=== PATIENT | male | born 1970 | race Caucasian/White ===

== ENCOUNTER → 2017-03-03 | Outpatient (CLI) | payer OTHER ==
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
== END | disposition home or self-care (01) ==
LOC: C.CTS 13:52 → MERGE 13:52
PROVIDERS: ATTEND Family Medicine
DX: S92.344A Nondisplaced fracture of fourth metatarsal bone, right foot, initial encounter for closed fracture (principal); X58.XXXA Exposure to other specified factors, initial encounter

== ENCOUNTER 2020-09-16 13:09 | Inpatient (IN) ==
[2020-09-16 14:22] LABS: Basophils # (auto) 0.08 K/uL (0-0.2); Basophils % (auto) 0.6 %; Eosinophils % (auto) 1.5 %; Hematocrit (blood only) 42.7 % (42-52); Hemoglobin 14.7 g/dL (14.0-18.0); Immature Granulocytes # (auto) 0.02 K/uL (0.00-0.02); Immature Granulocytes % (auto) 0.2 %; Lymphocytes # (auto) 1.92 K/uL (1.2-3.4); Lymphocytes % (auto) 14.5 %; Mean Corpuscular Hemoglobin 27.4 pg (25-34); Mean Corpuscular Hgb Conc 34.4 g/dL (32-36); Mean Corpuscular Volume 79.7 fL (80-100); Mean Platelet Volume 11.8 fL (7.4-10.4); Monocytes # (auto) 0.99 K/uL (0.11-0.59); Monocytes % (auto) 7.5 %; Neutrophils % (auto) 75.7 %; Platelet Count 223 K/uL (130-400); RDW Standard Deviation 40.4 fL (36.4-46.3); Red Blood Count 5.36 M/uL (4.7-6.1); White Blood Count 13.21 K/uL (4.8-10.8)
[2020-09-16 14:25] LABS: Alanine Aminotransferase 65 U/L (12-78); Albumin Level 3.8 gm/dl (3.4-5.0); Aspartate Aminotransferase 336 U/L (15-37); BUN Creatinine Ratio 14.5 (10-20); Blood Urea Nitrogen 22 mg/dl (7-18); Calcium 9.1 mg/dl (8.5-10.1); Carbon Dioxide 22 mmol/L (21-32); Chloride 104 mmol/L (98-107); Est GFR (African American) 60.1 ml/min; Est GFR (Non-African American) 51.9 ml/min; Glucose 97 mg/dl (70-99); Potassium 4.1 mmol/L (3.5-5.1); Sodium 129 mmol/L (136-145)
[2020-09-16 14:28] LABS: Albumin Globulin Ratio 0.9 (0.9-2); Alkaline Phosphatase 60 U/L (45-117); Bilirubin,Total 0.6 mg/dl (0.2-1); Globulin 4.3 gm/dl (2.5-4.0); Total Protein 8.1 gm/dl (6.4-8.2)
[2020-09-16] MEDS ORDERED: ACETAMINOPHEN 1,000 MG/100 ML VIAL IV STA (15:02)
[2020-09-16] MEDS ORDERED: fentaNYL citrate 100 MCG/2 ML VIAL IV STA (15:02)
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
--- NOTE | 2020-09-16 15:42 | XRay Report ---
LEFT TIBIA AND FIBULA 2 VIEWS CLINICAL HISTORY: Left leg pain. Cramping. FINDINGS: AP and lateral views of the left tibia and fibula are obtained. No prior studies are availa ble for comparison at the time of dictation. The skeletal structures are osteopenic. No fracture is s een. The knee and ankle joints are maintained noting degenerative change. The overlying soft tissues are normal as visualized. IMPRESSION: No acute bony abnormality is identified. Electronically signed by: Samir Viera M.D. 09/16/2020 3:40 PM
[2020-09-16] MEDS ORDERED: MoRPHine SULFATE 4 MG/ML 1 ML CARP\\VIAL IV STA ×2 (15:48→17:31)
[2020-09-16] MEDS ORDERED: ETHYL CHLORIDE AER PER SPRAY 100 ML CAN EXT ONE (16:31)
[2020-09-16] MEDS ORDERED: MoRPHine SULFATE 4 MG/ML 1 ML CARP\\VIAL IV PRN (16:37)
--- NOTE | 2020-09-16 16:46 | Orthopedic Consultation ---
Date of Consultation September 16, 2020 Assessment & Plan (1) Compartment syndrome: Discussed case with Dr. Hussein. We will keep patient n.p.o. Dr. Hussein we will see the patient after his clinic is finished later this afternoon. Discussed findings with Dr. Verdugo as well. She will order Covid testing, CBC, basic metabolic panel and an EKG. History of Present Illness Reason for Consultation: Left lateral compartment syndrome Requesting Physician: Dr. Maykel Hussein Attending Physician: Dr. Verdugo History of Present Illness This 50-year-old male is seen today in the emergency department for severe left lower extremity pain that developed Wednesday and has become persistently worse over the past few days. Patient states that he woke this morning and was Unable to bear weight on his left lower extremity. He states that the pain is severe at rest. He states that his feet feel cold and are white in color. He states that initially he had tightness circumferentially around the lower leg but is localized to the lateral aspect over the past day or so. Patient denies any traumatic injury to the area. He states he has been applying some sort of emollient to help with the tension and noticed some redness after applying this. He states that he has not had anything to eat or drink since late last night. Patient states that he did have a partial amputation of his right foot performed in [place] by Dr. Bennett in June.Currently he denies chest pain, shortness of breath, fever, chills, sweats, lethargy but states that the toes in his left foot feel numb. Allergies Allergy/AdvReac Type Severity Reaction Status Date / Time No Known Allergies Allergy Verified 09/16/20 14:45 Home Medications Medication Instructions Recorded Confirmed Type atenolol 50 mg tablet 50 mg PO DAILY 05/18/19 09/16/20 History methimazole 5 mg tablet 10 mg PO DAILY #120 tab 12/18/19 09/16/20 Rx blood sugar diagnostic ([employer] #300 ea 06/05/20 06/10/20 Rx Ultra Blue Test Strip) fenofibrate 54 mg tablet 54 mg PO DAILY #90 tab 06/05/20 09/16/20 Rx gabapentin 600 mg tablet 600 mg PO TID 90 Days #270 tab 06/05/20 09/16/20 Rx lancets 30 gauge ([employer] #300 ea 06/05/20 06/10/20 Rx Lancets) lisinopril 40 mg tablet 40 mg PO DAILY #90 tab 06/05/20 09/16/20 Rx pen needle, diabetic 32 gauge x #400 ea 06/05/20 06/10/20 Rx 5/32" (BD Ultra-Fine Ebonie Pen Needle) rosuvastatin 40 mg tablet 40 mg PO DAILY #90 tab 06/05/20 09/16/20 Rx dulaglutide 1.5 mg/0.5 mL 1.5 mg SUBCUT TU 06/21/20 09/16/20 History subcutaneous pen injector (Trulicity) insulin aspart U-100 100 unit/mL 40 unit SQ DAILY 06/21/20 09/16/20 History (3 mL) subcutaneous pen (Novolog Flexpen U-100 Insulin aspart) insulin glargine 100 unit/mL (3 110 unit SQ HS 06/21/20 09/16/20 History mL) subcutaneous pen (Lantus Solostar U-100 Insulin) meloxicam 15 mg tablet 15 mg PO DAILY 06/21/20 09/16/20 History cholecalciferol (vitamin D3) 125 125 mcg PO DAILY 09/16/20 09/16/20 History mcg (5,000 unit) capsule ciprofloxacin HCl 500 mg tablet 500 mg PO Q12H 09/16/20 09/16/20 History sulfamethoxazole 800 1 tab PO Q12 09/16/20 09/16/20 History mg-trimethoprim 160 mg tablet Patient History Medical History Callus Diabetes type 2, uncontrolled Diabetic foot ulcer associated with type 2 diabetes mellitus Diabetic peripheral neuropathy associated with type 2 diabetes mellitus Dyslipidemia Foot deformity Graves disease Hypertension Hyperthyroidism Smoking Status post partial amputation of foot Surgical History H/O foot surgery Amputation- right toes Family History Mother Diabetes Social History Smoking Status: Current every day smoker Tobacco Type: Cigarettes Hx Alcohol Use: No Hx Substance Use: No Communication Ability: Effective Beliefs That Will Affect Care: None marital status: / Current Living Situation: Parent and Significant Other Current Living Situation Comment: LIVES WITH GIRLFRIEND AND PT'S MOTHER 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al status: unemployed 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 I was unable to palpate dorsalis pedis or posterior tibial pulses. Capillary refill was greater than 3 seconds. Foot was cold to touch and white in color. Lateral aspect of the lower leg was very tense with exquisite tenderness to palpation. Patient experienced excruciating pain with the leg elevated at rest. Using the X2TV compartment syndrome test meter the syringe was inserted into the lateral compartment and read 146 mm Hg. Results & Data ([facility]) Vital Signs (Past 12 Hours) Vital Signs Temp Pulse Pulse Resp BP BP Pulse Ox 09/16/20 15:34 92 H 18 140/87 97 09/16/20 15:28 88 20 139/84 98 09/16/20 13:31 36.7 C 99 H 20 143/91 H 96 Diagnostic Findings Laboratory Results WBC 13.21 K/uL (4.8-10.8) H 09/16/20 13:50 RBC 5.36 M/uL (4.7-6.1) 09/16/20 13:50 Hgb 14.7 g/dL (14.0-18.0) 09/16/20 13:50 Hct 42.7 % (42-52) 09/16/20 13:50 MCV 79.7 fL (80-100) L 09/16/20 13:50 MCH 27.4 pg (25-34) 09/16/20 13:50 MCHC 34.4 g/dL (32-36) 09/16/20 13:50 RDW Std Deviation 40.4 fL (36.4-46.3) 09/16/20 13:50 RDW Coeff of Alondra 14.0 % (11.5-14.5) 09/16/20 13:50 Plt Count 223 K/uL (130-400) 09/16/20 13:50 MPV 11.8 fL (7.4-10.4) H 09/16/20 13:50 Immature Gran % (Auto) 0.2 % 09/16/20 13:50 Neut % (Auto) 75.7 % 09/16/20 13:50 Lymph % (Auto) 14.5 % 09/16/20 13:50 Howell % (Auto) 7.5 % 09/16/20 13:50 Eos % (Auto) 1.5 % 09/16/20 13:50 Baso % (Auto) 0.6 % 09/16/20 13:50 Neut # (Auto) 10.00 K/uL (1.4-6.5) H 09/16/20 13:50 Lymph # (Auto) 1.92 K/uL (1.2-3.4) 09/16/20 13:50 Howell # (Auto) 0.99 K/uL (0.11-0.59) H 09/16/20 13:50 Eos # (Auto) 0.20 K/uL (0-0.5) 09/16/20 13:50 Baso # (Auto) 0.08 K/uL (0-0.2) 09/16/20 13:50 Immature Gran # (Auto) 0.02 K/uL (0.00-0.02) 09/16/20 13:50 ESR 38 mm/hr (0-20) H 09/16/20 13:50 Sodium 129 mmol/L (136-145) L 09/16/20 13:50 Potassium 4.1 mmol/L (3.5-5.1) 09/16/20 13:50 Chloride 104 mmol/L (98-107) 09/16/20 13:50 Carbon Dioxide 22 mmol/L (21-32) 09/16/20 13:50 Anion Gap 3.0 (3-11) 09/16/20 13:50 BUN 22 mg/dl (7-18) H 09/16/20 13:50 Creatinine 1.53 mg/dl (0.6-1.4) H 09/16/20 13:50 Est Cr Clr Drug Dosing Not Reportable 09/16/20 13:50 Est GFR ( Amer) 60.1 ml/min 09/16/20 13:50 Est GFR (Non-Af Amer) 51.9 ml/min 09/16/20 13:50 BUN/Creatinine Ratio 14.5 (10-20) 09/16/20 13:50 Glucose 97 mg/dl (70-99) 09/16/20 13:50 Lactate 1.7 mmol/L (0.4-2.0) 09/16/20 15:57 Calcium 9.1 mg/dl (8.5-10.1) 09/16/20 13:50 Total Bilirubin 0.6 mg/dl (0.2-1) 09/16/20 13:50 AST 336 U/L (15-37) H 09/16/20 13:50 ALT 65 U/L (12-78) 09/16/20 13:50 Alkaline Phosphatase 60 U/L (45-117) 09/16/20 13:50 C-Reactive Protein 3.27 mg/dl (0-0.29) H 09/16/20 13:50 Total Protein 8.1 gm/dl (6.4-8.2) 09/16/20 13:50 Albumin 3.8 gm/dl (3.4-5.0) 09/16/20 13:50 Globulin 4.3 gm/dl (2.5-4.0) H 09/16/20 13:50 Albumin/Globulin Ratio 0.9 (0.9-2) 09/16/20 13:50 Impressions Tibia/Fibula X-Ray 09/16/20 15:13 LEFT TIBIA AND FIBULA 2 VIEWS CLINICAL HISTORY: Left leg pain. Cramping. FINDINGS: AP and lateral views of the left tibia and fibula are obtained. No prior studies are available for comparison at the time of dictation. The skeletal structures are osteopenic. No fracture is seen. The knee and ankle joints are maintained noting degenerative change. The overlying soft tissues are normal as visualized. IMPRESSION: No acute bony abnormality is identified. Electronically signed by: Samir Viera M.D. 09/16/2020 3:40 PM (1) Compartment syndrome Compartment syndrome location: lower extremity Compartment syndrome type: non-traumatic Laterality: left Qualified Code(s): M79.A22 - Nontraumatic compartment syndrome of left lower extremity
[2020-09-16] MEDS ORDERED: PROPOFOL IV EMULSION 10 MG/ML 20 ML VIAL IV ONE (17:48)
[2020-09-16] MEDS ORDERED: ONDANSETRON INJ 2 MG/ML 2 ML VIAL ONE (17:48)
[2020-09-16] MEDS ORDERED: GLYCOPYRROLATE 0.2 MG/ML VIAL ONE (17:48)
[2020-09-16] MEDS ORDERED: ROCURONIUM BROMIDE 10 MG/ML 5 ML VIAL IV ONE (17:48)
[2020-09-16] MEDS ORDERED: ePHEDrine sulfate 50 MG/ML SYR ONE (17:48)
[2020-09-16] MEDS ORDERED: MIDAZOLAM HCL 1 MG/ML 2ML VIAL ONE (17:48)
[2020-09-16] MEDS ORDERED: LIDOCAINE 2% 2 ML VIAL/AMP(20MG/ML) INFIL ONE (17:48)
[2020-09-16] MEDS ORDERED: NEOSTIGMINE METHYLSULFATE 1 MG/ML 10ML VIAL ONE (17:48)
[2020-09-16] MEDS ORDERED: PHENYLEPHRINE 100MCG/ML 5ML SYR ONE (17:48)
[2020-09-16] MEDS ORDERED: fentaNYL citrate 100 MCG/2 ML VIAL ONE (17:49)
[2020-09-16] MEDS ORDERED: ATROPINE SULFATE 0.1 MG/ML 10ML SYR IV PRN (18:03)
[2020-09-16] MEDS ORDERED: fentaNYL citrate 100 MCG/2 ML VIAL IV PRN (18:03)
[2020-09-16] MEDS ORDERED: ceFAZolin 2000MG 2,000 MG/15 ML SYR IV ONE (18:03)
[2020-09-16] MEDS ORDERED: ePHEDrine sulfate 50 MG/ML AMP IV PRN (18:03)
[2020-09-16] MEDS ORDERED: ONDANSETRON INJ 2 MG/ML 2 ML VIAL IV PRN ×2 (18:03→20:41)
[2020-09-16] MEDS ORDERED: HYDROmorphone INJ 2 MG/ML SYR/VIAL IV PRN (18:03)
--- NOTE | 2020-09-16 18:03 | Anesthesiology Consultation ---
Date of Service September 16, 2020 Assessment & Plan ASA [id number] Proposed Anesthesia Anesthesia Type: General Risk / Benefits Reviewed With: PT / POA / Parent / Guardian, Accepts Plan and Informed Consent Obtained History Surgery Operation Date: 09/16/20 10:20 Proposed Procedures p Left Leg Anterior and Lateral Compartment Release/Fasciotomy - Maykel Hussein MD Height/Weight Height: 6 ft 3 in Allergies Allergy/AdvReac Type Severity Reaction Status Date / Time No Known Allergies Allergy Verified 09/16/20 14:45 Medications Home Medications Medication Instructions Recorded Confirmed Last Taken atenolol 50 mg tablet 50 mg PO DAILY 05/18/19 09/16/20 09/16/20 methimazole 5 mg tablet 10 mg PO DAILY #120 tab 12/18/19 09/16/20 09/16/20 blood sugar diagnostic ([employer] #300 ea 06/05/20 06/10/20 Unknown Ultra Blue Test Strip) fenofibrate 54 mg tablet 54 mg PO DAILY #90 tab 06/05/20 09/16/20 09/16/20 gabapentin 600 mg tablet 600 mg PO TID 90 Days #270 tab 06/05/20 09/16/20 09/16/20 lancets 30 gauge ([employer] #300 ea 06/05/20 06/10/20 Unknown Lancets) lisinopril 40 mg tablet 40 mg PO DAILY #90 tab 06/05/20 09/16/20 09/16/20 pen needle, diabetic 32 gauge x #400 ea 06/05/20 06/10/20 Unknown 532" (BD Ultra-Fine Ebonie Pen Needle) rosuvastatin 40 mg tablet 40 mg PO DAILY #90 tab 06/05/20 09/16/20 09/16/20 dulaglutide 1.5 mg/0.5 mL 1.5 mg SUBCUT TU 06/21/20 09/16/20 09/10/20 subcutaneous pen injector (Trulicity) insulin aspart U-100 100 unit/mL 40 unit SQ DAILY 06/21/20 09/16/20 09/16/20 (3 mL) subcutaneous pen (Novolog 40 units Flexpen U-100 Insulin aspart) insulin glargine 100 unit/mL (3 110 unit SQ HS 06/21/20 09/16/20 09/15/20 mL) subcutaneous pen (Lantus Solostar U-100 Insulin) meloxicam 15 mg tablet 15 mg PO DAILY 06/21/20 09/16/20 09/16/20 cholecalciferol (vitamin D3) 125 125 mcg PO DAILY 09/16/20 09/16/20 09/16/20 mcg (5,000 unit) capsule ciprofloxacin HCl 500 mg tablet 500 mg PO Q12H 09/16/20 09/16/20 09/16/20 sulfamethoxazole 800 1 tab PO Q12 09/16/20 09/16/20 09/16/20 mg-trimethoprim 160 mg tablet Active Medications Generic Name Dose Route Start Last Admin Trade Name Freq PRN Reason Stop Dose Admin Morphine Sulfate 4 mg 09/16/20 16:37 09/16/20 16:41 Morphine Sulfate 4 Mg/Ml 1 Ml Carp\\Vial IV 09/30/20 16:36 4 mg Q2H PRN Administration Pain NPO Date Last Intake of Fluids: 09/16/20 Time Last Intake of Fluids: 12:00 Date Last Intake of Solids: 09/16/20 Time Last Intake of Solids: 00:00 Past Medical History Medical History Callus Diabetes type 2, uncontrolled Diabetic foot ulcer associated with type 2 diabetes mellitus Diabetic peripheral neuropathy associated with type 2 diabetes mellitus Dyslipidemia Foot deformity Graves disease Hypertension Hyperthyroidism Smoking Status post partial amputation of foot Exercise / Class Metabolic Activity III < 4 Walking/Shop/Light housework Past Family History Family History Mother Diabetes Past Surgical History Surgical History H/O foot surgery Amputation- right toes Past Anesthesia History No Hx of Anesthesia Complications and No Family Hx of Anesthesia Complications History of PONV No Hx of PONV and No Hx of Motion Sickness Social History Smoking Status: Current every day smoker Hx Alcohol Use: No Hx Substance Use: No Review of Systems denies fever/cough/ colds/ chest pain/ SOB/ JOSE denies JOSE Physical Exam Vital Signs Last Vital Signs Temp 36.7 C 09/16/20 13:31 Pulse 86 09/16/20 17:42 Resp 20 09/16/20 17:42 BP 129/85 09/16/20 17:42 Pulse Ox 96 09/16/20 17:42 ENMT Mouth: + dentition abnormality and + poor dentition; no TMJ abnormality Thyromental Distance: > or= 3.5 Finger Breadths Mallampati Class: II Neck + facial hair; neck extension not limited Respiratory normal respiratory effort; no respiratory distress Auscultation: lungs clear to auscultation bilaterally Cardiovascular Rate/Rhythm: regular rate and regular rhythm Neurologic moves all extremities Psychiatric Orientation: alert and oriented x 3 Testing Laboratory Results 09/16/20 13:50 09/16/20 13:50
--- NOTE | 2020-09-16 19:37 | Operative Report ---
Post Operative Report Pre & Post Diagnosis Operation Date: 09/16/20 10:20 Pre-Op Diagnosis: Left leg compartment syndrome Post-Op Diagnosis: Left leg compartment syndrome I identified the patient and participated in the time-out.: Yes Procedure Operation Date: 09/16/20 10:20 Actual Procedures p Left Leg Anterior and Lateral Compartment Fasciotomy(Left) - Maykel Hussein MD Surgeon EDSON Hussein MD [employer] Tanmay Monaco PA-C Estimated Blood Loss 10 Findings Consistent with Post-Op Diagnosis Specimens none Drains none Complications none Disposition Accompanied Patient To Recovery: Yes Indications This 50-year-old male presented to the ED with complaints of intractable left leg pain. Symptoms began on Wednesday evening. Pain has persisted. He initially thought it was a cramp, but it would not resolve. Evaluation in the ED revealed was consistent with compartment syndrome. He was taken emergently to the OR. Description of Procedure Patient was taken to the operating room after being administered general anesthesia. He was prepped and draped in the usual sterile fashion. Please see Dr. Hussein's operative report for specifics of the procedure. I was present for the entire case from initial patient positioning through final wound closure. Assistance was provided in tissue retraction, hemostasis, and final dressing management. Patient was taken to the recovery room in satisfactory condition. I attest to the content of the Intraoperative Record and any orders documented therein. Any exceptions are noted below.
--- NOTE | 2020-09-16 19:40 | Operative Report ---
Post Operative Report Pre & Post Diagnosis Operation Date: 09/16/20 10:20 Pre-Op Diagnosis: Left leg compartment syndrome Post-Op Diagnosis: Left leg compartment syndrome I identified the patient and participated in the time-out.: Yes Procedure Operation Date: 09/16/20 10:20 Actual Procedures p Left Leg Anterior and Lateral Compartment Fasciotomy(Left) - Maykel Hussein MD Surgeon Maykel Hussein MD Child Care Coordinator Tristen Monaco no resident or fellow available Estimated Blood Loss 10 Findings Consistent with Post-Op Diagnosis Clinically normal-appearing pressures within the anterior and posterior compart ments. There was bleeding muscle in both the anterior and posterior compartments. The muscles did not bulge out of the fascial compartments. The muscles were contractile tile with Bovie electrocautery. The lateral compartment was very tense and bulged out of the compartment when opened. The muscle was darker in color almost bruised. It was not contractile to Bovie electrocautery but it was showing evidence of capillary bleeding. Specimens None Anesthesia Type General Complications None Disposition Accompanied Patient To Recovery: No Disposition: Recovery Room Indications Patient is 50. He has an approximately 48-hour history of the apparent spontaneous onset of left lateral leg pain which he describes as a cramp. He came to the emergency room today. I was notified about this at approximately 3:30 PM. ALLI Toussaint attended to the patient and measured the lateral compartment pressure at 143. I assessed the patient at approximately 5 PM and agreed with the diagnosis of anterior and or lateral compartment syndrome. He was then taken urgently to the operating room for fasciotomy. There is no history of injury. He has weakness of foot eversion and dorsiflexion as well as numbness on the top of the foot. Circulation is normal. Clinically there is enlargement and bulging of the anterior lateral compartment muscles. He is not on blood thinners. He has had a recent right foot operation for apparent infection. He is diabetic. I have recommended urgent decompression and he agreed to proceed. I discussed with him the possibility that there could already be permanent tissue damage given the timeframe from the onset of his symptoms until surgical management. We also discussed the possibility for other things including an a bscess. Description of Procedure Informed consent obtained. Patient identified. He identified the operative site as the left leg. I marked with my initials. A preoperative surgical timeout was performed. A preop dose of antibiotics was given. He was taken to the operating room and positioned supine on the operating room table. His Covid test came back negative. Initially we were following Covid precautions protocol but once the test came back this was not necessary. A bump was placed under the left hip. A tourniquet is applied to the left thigh but not inflated. The left leg was prepped and draped in the usual sterile fashion. DVT prophylaxis with an SCD on the contralateral limb. The examination showed capillary refill less than 2 seconds in the foot and toes with dorsalis pedis and posterior tib pulses 1-2+. There was bulging over the anterolateral aspect of the leg from several centimeters distal to the fibular head to about 18 to 20 cm distal. I marked out an incision just in front of the shaft of the fibula and made an incision over the proximal two thirds of the leg approximately 18 to 20 cm in length. I elevated the subcutaneous tissue preserving perforators were possible. I identified the anterior lateral compartments. The anterior compartment was incised. The muscle heartily bulged out of the compartment. I then performed dissection with the scissors proximally and distally supra and subfascially and then released the entire compartment from the tibial proximally distally within 10 cm of the tip of the lateral malleolus. The muscle was contractile and had capillary bleeding. I identified then the lateral compartment which was obviously bulging. This was incised in a likewise fashion and the muscle immediately bulged out substantially. I used a dissecting scissors to elevate the tissue above and below the fascia and then incised both proximally and distally. This was done under direct visualization with the scissors. I did not see or feel the superficial peroneal nerve distally. Proximally I released up to the fibular neck only the fascia and did not encounter the proximal perone al nerve at the fibular neck. The muscle in the lateral compartment was friable appeared bruised and was not contractile. It did have microcapillary bleeding present. I then felt the posterior compartment and that tissue felt normal. I elevated the fascia a little bit front and back on the lateral compartment. I incised the posterior compartment fascia through the lateral compartment and it did not bulge at all. It was soft. The muscle was pink and contractile. The muscle in the anterior compartment was also contractile with Bovie. The wounds were copiously irrigated with sterile saline I left the wounds open. They were covered with Xeroform 4 x 4's ABD and a noncircumferential nonpressure generating dressing consisting of Tegaderms. The patient was awake from anesthesia difficulty taken to recovery room in stable condition. There were no specimens or complications counts were correct blood loss is estimated to be 10 cc. Meticulous hemostasis was performed with electrocautery. At the conclusion of the operation spoke to patient's mother and informed her of my findings. I discussed with her the concerning findings for the lateral compartment musculature. This is potentially necrotic tissue. Further surgery is likely to be necessary. He will be admitted to PCU and will consult medicine. He will have hourly neurovascular checks. Consider returning to the OR and 48 to 72 hours to recheck muscle and potentially close wounds. The wound will not be iced and will be kept in neutral elevation. I attest to the content of the Intraoperative Record and any orders documented therein. Any exceptions are noted below.
[2020-09-16] MEDS ORDERED: PHARMACY GLYCEMIC MGMT CONSULT PRN (19:54)
--- NOTE | 2020-09-16 20:04 | Anesthesiology Progress Note ---
Date of Service September 16, 2020 Anesthesia Post Procedure Vital Signs Vital Signs: Temp Pulse Pulse Pulse Resp BP BP 09/16/20 20:00 75 16 136/72 09/16/20 19:50 79 20 119/71 09/16/20 19:40 83 14 119/57 L 09/16/20 19:32 36.4 C L 80 14 92/54 L 09/16/20 18:02 36.6 C 79 20 09/16/20 17:42 86 20 129/85 09/16/20 17:14 94 H 20 09/16/20 15:34 92 H 18 09/16/20 15:28 88 20 09/16/20 13:31 36.7 C 99 H 20 143/91 H BP Pulse Ox 09/16/20 20:00 98 09/16/20 19:50 99 09/16/20 19:40 95 09/16/20 19:32 95 09/16/20 18:02 150/81 H 94 09/16/20 17:42 96 09/16/20 17:14 121/80 96 09/16/20 15:34 140/87 97 09/16/20 15:28 139/84 98 09/16/20 13:31 96 Pain Intensity Left Calf: Pain Intensity: 8 Transfer of Care Handoff Completed per policy Notes Mental Status: alert / awake / arousable and participated in evaluation Patient Amnestic to Procedure: Yes Nausea / Vomiting: adequately controlled Pain: adequately controlled Airway Patency, RR, SpO2: stable & adequate BP & HR: stable & adequate Hydration State: stable & adequate Anesthetic Complications: no major complications apparent and Pt Satisfied with anesthetic care
[2020-09-16] MEDS ORDERED: TAMSULOSIN HCL 0.4 MG CAP PO PRN (20:41)
[2020-09-16] MEDS ORDERED: MAGNESIUM HYDROXIDE SUSP 30 ML UDC PO PRN (20:41)
[2020-09-16] MEDS ORDERED: diphenhydrAMINE 50 MG/ML VIAL IV PRN (20:41)
[2020-09-16] MEDS ORDERED: NALOXONE HCL 0.4 MG/1 ML VIAL/CARP IV PRN (20:41)
[2020-09-16] MEDS ORDERED: bisacodyL 10 MG SUPP PR PRN (20:41)
[2020-09-16] MEDS ORDERED: METOCLOPRAMIDE HCL INJ 5 MG/ML 2 ML VIAL IV PRN (20:41)
[2020-09-16] MEDS ORDERED: ALUMINUM/MAGNESIUM SUSP 30 ML UDC PO PRN (20:41)
[2020-09-16] MEDS ORDERED: SODIUM CHLORIDE 0.9% 1000ML 1,000 ML IV SCH (21:00)
[2020-09-16] MEDS ORDERED: GLUCOSE 10 TABS/TUBE PO PRN (21:15)
[2020-09-16] MEDS ORDERED: DEXTROSE 50% 50 ML SYRINGE IV PRN (21:15)
[2020-09-16] MEDS ORDERED: GLUCOSE 40% GEL 15 GM TUBE PO PRN (21:15)
[2020-09-16] MEDS ORDERED: INSULIN GLARGINE SOLOSTAR 100 UNITS/ML 3 ML PEN SC ONE (21:15)
[2020-09-16] MEDS ORDERED: CARBOHYDRATES FOR HYPOGLYCEMIA PO PRN (21:15)
[2020-09-16] MEDS ORDERED: GLUCAGON FOR INJ 1 MG VIAL IM PRN (21:15)
[2020-09-16] MEDS: DOCUSATE SODIUM 100 MG CAP PO SCH (21:50)
[2020-09-16] MEDS: SENNA 8.6 MG TAB PO SCH (21:53)
[2020-09-16] MEDS: SULFAMETHOXAZOLE/TRIMETHOPRIM DS 800/160MG TAB PO SCH (21:54)
[2020-09-16] MEDS: GABAPENTIN 600 MG TAB PO SCH (21:55)
[2020-09-16] MEDS: ACETAMINOPHEN 500 MG TAB PO SCH (21:55)
[2020-09-16] MEDS: INSULIN ASPART 100 UNITS/ML 3 ML PEN SC SCH (21:58)
[2020-09-16] MEDS: LACTATED RINGER'S 1,000 ML IV SCH (22:05)
--- NOTE | 2020-09-16 22:16 | Hospitalist Consultation ---
Date of Consultation September 16, 2020 Assessment & Plan (1) Compartment syndrome: Surgical Fasciotomy to left lower leg- anterior and lateral compartments released. - EBL 10 ml - surgical site care per primary team- drains, dressing - ABX per primary team - Follow NV/CV exams already ordered q1 hour - Follow muscle injury pattern- likely cause of his elevated AST of 336 (rhabdo/muscle injry) - LR at 125 per hour follow urine output to guide volume replacement - CMP to follow AST and renal function in the morning - CK in the morning- recommend repeat later in day to ensure downtrend Patient is on tiered pain medications with rescue narcan available VTE: SCD's- chemoprophylaxis per primary team (2) Diabetes type 2, uncontrolled: Pharmacy consult placed by home team for glycemic control - Basal bolus dosing entered by pharmacy- follow (3) Diabetic foot ulcer associated with type 2 diabetes mellitus: S/p amputation in June 2020 - He reports that he was placed on Cipro at his most recent visit for "an odor" - Recommend reviewing his [facility] records and culture data if available - Currently received ANCEF preop and postoperatively and his Bactrim DS was restarted. - Goal would be to continue coverage or equivalent (4) MARIA ANTONIA (acute kidney injury): Stage I mild- with baseline [employer] at 1.3-- currnt 1.53 - Follow in morning s/p fascitomiy - LR at 125ml/hr, adjust based on urine output - HCO3 22 - Goal Euvolemia to slight positive postoperative- LR at 125 ml per hour (5) Dyslipidemia: Continue Rosuvastatin 40 mg Daily and continue fenofibrate no acute need (6) Hypertension: Currently controlled goal would be <130 with DM, HTN, HLD - Recommend holding lisinopril for 24-48 hours ensure renal function stable - Consider adding PRN for SBP >160-180- follow (7) Obesity, morbid, BMI 40.0-49.9: Chronic- excessive calorie intake - weight loss would assist in decreasing overall CV mortality risk (8) Graves disease: Continue methimazole History of Present Illness Reason for Consultation: Medical management and following of kidney function following compartment syndrome Requesting Physician: Dr. Keenan MERCER Attending Physician: Maykel Hussein MD History of Present Illness 50 YOM with past medical history of: DM and diabetic ulcerations for which he follows with the wound clinic, HTN, HLD, Current smoker 1PPD, Graves disease on methimazole, neuropathy, and 3 toe amputation in June2020 of right foot. POD #0 from left anterior and lateral compartment fasciotomy secondary to spontaneous compartment syndrome. Patient reported to the EMD today with approximately 48 hours of left calf pain, that he described as a "bad cramp that would not go away". He denies any trauma or injury to the leg as well as no physical stress to his legs. He reports that he was wearing a walking boot to his right foot secondary to ulcerations. He had amputation performed in [facility] in June, and went back there this past week for it developing "an odor", where he reports they put him on Cipro and Bactrim orally. He was Urgently taken to the OR by Orthopaedics for fasciotomy as he elevated compartment pressure of 143, 10/10 pain, decrease pulse, and inability to flexion or extension of the left ankle. Patient was evaluated in the room post PACU. He was briskly awake, and had tolerated some ice water. He feels his pain is controlled and feels the leg is "better", he is able to flex and extend his left ankle and wiggle his toes, lower leg is warm and DP and PT are palpable with sensation circumferentially present around dressing and leg. He has yet to void post-operatively. Additions: - IVF changed to LR and rate increased to 125 ml/hour - CMP, CBC, CK added to morning labs - Bladder scan prn for decreased to no urine output (<120ml/4 hours) Held: - Lisinopril morning dose- follow renal function and volume status Discussed case with Dr. Gonzalez realreyna and for follow up throughout the night. Allergies Allergy/AdvReac Type Severity Reaction Status Date / Time No Known Allergies Allergy Verified 09/16/20 14:45 Home Medications Medication Instructions Recorded Confirmed Type atenolol 50 mg tablet 50 mg PO DAILY 05/18/19 09/16/20 History methimazole 5 mg tablet 10 mg PO DAILY #120 tab 12/18/19 09/16/20 Rx blood sugar diagnostic (OneTouch #300 ea 06/05/20 06/10/20 Rx Ultra Blue Test Strip) fenofibrate 54 mg tablet 54 mg PO DAILY #90 tab 04/28/21 08/09/21 Rx gabapentin 600 mg tablet 600 mg PO TID 90 Days #270 tab 06/05/20 09/16/20 Rx lancets 30 gauge (OneTouch Delica #300 ea 06/05/20 06/10/20 Rx Lancets) lisinopril 40 mg tablet 40 mg PO DAILY #90 tab 06/05/20 09/16/20 Rx pen needle, diabetic 32 gauge x #400 ea 06/05/20 06/10/20 Rx 5/32" (BD Ultra-Fine Ebonie Pen Needle) rosuvastatin 40 mg tablet 40 mg PO DAILY #90 tab 06/05/20 09/16/20 Rx dulaglutide 1.5 mg/0.5 mL 1.5 mg SUBCUT TU 06/21/20 09/16/20 History subcutaneous pen injector (Trulicity) insulin aspart U-100 100 unit/mL 40 unit SQ DAILY 06/21/20 09/16/20 History (3 mL) subcutaneous pen (Novolog Flexpen U-100 Insulin aspart) insulin glargine 100 unit/mL (3 110 unit SQ HS 06/21/20 09/16/20 History mL) subcutaneous pen (Lantus Solostar U-100 Insulin) meloxicam 15 mg tablet 15 mg PO DAILY 06/21/20 09/16/20 History cholecalciferol (vitamin D3) 125 125 mcg PO DAILY 09/16/20 09/16/20 History mcg (5,000 unit) capsule ciprofloxacin HCl 500 mg tablet 500 mg PO Q12H 09/16/20 09/16/20 History sulfamethoxazole 800 1 tab PO Q12 09/16/20 09/16/20 History mg-trimethoprim 160 mg tablet Patient History Medical History Callus Diabetes type 2, uncontrolled Diabetic foot ulcer associated with type 2 diabetes mellitus Diabetic peripheral neuropathy associated with type 2 diabetes mellitus Dyslipidemia Foot deformity Graves disease Hypertension Hyperthyroidism Smoking Status post partial amputation of foot Surgical History H/O foot surgery Amputation- right toes Family History Mother Diabetes Social History Smoking Status: Current every day smoker Tobacco Type: Cigarettes Cigarettes Per Day: 20; Hx Alcohol Use: No Hx Substance Use: No Preferred Language: Belarusian Communication Ability: Effective 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: No Beliefs That Will Affect Care: None marital status: / Current Living Situation: Family and Significant Other Current Living Situation Comment: LIVES WITH GIRLFRIEND AND PT'S MOTHER 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al status: unemployed 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: "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" Other Information That Helps Us Care for You: No Feels Safe at Home: Yes Safety Concerns: Feels Safe At This Time caffeine: Yes (Consumes on average 1 cup of regular coffee per day ) during the past year weight has: remained stable Physical Activity Frequency Comment: Rarely Assistive Devices: Walker Review of Systems Review of Systems: REVIEW OF SYSTEMS: Constitutional: No fever, sweats or chills Eyes: No diplopia, no worsening or blurred vision ENT: normal hearing, no trouble swallowing Respiratory: No cough, sputum, dyspnea at rest or on exertion Cardiovascular: No chest pain, tightness or palpitations Abdomen: No pain, nausea, vomiting, diarrhea or constipation Musculoskeletal: (+) knee pain, left lower leg pain, swelling Neurologic: No weakness, numbness/tingling, or balance problems Psychiatric: No anxiety or depression Skin: No rash or itch Physical Exam Physical Exam: PHYSICAL EXAM: General: awake, alert, no apparent distress Head: Normocephalic, atraumatic ENT: PERRL, EOMI, no pharyngeal exudate, mucous membranes moist Neuro: AAO x 3, speech clear and appropriate, strength intact bilaterally 5/5 upper, 5/5 right lower extremity, minimal flexion and extensor movement of left ankle, wiggles toes, sensation intact and pain controlled, compartment of LLE is soft Chest: equal rise and fall of the chest, no accessory muscle use, no heaves or thrills, scattered wheeze bilaterally, on 2LNC Cardiac: Regular rate and rhythm, telemetry reviewed- NSR no ectopy, skin warm dry, cap refill <3 seconds, peripheral pusles +2 no JVD, no murmur, no edema, left toes warm and pulses 2+ DP and PT GI: NABS x 4 quadrants, soft, nontender to palpation, no rebound, guarding or tenderness : Spontaneously voiding, no pain, no CVA tenderness, MSK: right foot wrapped in kerlex clean and dry, s/p 3 toe amputation(he has no remaining toes on the right foot). Psych: Normal mood and affect Skin: no rash or erythema Results & Data Results & Data ([facility]) Vital Signs (Past 12 Hours) Vital Signs Temp Pulse Pulse Pulse Resp BP BP 09/16/20 21:35 35.6 C L 77 12 128/69 09/16/20 21:05 36.6 C 72 13 111/67 09/16/20 20:25 37 C 88 16 135/79 09/16/20 20:10 36.2 C L 77 16 129/76 09/16/20 20:00 75 16 136/72 09/16/20 19:50 79 20 119/71 09/16/20 19:40 83 14 119/57 L 09/16/20 19:32 36.4 C L 80 14 92/54 L 09/16/20 18:02 36.6 C 79 20 09/16/20 17:42 86 20 129/85 09/16/20 17:14 94 H 20 09/16/20 15:34 92 H 18 09/16/20 15:28 88 20 09/16/20 13:31 36.7 C 99 H 20 143/91 H BP Pulse Ox 09/16/20 21:35 94 09/16/20 21:05 95 09/16/20 20:25 99 09/16/20 20:10 95 09/16/20 20:00 98 09/16/20 19:50 99 09/16/20 19:40 95 09/16/20 19:32 95 09/16/20 18:02 150/81 H 94 09/16/20 17:42 96 09/16/20 17:14 121/80 96 09/16/20 15:34 140/87 97 09/16/20 15:28 139/84 98 09/16/20 13:31 96 Laboratory Results Abnormal Labs 09/16/20 09/16/20 09/16/20 13:50 13:50 13:50 WBC 13.21 H MCV 79.7 L MPV 11.8 H Neut # (Auto) 10.00 H Lipscomb # (Auto) 0.99 H ESR 38 H Sodium 129 L BUN 22 H Creatinine 1.53 H POC Glucose AST 336 H C-Reactive Protein Globulin 4.3 H 09/16/20 09/16/20 09/16/20 13:50 19:34 21:32 WBC MCV MPV Neut # (Auto) Lipscomb # (Auto) ESR Sodium BUN Creatinine POC Glucose 139 H 150 H AST C-Reactive Protein 3.27 H Globulin Diagnostic Findings Tibia/Fibula X-Ray 09/16/20 15:13 LEFT TIBIA AND FIBULA 2 VIEWS CLINICAL HISTORY: Left leg pain. Cramping. FINDINGS: AP and lateral views of the left tibia and fibula are obtained. No prior studies are available for comparison at the time of dictation. The skeletal structures are osteopenic. No fracture is seen. The knee and ankle joints are maintained noting degenerative change. The overlying soft tissues are normal as visualized. IMPRESSION: No acute bony abnormality is identified. Electronically signed by: Samir Viera M.D. 09/16/2020 3:40 PM Medications Administered Home Medications atenolol 50 mg tablet 50 mg PO DAILY 05/18/19 [History Confirmed 09/16/20] methimazole 5 mg tablet 10 mg PO DAILY #120 tab 12/18/19 [Rx Confirmed 09/16/20] blood sugar diagnostic ([employer] Ultra Blue Test Strip) #300 ea 06/05/20 [Rx Confirmed 06/10/20] fenofibrate 54 mg tablet 54 mg PO DAILY #90 tab 06/05/20 [Rx Confirmed 09/16/20] gabapentin 600 mg tablet 600 mg PO TID 90 Days #270 tab 06/05/20 [Rx Confirmed 09/16/20] lancets 30 gauge (QustodianTouch Delica Lancets) #300 ea 06/05/20 [Rx Confirmed 06/10/20] lisinopril 40 mg tablet 40 mg PO DAILY #90 tab 06/05/20 [Rx Confirmed 09/16/20] pen needle, diabetic 32 gauge x 5/32" (BD Ultra-Fine Ebonie Pen Needle) #400 ea 06/05/20 [Rx Confirmed 06/10/20] rosuvastatin 40 mg tablet 40 mg PO DAILY #90 tab 06/05/20 [Rx Confirmed 09/16/20] dulaglutide 1.5 mg/0.5 mL subcutaneous pen injector (Trulicity) 1.5 mg SUBCUT TU 06/21/20 [History Confirmed 09/16/20] insulin aspart U-100 100 unit/mL (3 mL) subcutaneous pen (Novolog Flexpen U-100 Insulin aspart) 40 unit SQ DAILY 06/21/20 [History Confirmed 09/16/20] insulin glargine 100 unit/mL (3 mL) subcutaneous pen (Lantus Solostar U-100 Insulin) 110 unit SQ HS 06/21/20 [History Confirmed 09/16/20] meloxicam 15 mg tablet 15 mg PO DAILY 06/21/20 [History Confirmed 09/16/20] cholecalciferol (vitamin D3) 125 mcg (5,000 unit) capsule 125 mcg PO DAILY 09/16/20 [History Confirmed 09/16/20] ciprofloxacin HCl 500 mg tablet 500 mg PO Q12H 09/16/20 [History Confirmed 09/16/20] sulfamethoxazole 800 mg-trimethoprim 160 mg tablet 1 tab PO Q12 09/16/20 [History Confirmed 09/16/20] Active Medications Acetaminophen (Acetaminophen 500 Mg Tab) 1,000 mg PO Q8 THOMAS Stop: 10/16/20 21:59 Last Admin: 09/16/20 21:55 Dose: 1,000 mg Documented by: Al Hydrox/Mg Hydrox/Simethicone (Aluminum/Magnesium Susp 30 Ml Udc) 15 ml PO Q4H PRN PRN Reason: Heartburn Stop: 10/16/20 20:40 Ascorbic Acid (Ascorbic Acid 500 Mg Tab) 500 mg PO BIDM [facility] Stop: 10/17/20 07:59 Aspirin (Aspirin 325 Mg Ectab) 325 mg PO BID THOMAS Stop: 10/17/20 08:59 Atenolol (Atenolol 50 Mg Tablet) 50 mg PO DAILY [facility]OMAS Stop: 10/17/20 08:59 Bisacodyl (Bisacodyl 10 Mg Supp) 10 mg TX DAILY PRN PRN Reason: Constipation Stop: 10/16/20 20:40 Dextrose (Dextrose 50% 50 Ml Syringe) 25 - 50 ml IV UD PRN; Protocol PRN Reason: Hypoglycemia Protocol Stop: 10/16/20 21:14 Diphenhydramine HCl (Diphenhydramine 50 Mg/Ml Vial) 25 mg IV Q8H PRN PRN Reason: Itching Stop: 10/16/20 20:40 Docusate Sodium (Docusate Sodium 100 Mg Cap) 100 mg PO BID THOMAS Stop: 10/16/20 20:59 Last Admin: 09/16/20 21:50 Dose: Not Given Documented by: Fenofibrate (Fenofibrate Nanocrystallized 48 Mg Tablet) 48 mg PO DAILY [facility] Stop: 10/17/20 08:59 Ferrous Gluconate (Ferrous Gluconate 324 Mg Tab) 324 mg PO BIDM THOMAS Stop: 10/17/20 07:59 Gabapentin (Gabapentin 600 Mg Tab) 600 mg PO TID THOMAS Stop: 10/16/20 20:59 Last Admin: 09/16/20 21:55 Dose: 600 mg Documented by: Glucagon (Glucagon For Inj 1 Mg Vial) 1 mg IM UD PRN; Protocol PRN Reason: Hypoglycemia Protocol Stop: 10/16/20 21:14 Glucose (Glucose 40% Gel 15 Gm Tube) 15 - 30 gm PO UD PRN; Protocol PRN Reason: Hypoglycemia Protocol Stop: 10/16/20 21:14 Glucose (Glucose 10 Tabs/Tube) 4 - 8 tabs PO UD PRN; Protocol PRN Reason: Hypoglycemia Protocol Stop: 10/16/20 21:14 Hydromorphone HCl (Hydromorphone Inj 0.5 Mg/0.5 Ml Syr) 0.5 mg IV Q2H PRN PRN Reason: Pain or Pre PT Stop: 09/30/20 20:40 Cefazolin Sodium (Ancef 2000mg) 2,000 mg in 15 mls @ 3.75 mls/min IV Q8H [facility]; Protocol Stop: 09/17/20 10:03 Lactated Ringer's (Lr) 1,000 mls @ 125 mls/hr IV .Q8H [facility] Stop: 10/16/20 21:44 Last Admin: 09/16/20 22:05 Dose: 125 mls/hr Documented by: Insulin Aspart (Insulin Aspart 100 Units/Ml 3 Ml Pen) 0 units SC ACHS [facility] Stop: 10/16/20 20:59 Last Admin: 09/16/20 21:58 Dose: 1 units Documented by: Insulin Aspart (Insulin Aspart 100 Units/Ml 3 Ml Pen) 0 units SC 0200 [facility] Stop: 09/17/20 02:01 Lisinopril (Lisinopril 40 Mg Tab) 40 mg PO DAILY [facility] Stop: 10/17/20 08:59 Magnesium Hydroxide (Magnesium Hydroxide Susp 30 Ml Udc) 30 ml PO Q6H PRN PRN Reason: Constipation Stop: 10/16/20 20:40 Methimazole (Methimazole 5 Mg Tablet) 10 mg PO DAILY [facility] Stop: 10/17/20 08:59 Metoclopramide HCl (Metoclopramide Hcl Inj 5 Mg/Ml 2 Ml Vial) 10 mg IV Q6H PRN PRN Reason: Nausea And Vomiting Stop: 10/16/20 20:40 Miscellaneous (Carbohydrates For Hypoglycemia ) 15 - 30 gm PO UD PRN PRN Reason: Hypoglycemia Treatment Stop: 10/16/20 21:14 Miscellaneous Information (Pharmacy Glycemic Mgmt Consult) 1 ea N/A UD PRN PRN Reason: Consult Stop: 10/16/20 19:53 Multivitamins (Multivitamin Tab) 1 tab PO QAM [facility] Stop: 10/17/20 08:59 Naloxone HCl (Naloxone Hcl 0.4 Mg/1 Ml Vial/Carp) 0.1 mg IV Q5M PRN PRN Reason: Oversedation/Resp Depression Stop: 10/16/20 20:40 Ondansetron HCl (Ondansetron Inj 2 Mg/Ml 2 Ml Vial) 4 mg IV Q6H PRN PRN Reason: Nausea And Vomiting Stop: 10/16/20 20:40 Oxycodone HCl (Oxycodone Hcl Ir 5 Mg Tab (Immediate Release)) 5 - 10 mg PO Q4H PRN PRN Reason: Pain or Pre PT Stop: 09/30/20 20:40 Rosuvastatin Calcium (Rosuvastatin Calcium 20 Mg Tab) 40 mg PO DAILY [facility] Stop: 10/17/20 08:59 Sennosides (Senna 8.6 Mg Tab) 17.2 mg PO HS [facility] Stop: 10/16/20 20:59 Last Admin: 09/16/20 21:53 Dose: Not Given Documented by: Tamsulosin HCl (Tamsulosin Hcl 0.4 Mg Cap) 0.4 mg PO QAM PRN PRN Reason: UNABLE to void Stop: 10/16/20 20:40 Trimethoprim/Sulfamethoxazole (Sulfamethoxazole/Trimethoprim Ds 800/160mg Tab) 1 tab PO Q12 [facility] Stop: 09/23/20 20:59 Last Admin: 09/16/20 21:54 Dose: 1 tab Documented by: ECG Additional Comments: Normal sinus rhythm Left anterior fascicular block Left ventricular hypertrophy with QRS widening Abnormal ECG No previous ECGs available PG Care Time/CCT Total # of Minutes Spent Total Time Spent with Patient: Total time spent is greater than 50% in c oordination of care (as documented) at patient's floor/unit and/or counseling patient: Coding Level of Care Code 59212 Inpt Consult Level 4 Diagnoses Compartment syndrome M79.A22 Compartment syndrome location: lower extremity Compartment syndrome type: non-traumatic Laterality: left Diabetes type 2, uncontrolled E11.65 Dyslipidemia E78.5 Hypertension I10 Hypertension type: essential hypertension Obesity, morbid, BMI 40.0-49.9 E66.01 Graves disease E05.00 MARIA ANTONIA (acute kidney injury) N17.9 Diabetic foot ulcer associated with type 2 diabetes mellitus E11.621; L97.509 (1) Compartment syndrome Compartment syndrome location: lower extremity Compartment syndrome type: non-traumatic Laterality: left Qualified Code(s): M79.A22 - Nontraumatic compartment syndrome of left lower extremity (2) Hypertension Hypertension type: essential hypertension Qualified Code(s): I10 - Essential (primary) hypertension
[2020-09-16] MEDS: oxyCODONE HCL IR 5 MG TAB (IMMEDIATE RELEASE) PO PRN (23:40)
[2020-09-17] MEDS: ceFAZolin 2000MG 2,000 MG/15 ML SYR IV SCH ×2 (01:45→10:18)
[2020-09-17] MEDS ORDERED: INSULIN ASPART 100 UNITS/ML 3 ML PEN SC SCH (02:00)
[2020-09-17] MEDS: LACTATED RINGER'S 1,000 ML IV SCH ×3 (03:42→20:30)
[2020-09-17] MEDS: oxyCODONE HCL IR 5 MG TAB (IMMEDIATE RELEASE) PO PRN ×3 (05:40→20:29)
[2020-09-17] MEDS: ACETAMINOPHEN 500 MG TAB PO SCH ×3 (05:40→23:09)
[2020-09-17 06:03] LABS: Basophils # (auto) 0.04 K/uL (0-0.2); Basophils % (auto) 0.4 %; Eosinophils % (auto) 2.1 %; Hemoglobin 12.8 g/dL (14.0-18.0); Immature Granulocytes # (auto) 0.01 K/uL (0.00-0.02); Immature Granulocytes % (auto) 0.1 %; Lymphocytes # (auto) 1.74 K/uL (1.2-3.4); Lymphocytes % (auto) 18.4 %; Mean Corpuscular Hemoglobin 27.3 pg (25-34); Mean Corpuscular Hgb Conc 33.7 g/dL (32-36); Monocytes # (auto) 0.68 K/uL (0.11-0.59); Monocytes % (auto) 7.2 %; Neutrophils # (auto) 6.77 K/uL (1.4-6.5); Neutrophils % (auto) 71.8 %; Platelet Count 164 K/uL (130-400); RDW Coefficient of Variation 14.4 % (11.5-14.5); RDW Standard Deviation 42.7 fL (36.4-46.3); Red Blood Count 4.69 M/uL (4.7-6.1); White Blood Count 9.44 K/uL (4.8-10.8)
[2020-09-17 06:35] LABS: BUN Creatinine Ratio 15.3 (10-20); Calcium 8.2 mg/dl (8.5-10.1); Creatinine Clr Calc Pharmacy 95.4 ml/min; Est GFR (African American) 66.4 ml/min; Est GFR (Non-African American) 57.3 ml/min; Potassium 4.1 mmol/L (3.5-5.1)
[2020-09-17 07:10] LABS: Albumin Globulin Ratio 0.9 (0.9-2); Bilirubin,Total 0.5 mg/dl (0.2-1); Globulin 3.4 gm/dl (2.5-4.0); Total Protein 6.4 gm/dl (6.4-8.2)
[2020-09-17] MEDS: ATENOLOL 50 MG TABLET PO SCH (07:41)
[2020-09-17] MEDS: MULTIVITAMIN TAB PO SCH (07:41)
[2020-09-17] MEDS: ASPIRIN 325 MG ECTAB PO SCH ×2 (07:41→20:30)
[2020-09-17] MEDS: ROSUVASTATIN CALCIUM 20 MG TAB PO SCH (07:41)
[2020-09-17] MEDS: ASCORBIC ACID 500 MG TAB PO SCH ×2 (07:41→16:47)
[2020-09-17] MEDS: FERROUS GLUCONATE 324 MG TAB PO SCH ×2 (07:41→16:47)
[2020-09-17] MEDS: GABAPENTIN 600 MG TAB PO SCH ×3 (07:42→20:31)
[2020-09-17] MEDS: FENOFIBRATE NANOCRYSTALLIZED 48 MG TABLET PO SCH (07:42)
[2020-09-17] MEDS: DOCUSATE SODIUM 100 MG CAP PO SCH ×2 (07:42→20:30)
[2020-09-17] MEDS: SULFAMETHOXAZOLE/TRIMETHOPRIM DS 800/160MG TAB PO SCH ×2 (07:43→20:31)
[2020-09-17] MEDS: methIMAzole 5 MG TABLET PO SCH (07:43)
[2020-09-17] MEDS: INSULIN ASPART 100 UNITS/ML 3 ML PEN SC SCH ×4 (07:47→20:39)
[2020-09-17] MEDS: INSULIN GLARGINE SOLOSTAR 100 UNITS/ML 3 ML PEN SC SCH ×2 (07:51→20:37)
[2020-09-17 09:09] LABS: Estimated Average Glucose 189 mg/dl; Hemoglobin A1C 8.2 % (4.5-5.6)
[2020-09-17] MEDS: HYDROmorphone INJ 0.5 MG/0.5 ML SYR IV PRN ×4 (09:17→23:09)
--- NOTE | 2020-09-17 11:58 | Pharmacy Report ---
Pharmacy Glycemic Short Note 2 - Date of Service September 17, 2020 - Glycemic Short BSG Results (Last 24 hours): 09/16/20 09/16/20 09/16/20 13:50 19:34 21:32 Glucose 97 POC Glucose 139 H 150 H 09/17/20 09/17/20 09/17/20 01:34 05:37 07:15 Glucose 133 H POC Glucose 161 H 135 H 09/17/20 11:10 Glucose POC Glucose 184 H OUTPATIENT ANTIDIABETIC REGIMEN: * Lantus 110 units HS * Novolog 40 units plus sliding scale? * Trulicity 1.5 mg SQ weekly ASSESSMENT: * Patient admitted post fasciotomy to left lower leg * Home Lantus dose was confirmed by pharmacist with patient last evening. BSGs adequate this morning after a reduced dose of lantus. Will continue a reduced BID dosing regimen (~35% reduction of home dose) and moderate stress novolog scale. Patient is ordered and is tolerating a diet. PLAN FOR INPATIENT GLYCEMIC CONTROL: * Hold outpatient oral diabetes medications * Basal insulin * Lantus 40 units X 1 last evening * Lantus 35 units SQ BID * Bolus insulin * NovoLog per scale ACHS or Q6hrs while NPO * Goal Range: Low 110 mg/dL - High 140 mg/dL * Correction Factor: 15 mg/dL/unit * Nutritional / Prandial insulin per carb ratio of 1 unit per 5 grams CHO consumed PLAN FOR DISCHARGE: * TBD
--- NOTE | 2020-09-17 15:17 | Electrocardiogram Report ---
Test Reason : Blood Pressure : / mmHG Vent. Rate : 090 BPM Atrial Rate : 090 BPM P-R Int : 144 ms QRS Dur : 118 ms QT Int : 376 ms P-R-T Axes : 039 -63 046 degrees QTc Int : 459 ms Poor data quality, interpretation may be adversely affected Normal sinus rhythm Left anterior fascicular block Left ventricular hypertrophy with QRS widening Poor R wave progression, consider anterior NM vs. lead placement vs. LVH Abnormal ECG No previous ECGs available Confirmed by Cezar Neff ([id number]) on 09/17/2020 3:17:13 PM Referred By: REFERRED SELF Confirmed By:Fausto Neff
--- NOTE | 2020-09-17 20:03 | Progress Notes ---
DATE OF SERVICE: 09/17/2020 I evaluated Mr. Tidwell at approximately 7:00 a.m. this morning and then again today at 7:00 p.m. The examinations were identical. He had diminished sensation on the top of the foot as well as somewhat medial, but relatively normal sensation lateral and plantar. His dorsalis pedis and posterior tibial pulses are 1+. Capillary refill is less than 2 seconds throughout the foot. There is no pain with passive movement. His dressings are clean and slightly blood stained, but not dripping. He has 5/5 ankle plantar flexion and inversion. Eversion is 0. EHL is 0. He has at most 3/5 tibialis anterior . The foot is not swollen. Medicine consultation results are reviewed, noted and appreciated. He is today afebrile. His vital signs are stable. He is not on any blood thinners. White count 9, hemoglobin 13, hematocrit 38, platelets 164. His PRP is noted. Total CK is markedly elevated. I would like to return to the operating room tomorrow morning for repeat irrigation and debridement. I would evaluate the muscles at that point. I discussed with Mr. Tidwell that yesterday, I saw unheal thy tissue in the lateral compartment. This could be muscle. If it is , it likely will nee d to be debrided. My plan for tomorrow would be to reevaluate this. If there is a small amount of u nhealthy muscle, I would likely debride this. I would then apply a wound VAC for further management. If there is wholesale muscle necrosis of the compartment, I may do some debridement and apply the w ound VAC. I discussed with him that at that juncture, I may wish to consult with one of my colleague s at [place] and consider transfer of him there for further evaluation and treatment. I discussed wi th him that if the muscle was because of compartment syndrome that it will not return and that h e would have permanent loss of function from whatever muscle is and needs to be removed. At thi s point, it would at least be eversion of the foot due to the loss of the lateral compartment. An in formed consent was obtained after discussion of appropriate treatment options, risks, benefits. N.p. o. after midnight. Job ID: [id number]
[2020-09-17] MEDS: SENNA 8.6 MG TAB PO SCH (20:31)
--- NOTE | 2020-09-17 21:14 | Hospitalist Progress Note ---
Date of Service September 17, 2020 Assessment & Plan (1) Compartment syndrome: Plan: LLE compartment syndrome - etiology uncertain. s/p Surgical Fasciotomy of anterior and lateral compartments. with resulting rhabdomyolysis. cont IV abx, IV fluids, pain control. back to OR tomorrow for debridement of necrotic or devitalized muscle. CPK in am. (2) Rhabdomyolysis: Plan: 2nd to #1. cont copious hydration. repeat CPK am. (3) Diabetes type 2, uncontrolled: Plan: Pharmacy glycemic team managing. (4) Diabetic foot ulcer associated with type 2 diabetes mellitus: Plan: S/p TMA amputation of all toes right foot in June 2020 at [facility] [place] Remains on PO bactrim only. (5) MARIA ANTONIA (acute kidney injury): Plan: Peak Cr 1.5 1.4 today repeat BMP am cont IV fluids (6) Dyslipidemia: Plan: Continue Rosuvastatin 40 mg Daily and fenofibrate (7) Hypertension: Plan: BPs reasonably controlled w/o lisinopril Cont atenolol (8) Obesity, morbid, BMI 40.0-49.9: Plan: BMI 40 (9) Graves disease: Plan: Continue methimazole TSH 04/2020 was wnl Admission and Anticipated Discharge Date Admission Date: September 16, 2020 Subjective patient c/o left lower leg pain - but mildly improved from prior to the hospital stay. eating/drinking. tele overnight wnl. denies dyspnea or chest pain. Review of Systems Review of Systems: gen - denies fatigue CV - no chest pain; no orthopnea pulm - no cough, some wheezes GI - no vomiting Physical Exam Physical Exam: gen- morbidly obese, NAD mouth- MMM neck- no JVD heart- RRR, s1s2, no murmur lungs- wheezes b/l abd- soft NT ND BS+ ext- dressings intact LLE, no edema left foot vasc - DP and pos tib pulses 2+ b/l including left foot; cap refill left foot brisk skin - dressings intact right foot (recent TMA in June 2020 at [place]) Results & Data Results & Data ([facility]) Vital Signs (Past 12 Hours) Vital Signs Temp Pulse Pulse Resp BP Pulse Ox 09/17/20 19:46 36.8 C 83 21 158/71 H 97 09/17/20 15:31 75 09/17/20 15:20 36.6 C 78 15 125/69 97 09/17/20 14:40 82 09/17/20 11:27 82 09/17/20 11:11 36.6 C 76 23 128/70 93 Laboratory Results Laboratory Results - last 24 hr 09/16/20 09/17/20 09/17/20 21:32 01:34 05:37 WBC RBC Hgb Hct MCV MCH MCHC RDW Std Deviation RDW Coeff of Alondra Plt Count MPV Immature Gran % (Auto) Neut % (Auto) Lymph % (Auto) [place] % (Auto) Eos % (Auto) Baso % (Auto) Neut # (Auto) Lymph # (Auto) [place] # (Auto) Eos # (Auto) Baso # (Auto) Immature Gran # (Auto) Sodium Potassium Chloride Carbon Dioxide Anion Gap BUN Creatinine Est Cr Clr Drug Dosing Est GFR ( Amer) Est GFR (Non-Af Amer) BUN/Creatinine Ratio Glucose POC Glucose 150 H 161 H Estimat Average Glucose 189 Hemoglobin A1c 8.2 H Calcium Total Bilirubin AST ALT Alkaline Phosphatase Total Creatine Kinase Total Protein Albumin Globulin Albumin/Globulin Ratio 09/17/20 09/17/20 09/17/20 05:37 05:37 07:15 WBC 9.44 RBC 4.69 L Hgb 12.8 L Hct 38.0 L MCV 81.0 MCH 27.3 MCHC 33.7 RDW Std Deviation 42.7 RDW Coeff of Alondra 14.4 Plt Count 164 MPV 12.0 H Immature Gran % (Auto) 0.1 Neut % (Auto) 71.8 Lymph % (Auto) 18.4 [place] % (Auto) 7.2 Eos % (Auto) 2.1 Baso % (Auto) 0.4 Neut # (Auto) 6.77 H Lymph # (Auto) 1.74 [place] # (Auto) 0.68 H Eos # (Auto) 0.20 Baso # (Auto) 0.04 Immature Gran # (Auto) 0.01 Sodium 133 L Potassium 4.1 Chloride 104 Carbon Dioxide 24 Anion Gap 5.0 BUN 22 H Creatinine 1.41 H Est Cr Clr Drug Dosing 95.4 Est GFR ( Amer) 66.4 Est GFR (Non-Af Amer) 57.3 BUN/Creatinine Ratio 15.3 Glucose 133 H POC Glucose 135 H Estimat Average Glucose Hemoglobin A1c Calcium 8.2 L Total Bilirubin 0.5 AST 273 H ALT 52 Alkaline Phosphatase 48 Total Creatine Kinase 9604 H Total Protein 6.4 D Albumin 3.0 L Globulin 3.4 Albumin/Globulin Ratio 0.9 09/17/20 09/17/20 09/17/20 11:10 16:25 20:35 WBC RBC Hgb Hct MCV MCH MCHC RDW Std Deviation RDW Coeff of Alondra Plt Count MPV Immature Gran % (Auto) Neut % (Auto) Lymph % (Auto) [place] % (Auto) Eos % (Auto) Baso % (Auto) Neut # (Auto) Lymph # (Auto) [place] # (Auto) Eos # (Auto) Baso # (Auto) Immature Gran # (Auto) Sodium Potassium Chloride Carbon Dioxide Anion Gap BUN Creatinine Est Cr Clr Drug Dosing Est GFR ( Amer) Est GFR (Non-Af Amer) BUN/Creatinine Ratio Glucose POC Glucose 184 H 196 H 192 H Estimat Average Glucose Hemoglobin A1c Calcium Total Bilirubin AST ALT Alkaline Phosphatase Total Creatine Kinase Total Protein Albumin Globulin Albumin/Globulin Ratio PG Care Time/CCT Total # of Minutes Spent Total Time Spent with Patient: Total time spent is greater than 50% in coordination of care (as documented) at patient's floor/unit and/or counseling patient: Coding Level of Care Code 15670 Subseq Hosp Care Lvl 2 Diagnoses Compartment syndrome M79.A22 Compartment syndrome location: lower extremity Compartment syndrome type: non-traumatic Laterality: left Diabetes type 2, uncontrolled E11.65 Diabetic foot ulcer associated with type 2 diabetes mellitus E11.621; L97.509 MARIA ANTONIA (acute kidney injury) N17.9 Dyslipidemia E78.5 Hypertension I10 Hypertension type: essential hypertension Obesity, morbid, BMI 40.0-49.9 E66.01 Graves disease E05.00 Rhabdomyolysis M62.82 (1) Compartment syndrome Compartment syndrome location: lower extremity Compartment syndrome type: non-traumatic Laterality: left Qualified Code(s): M79.A22 - Nontraumatic compartment syndrome of left lower extremity (2) Hypertension Hypertension type: essential hypertension Qualified Code(s): I10 - Essential (primary) hypertension
[2020-09-18] MEDS: HYDROmorphone INJ 0.5 MG/0.5 ML SYR IV PRN ×4 (04:31→23:48)
[2020-09-18] MEDS: ACETAMINOPHEN 500 MG TAB PO SCH ×3 (05:35→21:32)
[2020-09-18] MEDS: oxyCODONE HCL IR 5 MG TAB (IMMEDIATE RELEASE) PO PRN ×4 (05:36→21:31)
[2020-09-18 06:45] LABS: Basophils # (auto) 0.03 K/uL (0-0.2); Basophils % (auto) 0.5 %; Eosinophils # (auto) 0.18 K/uL (0-0.5); Eosinophils % (auto) 2.9 %; Hematocrit (blood only) 37.1 % (42-52); Hemoglobin 12.2 g/dL (14.0-18.0); Immature Granulocytes # (auto) 0.01 K/uL (0.00-0.02); Immature Granulocytes % (auto) 0.2 %; Lymphocytes # (auto) 1.53 K/uL (1.2-3.4); Lymphocytes % (auto) 24.4 %; Mean Corpuscular Hemoglobin 26.8 pg (25-34); Mean Corpuscular Hgb Conc 32.9 g/dL (32-36); Mean Corpuscular Volume 81.5 fL (80-100); Mean Platelet Volume 11.9 fL (7.4-10.4); Monocytes # (auto) 0.56 K/uL (0.11-0.59); Monocytes % (auto) 8.9 %; Neutrophils # (auto) 3.96 K/uL (1.4-6.5); Neutrophils % (auto) 63.1 %; Platelet Count 153 K/uL (130-400); RDW Coefficient of Variation 14.2 % (11.5-14.5); RDW Standard Deviation 42.4 fL (36.4-46.3); Red Blood Count 4.55 M/uL (4.7-6.1); White Blood Count 6.27 K/uL (4.8-10.8)
--- NOTE | 2020-09-18 07:09 | Orthopedic Progress Note ---
Date of Service September 18, 2020 Assessment & Plan (1) Compartment syndrome: Plan: Plan is to go to the operating room today. Washout the wound. Evaluate muscle viability. Debride as necessary and apply wound VAC. If not already done will consult wound management for his right leg. Discussed with the patient that it is possible that he has nonviable muscle that needs to be removed and this can be a result in permanent loss of function due to that muscle. (2) Diabetic ulcer of right great toe: (3) Type 2 diabetes mellitus with complications: Admission and Anticipated Discharge Date Admission Date: September 16, 2020 Subjective Resting comfortably in bed. Sleeping. Does not appear to be in any pain. At rest there is 0 out of 10 pain in the left leg compared to 10 out of 10 pain previously. This was the same amount of pain that he was having yesterday. Physical Exam Physical Exam: Dorsalis pedis is 1+. There is diminished sensation on the top of the foot but otherwise normal sensation throughout the remainder of the foot. He has 5 out of 5 inversion and plantar flexion strength. There is a trace EHL function. He can activate it so perhaps 2 out of 5. There is 3 out of 5 but incomplete ankle dorsiflexion through tibialis anterior. There is no active ankle eversion. No pain with passive movement Results & Data ([facility]) Vital Signs (Past 12 Hours) Vital Signs Temp Pulse Pulse Resp BP Pulse Ox 09/18/20 03:16 37.0 C 86 14 147/75 H 97 09/18/20 00:00 78 09/17/20 23:06 36.7 C 77 13 157/78 H 98 09/17/20 19:46 36.8 C 83 21 158/71 H 97 Laboratory Results 09/18/20 09/18/20 09/17/20 Range/Units 06:08 06:08 20:35 WBC 6.27 (4.8-10.8) K/uL RBC 4.55 L (4.7-6.1) M/uL Hgb 12.2 L (14.0-18.0) g/dL Hct 37.1 L (42-52) % MCV 81.5 (80-100) fL MCH 26.8 (25-34) pg MCHC 32.9 (32-36) g/dL RDW Std Deviation 42.4 (36.4-46.3) fL RDW Coeff of Alondra 14.2 (11.5-14.5) % Plt Count 153 (130-400) K/uL MPV 11.9 H (7.4-10.4) fL Immature Gran % (Auto) 0.2 % Neut % (Auto) 63.1 % Lymph % (Auto) 24.4 % [place] % (Auto) 8.9 % Eos % (Auto) 2.9 % Baso % (Auto) 0.5 % Neut # (Auto) 3.96 (1.4-6.5) K/uL Lymph # (Auto) 1.53 (1.2-3.4) K/uL [place] # (Auto) 0.56 (0.11-0.59) K/uL Eos # (Auto) 0.18 (0-0.5) K/uL Baso # (Auto) 0.03 (0-0.2) K/uL Immature Gran # (Auto) 0.01 (0.00-0.02) K/uL Sodium Pending Potassium Pending Chloride Pending Carbon Dioxide Pending Anion Gap Pending BUN Pending Creatinine Pending Est Cr Clr Drug Dosing Pending Est GFR ( Amer) Pending Est GFR (Non-Af Amer) Pending BUN/Creatinine Ratio Pending Glucose Pending POC Glucose 192 H (70-99) mg/dl Estimat Average Glucose mg/dl Hemoglobin A1c (4.5-5.6) % Calcium Pending Magnesium Pending Total Bilirubin Pending (0.2-1) mg/dl AST Pending ALT Pending Alkaline Phosphatase Pending (45-117) U/L Total Creatine Kinase Pending (39-308) U/L Total Protein Pending (6.4-8.2) gm/dl Albumin Pending Globulin Pending (2.5-4.0) gm/dl Albumin/Globulin Ratio Pending (0.9-2) 09/17/20 09/17/20 09/17/20 Range/Units 16:25 11:10 07:15 WBC (4.8-10.8) K/uL RBC (4.7-6.1) M/uL Hgb (14.0-18.0) g/dL Hct (42-52) % MCV (80-100) fL MCH (25-34) pg MCHC (32-36) g/dL RDW Std Deviation (36.4-46.3) fL RDW Coeff of Alondra (11.5-14.5) % Plt Count (130-400) K/uL MPV (7.4-10.4) fL Immature Gran % (Auto) % Neut % (Auto) % Lymph % (Auto) % [place] % (Auto) % Eos % (Auto) % Baso % (Auto) % Neut # (Auto) (1.4-6.5) K/uL Lymph # (Auto) (1.2-3.4) K/uL [place] # (Auto) (0.11-0.59) K/uL Eos # (Auto) (0-0.5) K/uL Baso # (Auto) (0-0.2) K/uL Immature Gran # (Auto) (0.00-0.02) K/uL Sodium Potassium Chloride Carbon Dioxide Anion Gap BUN Creatinine Est Cr Clr Drug Dosing Est GFR ( Amer) Est GFR (Non-Af Amer) BUN/Creatinine Ratio Glucose POC Glucose 196 H 184 H 135 H (70-99) mg/dl Estimat Average Glucose mg/dl Hemoglobin A1c (4.5-5.6) % Calcium Magnesium Total Bilirubin (0.2-1) mg/dl AST ALT Alkaline Phosphatase (45-117) U/L Total Creatine Kinase (39-308) U/L Total Protein (6.4-8.2) gm/dl Albumin Globulin (2.5-4.0) gm/dl Albumin/Globulin Ratio (0.9-2) 09/17/20 09/17/20 Range/Units 05:37 05:37 WBC (4.8-10.8) K/uL RBC (4.7-6.1) M/uL Hgb (14.0-18.0) g/dL Hct (42-52) % MCV (80-100) fL MCH (25-34) pg MCHC (32-36) g/dL RDW Std Deviation (36.4-46.3) fL RDW Coeff of Alondra (11.5-14.5) % Plt Count (130-400) K/uL MPV (7.4-10.4) fL Immature Gran % (Auto) % Neut % (Auto) % Lymph % (Auto) % [place] % (Auto) % Eos % (Auto) % Baso % (Auto) % Neut # (Auto) (1.4-6.5) K/uL Lymph # (Auto) (1.2-3.4) K/uL [place] # (Auto) (0.11-0.59) K/uL Eos # (Auto) (0-0.5) K/uL Baso # (Auto) (0-0.2) K/uL Immature Gran # (Auto) (0.00-0.02) K/uL Sodium Potassium Chloride Carbon Dioxide Anion Gap BUN Creatinine Est Cr Clr Drug Dosing Est GFR ( Amer) Est GFR (Non-Af Amer) BUN/Creatinine Ratio Glucose POC Glucose (70-99) mg/dl Estimat Average Glucose 189 mg/dl Hemoglobin A1c 8.2 H (4.5-5.6) % Calcium Magnesium Total Bilirubin 0.5 (0.2-1) mg/dl AST ALT Alkaline Phosphatase 48 (45-117) U/L Total Creatine Kinase 9604 H (39-308) U/L Total Protein 6.4 D (6.4-8.2) gm/dl Albumin Globulin 3.4 (2.5-4.0) gm/dl Albumin/Globulin Ratio 0.9 (0.9-2) (1) Compartment syndrome Compartment syndrome location: lower extremity Compartment syndrome type: non-traumatic Laterality: left Qualified Code(s): M79.A22 - Nontraumatic compartment syndrome of left lower extremity
[2020-09-18 07:28] LABS: Albumin Level 2.8 gm/dl (3.4-5.0); BUN Creatinine Ratio 12.9 (10-20); Calcium 8.6 mg/dl (8.5-10.1); Creatinine Clr Calc Pharmacy 104.2 ml/min; Est GFR (African American) 73.9 ml/min; Est GFR (Non-African American) 63.8 ml/min; Magnesium 2.2 mg/dl (1.8-2.4); Potassium 4.6 mmol/L (3.5-5.1)
[2020-09-18 07:44] LABS: Albumin Globulin Ratio 0.8 (0.9-2); Bilirubin,Total 0.5 mg/dl (0.2-1); Globulin 3.7 gm/dl (2.5-4.0); Total Protein 6.5 gm/dl (6.4-8.2)
[2020-09-18] MEDS: INSULIN ASPART 100 UNITS/ML 3 ML PEN SC SCH ×4 (07:45→21:45)
[2020-09-18] MEDS ORDERED: MIDAZOLAM HCL 1 MG/ML 2ML VIAL ONE (07:46)
[2020-09-18] MEDS ORDERED: fentaNYL citrate 100 MCG/2 ML VIAL ONE ×2 (07:46→09:57)
[2020-09-18] MEDS ORDERED: LIDOCAINE 2% 2 ML VIAL/AMP(20MG/ML) INFIL ONE (07:46)
[2020-09-18] MEDS ORDERED: DEXAMETHASONE SOD INJ 4 MG/ML VIAL ONE (07:46)
[2020-09-18] MEDS ORDERED: PROPOFOL IV EMULSION 10 MG/ML 20 ML VIAL IV ONE (07:46)
[2020-09-18] MEDS ORDERED: ONDANSETRON INJ 2 MG/ML 2 ML VIAL ONE (07:46)
[2020-09-18] MEDS ORDERED: HYDROmorphone INJ 1 MG/ML SYRINGE IV PRN (08:17)
[2020-09-18] MEDS ORDERED: fentaNYL citrate 100 MCG/2 ML VIAL IV PRN (08:17)
[2020-09-18] MEDS ORDERED: ONDANSETRON INJ 2 MG/ML 2 ML VIAL IV PRN (08:17)
--- NOTE | 2020-09-18 08:22 | Anesthesiology Consultation ---
Date of Service September 18, 2020 Assessment & Plan (1) Encounter for pre-operative examination: Chart Review Chart Review: Acceptable Risk for Surgery and Patient NOT seen in Pre Admission Testing Consults Requested none History Surgery Operation Date: 09/16/20 10:20 Proposed Procedures p Left Leg Anterior and Lateral Compartment Release/Fasciotomy - Maykel Hussein MD Operation Date: 09/18/20 08:35 Proposed Procedures p Left Leg Incision and Drainage with Wound Vac Application - Maykel Hussein MD Height/Weight Height: 6 ft 3 in Weight: 145.2 kg Allergies Allergy/AdvReac Type Severity Reaction Status Date / Time No Known Allergies Allergy Verified 09/16/20 14:45 Medications Home Medications Medication Instructions Recorded Confirmed Last Taken atenolol 50 mg tablet 50 mg PO DAILY 05/18/19 09/16/20 09/16/20 methimazole 5 mg tablet 10 mg PO DAILY #120 tab 12/18/19 09/16/20 09/16/20 blood sugar diagnostic (OneTouch #300 ea 06/05/20 06/10/20 Unknown Ultra Blue Test Strip) fenofibrate 54 mg tablet 54 mg PO DAILY #90 tab 06/05/20 09/16/20 09/16/20 gabapentin 600 mg tablet 600 mg PO TID 90 Days #270 tab 06/05/20 09/16/20 09/16/20 lancets 30 gauge (OneTouch Delica #300 ea 06/05/20 06/10/20 Unknown Lancets) lisinopril 40 mg tablet 40 mg PO DAILY #90 tab 06/05/20 09/16/20 09/16/20 pen needle, diabetic 32 gauge x #400 ea 06/05/20 06/10/20 Unknown " (BD Ultra-Fine Ebonie Pen Needle) rosuvastatin 40 mg tablet 40 mg PO DAILY #90 tab 06/05/20 09/16/20 09/16/20 dulaglutide 1.5 mg/0.5 mL 1.5 mg SUBCUT TU 06/21/20 09/16/20 09/10/20 subcutaneous pen injector (Trulicity) insulin aspart U-100 100 unit/mL 40 unit SQ DAILY 06/21/20 09/16/20 09/16/20 (3 mL) subcutaneous pen (Novolog 40 units Flexpen U-100 Insulin aspart) insulin glargine 100 unit/mL (3 110 unit SQ HS 06/21/20 09/16/20 09/15/20 mL) subcutaneous pen (Lantus Solostar U-100 Insulin) meloxicam 15 mg tablet 15 mg PO DAILY 06/21/20 09/16/20 09/16/20 cholecalciferol (vitamin D3) 125 125 mcg PO DAILY 09/16/20 09/16/20 09/16/20 mcg (5,000 unit) capsule ciprofloxacin HCl 500 mg tablet 500 mg PO Q12H 09/16/20 09/16/20 09/16/20 sulfamethoxazole 800 1 tab PO Q12 09/16/20 09/16/20 09/16/20 mg-trimethoprim 160 mg tablet Active Medications Generic Name Dose Route Start Last Admin Trade Name Freq PRN Reason Stop Dose Admin Acetaminophen 1,000 mg 09/16/20 22:00 09/18/20 05:35 Acetaminophen 500 Mg Tab PO 10/16/20 21:59 1,000 mg Q8 THOMAS Administration Ascorbic Acid 500 mg 09/17/20 08:00 09/17/20 16:47 Ascorbic Acid 500 Mg Tab PO 10/17/20 07:59 500 mg BIDM THOMAS Administration Aspirin 325 mg 09/17/20 09:00 09/17/20 20:30 Aspirin 325 Mg Ectab PO 10/17/20 08:59 325 mg BID THOMAS Administration Atenolol 50 mg 09/17/20 09:00 09/17/20 07:41 Atenolol 50 Mg Tablet PO 10/17/20 08:59 50 mg DAILY THOMAS Administration Docusate Sodium 100 mg 09/16/20 21:00 09/17/20 20:30 Docusate Sodium 100 Mg Cap PO 10/16/20 20:59 Not Given BID THOMAS Fenofibrate 48 mg 09/17/20 09:00 09/17/20 07:42 Fenofibrate Nanocrystallized 48 Mg Tablet PO 10/17/20 08:59 48 mg DAILY THOMAS Administration Ferrous Gluconate 324 mg 09/17/20 08:00 09/17/20 16:47 Ferrous Gluconate 324 Mg Tab PO 10/17/20 07:59 324 mg BIDM THOMAS Administration Gabapentin 600 mg 09/16/20 21:00 09/17/20 20:31 Gabapentin 600 Mg Tab PO 10/16/20 20:59 600 mg TID THOMAS Administration Hydromorphone HCl 0.5 mg 09/16/20 20:41 09/18/20 04:31 Hydromorphone Inj 0.5 Mg/0.5 Ml Syr IV 09/30/20 20:40 0.5 mg Q2H PRN Administration Pain or Pre PT Lactated Ringer's 1,000 mls @ 75 mls/hr 09/16/20 21:45 09/17/20 20:31 Lr IV 10/16/20 21:44 75 mls/hr .[id number] THOMAS Infusion Insulin Aspart 0 units 09/16/20 21:00 09/18/20 07:45 Insulin Aspart 100 Units/Ml 3 Ml Pen SC 10/16/20 20:59 Not Given ACHS THOMAS Insulin Glargine 35 units 09/17/20 09:00 09/17/20 20:37 Insulin Glargine Solostar 100 Units/Ml 3 Ml Pen SC 10/17/20 08:59 35 units BID THOMAS Administration Methimazole 10 mg 09/17/20 09:00 09/17/20 07:43 Methimazole 5 Mg Tablet PO 10/17/20 08:59 10 mg DAILY THOMAS Administration Multivitamins 1 tab 09/17/20 09:00 09/17/20 07:41 Multivitamin Tab PO 10/17/20 08:59 1 tab QAM THOMAS Administration Oxycodone HCl 5 - 10 mg 09/16/20 20:41 09/18/20 05:36 Oxycodone Hcl Ir 5 Mg Tab (Immediate Release) PO 09/30/20 20:40 10 mg Q4H PRN Administration Pain or Pre PT Rosuvastatin Calcium 40 mg 09/17/20 09:00 09/17/20 07:41 Rosuvastatin Calcium 20 Mg Tab PO 10/17/20 08:59 40 mg DAILY THOMAS Administration Sennosides 17.2 mg 09/16/20 21:00 09/17/20 20:31 Senna 8.6 Mg Tab PO 10/16/20 20:59 Not Given HS THOMAS Trimethoprim/Sulfamethoxazole 1 tab 09/16/20 21:00 09/17/20 20:31 Sulfamethoxazole/Trimethoprim Ds 800/160mg Tab PO 09/23/20 20:59 1 tab Q12 THOMAS Administration NPO Date Last Intake of Fluids: 09/18/20 Time Last Intake of Fluids: 00:00 Last Intake of Fluids Comment: sips of water with pills Date Last Intake of Solids: 09/17/20 Time Last Intake of Solids: 22:00 Past Medical History Medical History Callus Diabetes type 2, uncontrolled Diabetic foot ulcer associated with type 2 diabetes mellitus Diabetic peripheral neuropathy associated with type 2 diabetes mellitus Dyslipidemia Foot deformity Graves disease Hypertension Hyperthyroidism Smoking Status post partial amputation of foot Exercise / Class Metabolic Activity III < 4 Walking/Shop/Light housework Past Family History Family History Mother Diabetes Past Surgical History Surgical History H/O foot surgery Amputation- right toes Past Anesthesia History No Hx of Anesthesia Complications and No Family Hx of Anesthesia Complications History of PONV No Hx of PONV and No Hx of Motion Sickness Social History Smoking Status: Current every day smoker tobacco type: cigarettes Smoking cigarettes per day: 20 Hx Alcohol Use: No Hx Substance Use: No Physical Exam Vital Signs Last Vital Signs Temp 36.6 C 09/18/20 07:51 Pulse 83 09/18/20 07:51 Resp 18 09/18/20 07:51 BP 154/80 H 09/18/20 07:51 Pulse Ox 96 09/18/20 07:51 Testing Laboratory Results 09/18/20 06:08 09/18/20 06:08 Hemoglobin A1c 8.2 % (4.5-5.6) H 09/17/20 05:37 09/18/20 09/18/20 09/17/20 07:17 07:15 20:35 POC Glucose 154 H 145 H 192 H
[2020-09-18] MEDS ORDERED: INSULIN GLARGINE SOLOSTAR 100 UNITS/ML 3 ML PEN SQ ONE (09:00)
[2020-09-18] MEDS ORDERED: LIDOCAINE 1% LOCAL 20 ML VIAL ONE (09:06)
[2020-09-18] MEDS ORDERED: BUPIVACAINE 0.5 % 5 MG/1 ML MPF 30ML VIAL ONE (09:06)
--- NOTE | 2020-09-18 10:17 | Operative Report ---
Post Operative Report Pre & Post Diagnosis Operation Date: 09/16/20 10:20 Pre-Op Diagnosis: Left leg compartment syndrome Post-Op Diagnosis: Left leg compartment syndrome Operation Date: 09/18/20 08:35 Pre-Op Diagnosis: Compartment syndrome, left lower extremity Post-Op Diagnosis: Compartment syndrome, left lower extremity I identified the patient and participated in the time-out.: Yes Procedure Operation Date: 09/16/20 10:20 Actual Procedures p Left Leg Anterior and Lateral Compartment Fasciotomy(Left) - Maykel Hussein MD Operation Date: 09/18/20 08:35 Actual Procedures p Left Leg Incision and Drainage, Irrigation, with Wound Vac Application(Left) - Maykel Hussein MD Surgeon Maykel Hussein MD Bias Binding Cutter Skip barraza, fellow Estimated Blood Loss 5 Findings Consistent with Post-Op Diagnosis Normal-appearing contractile and pressurized muscle in the anterior and posterior compartment. The lateral compartment musculature was enlarged firm. It appeared more healthy than it did previously. There were some areas of normal-appearing muscle intermixed with darker areas where there it was ecchymosis within the muscle and darker colored muscle. The lateral compartment muscle was noncontractile but the anterior and compartment muscle and the soleus were contractile. Specimens Resected small portions of necrotic appearing lateral compartment muscle both proximal and distal. Total volume of about 3 cc. Drains Wound VAC Anesthesia Type General Complications none Disposition Accompanied Patient To Recovery: No Disposition: Recovery Room Indications Patient is to 2 days status post anterior and lateral compartment fasciotomies for apparent idiopathic acute compartment syndrome of what is believed to be only involving the lateral compartment. There was questionable muscle viability of the lateral compartment previously. He is taken back to the OR at this time for irrigation debridement of any unhealthy muscle and application of wound VAC. Description of Procedure Informed consent obtained. Patient identified. He identified the operative site as the left leg. I marked with my initials. A preoperative surgical timeout was performed. A preop dose of IV antibiotics was given. He was taken to the operating room and positioned supine on the operating room table. The anesthetic was administered. The dressing on the left leg was removed. The left leg was prescrubbed with Betadine and then prepped with Betadine paint. There was a lateral wound about 10 cm wide and 20 cm long. Minimal bloody drainage. No purulence. DVT prophylaxis with early patient mobility. We will start some Lovenox postoperatively. Bump under the left hip. No tourniquet. Finger dissection was utilized to open the fascial planes again. The anterior compartment was evaluated. The muscle was not bulging out of the fascia. The muscle was pink healthy and normal in appearance, salmon-colored. It was contractile throughout. The posterior compartment was evaluated again. This was done through the lateral compartment. The fascia was opened for the soleus along the length of the surgical incision and this muscle was pink healthy, salmon covered and contractile throughout. The lateral compartment muscle was enlarged it had a more normal appearance and the vast majority of its area. There were areas scattered throughout especially proximally where there appeared to be some bruising consistent with old hemorrhage within the muscle. These areas were debrided along the superficial lateral and distal portion of the muscle. A total volume of about 3 to 5 cc was debrided. Care was taken to protect and preserve any nerves which were not encountered. I did make a slit in the fascia anteriorly to further release any tightness of the lateral compartment fascia. The lateral compartment muscle was not contractile with Bovie electrocautery. We did observe spontaneous microcapillary bleeding. Also after the debridement of the dark-colored muscle areas underneath this showed bright red capillary bleeding and in fact distally required some electrocautery. Irrigation with 3 L of pulse lavage was performed. Meticulous hemostasis. I then applied a wound VAC followed by a posterior splint with the ankle in neutral position. The wrap was applied loosely. Patient awake from anesthesia without difficulty taken to recovery in stable condition. There were no complications. Counts were correct and blood loss was estimated to be 5 cc. The specimen was sent for pathology to determine viability. I will contact the family. Plan at this point is to do DVT prophylaxis. Continue wound VAC and have the nurse change this on the floor on Wednesday. I attest to the content of the Intraoperative Record and any orders documented therein. Any exceptions are noted below.
--- NOTE | 2020-09-18 10:29 | Operative Report ---
Post Operative Report Pre & Post Diagnosis Operation Date: 09/16/20 10:20 Pre-Op Diagnosis: Left leg compartment syndrome Post-Op Diagnosis: Left leg compartment syndrome Operation Date: 09/18/20 08:35 Pre-Op Diagnosis: Compartment syndrome, left lower extremity Post-Op Diagnosis: Compartment syndrome, left lower extremity I identified the patient and participated in the time-out.: Yes Procedure Operation Date: 09/16/20 10:20 Actual Procedures p Left Leg Anterior and Lateral Compartment Fasciotomy(Left) - Maykel Hussein MD Operation Date: 09/18/20 08:35 Actual Procedures p Left Leg Incision and Drainage, Irrigation, with Wound Vac Application(Left) - Maykel Hussein MD Surgeon Maykel Hussein MD Antique Dealer Holly Goldberg, fellow Estimated Blood Loss 5 Findings Consistent with Post-Op Diagnosis see Dr. Hussein note Specimens see Dr. Hussein note Description of Procedure see Dr. Hussein note I attest to the content of the Intraoperative Record and any orders documented therein. Any exceptions are noted below. Supervising Physician Co-Signing Physician Notes Dr. Hussein
--- NOTE | 2020-09-18 13:05 | Anesthesiology Progress Note ---
Date of Service September 18, 2020 Anesthesia Post Procedure Vital Signs Vital Signs: Temp Pulse Pulse Pulse Resp BP BP 09/18/20 11:45 76 20 130/75 09/18/20 11:15 36.5 C 87 20 137/78 09/18/20 11:00 36.4 C L 72 19 124/65 09/18/20 10:50 77 10 L 133/79 09/18/20 10:40 72 13 115/68 09/18/20 10:30 80 16 145/76 H 09/18/20 10:23 36.4 C L 77 17 146/70 H 09/18/20 07:51 36.6 C 83 18 154/80 H 09/18/20 07:26 36.6 C 76 13 136/75 09/18/20 07:15 73 09/18/20 03:16 37.0 C 86 14 147/75 H 09/18/20 00:00 78 09/17/20 23:06 36.7 C 77 13 157/78 H 09/17/20 19:46 36.8 C 83 21 158/71 H 09/17/20 15:31 75 09/17/20 15:20 36.6 C 78 15 125/69 09/17/20 14:40 82 Pulse Ox 09/18/20 11:45 94 09/18/20 11:15 94 09/18/20 11:00 95 09/18/20 10:50 96 09/18/20 10:40 100 09/18/20 10:30 100 09/18/20 10:23 99 09/18/20 07:51 96 09/18/20 07:26 95 09/18/20 07:15 09/18/20 03:16 97 09/18/20 00:00 09/17/20 23:06 98 09/17/20 19:46 97 09/17/20 15:31 09/17/20 15:20 97 09/17/20 14:40 Pain Intensity Left Calf: Pain Intensity: 10 Transfer of Care Handoff Completed per policy Notes Mental Status: alert / awake / arousable and participated in evaluation Patient Amnestic to Procedure: Yes Nausea / Vomiting: adequately controlled Pain: adequately controlled Airway Patency, RR, SpO2: stable & adequate BP & HR: stable & adequate Hydration State: stable & adequate Anesthetic Complications: no major complications apparent and Pt Satisfied with anesthetic care
[2020-09-18] MEDS: GABAPENTIN 600 MG TAB PO SCH ×3 (13:12→20:12)
[2020-09-18] MEDS: MULTIVITAMIN TAB PO SCH (13:17)
[2020-09-18] MEDS: ATENOLOL 50 MG TABLET PO SCH (13:17)
[2020-09-18] MEDS: ROSUVASTATIN CALCIUM 20 MG TAB PO SCH (13:17)
[2020-09-18] MEDS: ASPIRIN 325 MG ECTAB PO SCH ×2 (13:17→21:32)
[2020-09-18] MEDS: ASCORBIC ACID 500 MG TAB PO SCH ×2 (13:17→20:11)
[2020-09-18] MEDS: FERROUS GLUCONATE 324 MG TAB PO SCH ×2 (13:17→20:10)
[2020-09-18] MEDS: methIMAzole 5 MG TABLET PO SCH (13:18)
[2020-09-18] MEDS: DOCUSATE SODIUM 100 MG CAP PO SCH ×2 (13:18→20:09)
[2020-09-18] MEDS: SULFAMETHOXAZOLE/TRIMETHOPRIM DS 800/160MG TAB PO SCH ×2 (13:18→21:32)
[2020-09-18] MEDS: FENOFIBRATE NANOCRYSTALLIZED 48 MG TABLET PO SCH (13:19)
[2020-09-18] MEDS: LACTATED RINGER'S 1,000 ML IV SCH (13:22)
[2020-09-18] MEDS: CIPROFLOXACIN 500 MG TAB PO SCH ×2 (14:17→20:12)
--- NOTE | 2020-09-18 14:28 | Pharmacy Report ---
Pharmacy Glycemic Short Note 2 - Date of Service September 18, 2020 - Glycemic Short BSG Results (Last 24 hours): 09/17/20 09/17/20 09/18/20 16:25 20:35 06:08 Glucose 152 H POC Glucose 196 H 192 H 09/18/20 09/18/20 09/18/20 07:15 07:17 10:25 Glucose POC Glucose 145 H 154 H 173 H OUTPATIENT ANTIDIABETIC REGIMEN: * Lantus 110 units HS * Novolog 40 units plus sliding scale? * Trulicity 1.5 mg SQ weekly ASSESSMENT: 09/18: * Palomo received 114 units of SQ insulin yesterday * 70 units of basal * 44 units of bolus * BSGs ranged from 133 - 196 mg/dL * He went to the OR today for L leg I&D with wound vac placement * Fasting BSG of 145 mg/dL this morning which is slightly elevated. Morning Lantus dose was decreased for NPO status, however dose was not administered until after procedure (~1400) * Post prandial BSGs were elevated yesterday, therefore novolog parameters were tightened 09/17: * Patient admitted post fasciotomy to left lower leg * Home Lantus dose was confirmed by pharmacist with patient last evening. BSGs adequate this morning after a reduced dose of lantus. Will continue a reduced BID dosing regimen (~35% reduction of home dose) and moderate stress novolog scale. Patient is ordered and is tolerating a diet. PLAN FOR INPATIENT GLYCEMIC CONTROL: * Hold outpatient oral diabetes medications * Basal insulin * Lantus 25 units SQ this morning, then resume 35 units SQ BID * Bolus insulin * NovoLog per scale ACHS or Q6hrs while NPO * Goal Range: Low 110 mg/dL - High 140 mg/dL * Correction Factor: 12 mg/dL/unit * Nutritional / Prandial insulin per carb ratio of 1 unit per 4 grams CHO consumed PLAN FOR DISCHARGE: * TBD
--- NOTE | 2020-09-18 19:06 | Progress Notes ---
DATE OF SERVICE: 09/18/2020 Resting comfortably after surgery. No changes noted. I discussed with him the findings of the surge ry and results of what looks like nonviable muscle in the lateral compartment. I have spoken to Dr. Juan Mckay at [facility]. This is something that they deal with more commonly at the [facility]. I am concerned about the viability of the muscle and the need for further treatments in cluding debridement, wound closure, function, etc. Dr. Mckay has agreed to accept the patient in [facility]. I have discussed this with Mr. Tidwell and he is in agreement. The transfer will be initiated in the morning. Otherwise, we will continue his present care. Job ID: [id number]
[2020-09-18] MEDS: SENNA 8.6 MG TAB PO SCH (20:10)
[2020-09-18] MEDS: INSULIN GLARGINE SOLOSTAR 100 UNITS/ML 3 ML PEN SC SCH (21:50)
--- NOTE | 2020-09-18 22:27 | Hospitalist Progress Note ---
Date of Service September 18, 2020 Assessment & Plan (1) Compartment syndrome: Plan: LLE compartment syndrome - etiology uncertain. s/p Surgical Fasciotomy of anterior and lateral compartments - POD #2. s/p Left Leg Incision and Drainage, Irrigation, with Wound Vac Application today. Compartment syndrome with resulting rhabdomyolysis. CPK improved today. cont IV fluids, pain control. corresponded with Dr Hussein - patient potentially a transfer to [facility] for debri michelle of devitalized/necrotic tissue. cipro/bactrim is primarily for right foot wound. (2) Rhabdomyolysis: Plan: 2nd to #1. cont copious hydration. improving. repeat CPK in am. (3) Diabetes type 2, uncontrolled: Plan: Pharmacy glycemic team managing. Appreciate their assistance. (4) Diabetic foot ulcer associated with type 2 diabetes mellitus: Plan: S/p TMA amputation of all toes right foot in June 2020 at [facility]. Remains on PO cipro/bactrim. (5) MARIA ANTONIA (acute kidney injury): Plan: Peak Cr 1.5 1.2 today repeat BMP am cont IV fluids (6) Dyslipidemia: Plan: Continue Rosuvastatin 40 mg Daily (cautiously in light of elevated CPK) and fenofibrate (7) Hypertension: Plan: Resume lisinopril Cont atenolol (8) Obesity, morbid, BMI 40.0-49.9: Plan: BMI 40 (9) Graves disease: Plan: Continue methimazole TSH 04/2020 was wnl Admission and Anticipated Discharge Date Admission Date: September 16, 2020 Subjective saw patient post-op on the ortho floor his left leg pain is overall much improved otherwise denies new complaints he is aware that he might be transferred to [facility] for debridement of devitalized tissue Review of Systems Review of Systems: gen - no fevers or chills pulm - no dyspnea GI - no abd pain CV - no chest pain Physical Exam Physical Exam: gen- morbidly obese, NAD mouth- MMM neck- no JVD heart- RRR, s1s2, no murmur lungs- wheezes b/l - mild and improved from yesterday abd- soft NT ND BS+ ext- minimal edema left foot vasc - DP and pos tib pulses 2+ b/l including left foot; cap refill remains brisk left foot skin - dressings intact right foot (recent TMA in June 2020 at [place]); dressings intact left leg and left ankle/foot Results & Data Results & Data ([facility]) Vital Signs (Past 12 Hours) Vital Signs Temp Pulse Pulse Resp BP BP Pulse Ox 09/18/20 21:53 36.8 C 81 18 146/80 H 97 09/18/20 19:24 37.1 C 74 16 108/67 92 09/18/20 16:10 78 18 135/70 97 09/18/20 14:59 36.7 C 75 16 139/84 95 09/18/20 14:05 78 18 124/72 95 09/18/20 13:35 75 20 144/78 H 96 09/18/20 13:00 36.8 C 86 18 144/80 H 95 09/18/20 11:45 76 20 130/75 94 09/18/20 11:15 36.5 C 87 20 137/78 94 09/18/20 11:00 36.4 C L 72 19 124/65 95 09/18/20 10:50 77 10 L 133/79 96 09/18/20 10:40 72 13 115/68 100 09/18/20 10:30 80 16 145/76 H 100 Laboratory Results Laboratory Results - last 24 hr 09/18/20 09/18/20 09/18/20 06:08 06:08 07:15 WBC 6.27 RBC 4.55 L Hgb 12.2 L Hct 37.1 L MCV 81.5 MCH 26.8 MCHC 32.9 RDW Std Deviation 42.4 RDW Coeff of Alondra 14.2 Plt Count 153 MPV 11.9 H Immature Gran % (Auto) 0.2 Neut % (Auto) 63.1 Lymph % (Auto) 24.4 [place] % (Auto) 8.9 Eos % (Auto) 2.9 Baso % (Auto) 0.5 Neut # (Auto) 3.96 Lymph # (Auto) 1.53 [place] # (Auto) 0.56 Eos # (Auto) 0.18 Baso # (Auto) 0.03 Immature Gran # (Auto) 0.01 Sodium 135 L Potassium 4.6 Chloride 105 Carbon Dioxide 27 Anion Gap 3.0 BUN 17 Creatinine 1.29 Est Cr Clr Drug Dosing 104.2 Est GFR ( Amer) 73.9 Est GFR (Non-Af Amer) 63.8 BUN/Creatinine Ratio 12.9 Glucose 152 H POC Glucose 145 H Calcium 8.6 Magnesium 2.2 Total Bilirubin 0.5 AST 151 H ALT 38 Alkaline Phosphatase 46 Total Creatine Kinase 5561 H Total Protein 6.5 Albumin 2.8 L Globulin 3.7 Albumin/Globulin Ratio 0.8 L 09/18/20 09/18/20 09/18/20 07:17 10:25 17:36 WBC RBC Hgb Hct MCV MCH MCHC RDW Std Deviation RDW Coeff of Alondra Plt Count MPV Immature Gran % (Auto) Neut % (Auto) Lymph % (Auto) [place] % (Auto) Eos % (Auto) Baso % (Auto) Neut # (Auto) Lymph # (Auto) [place] # (Auto) Eos # (Auto) Baso # (Auto) Immature Gran # (Auto) Sodium Potassium Chloride Carbon Dioxide Anion Gap BUN Creatinine Est Cr Clr Drug Dosing Est GFR ( Amer) Est GFR (Non-Af Amer) BUN/Creatinine Ratio Glucose POC Glucose 154 H 173 H 169 H Calcium Magnesium Total Bilirubin AST ALT Alkaline Phosphatase Total Creatine Kinase Total Protein Albumin Globulin Albumin/Globulin Ratio 09/18/20 21:08 WBC RBC Hgb Hct MCV MCH MCHC RDW Std Deviation RDW Coeff of Alondra Plt Count MPV Immature Gran % (Auto) Neut % (Auto) Lymph % (Auto) [place] % (Auto) Eos % (Auto) Baso % (Auto) Neut # (Auto) Lymph # (Auto) [place] # (Auto) Eos # (Auto) Baso # (Auto) Immature Gran # (Auto) Sodium Potassium Chloride Carbon Dioxide Anion Gap BUN Creatinine Est Cr Clr Drug Dosing Est GFR ( Amer) Est GFR (Non-Af Amer) BUN/Creatinine Ratio Glucose POC Glucose 130 H Calcium Magnesium Total Bilirubin AST ALT Alkaline Phosphatase Total Creatine Kinase Total Protein Albumin Globulin Albumin/Globulin Ratio PG Care Time/CCT Total # of Minutes Spent Total Time Spent with Patient: Total time spent is greater than 50% in coordination of care (as documented) at patient's floor/unit and/or counseling patient: Coding Level of Care Code 77523 Subseq Hosp Care Lvl 2 Diagnoses Compartment syndrome M79.A22 Compartment syndrome location: lower extremity Compartment syndrome type: non-traumatic Laterality: left Rhabdomyolysis M62.82 Diabetes type 2, uncontrolled E11.65 Diabetic foot ulcer associated with type 2 diabetes mellitus E11.621; L97.509 MARIA ANTONIA (acute kidney injury) N17.9 Dyslipidemia E78.5 Hypertension I10 Hypertension type: essential hypertension Obesity, morbid, BMI 40.0-49.9 E66.01 Graves disease E05.00 (1) Compartment syndrome Compartment syndrome location: lower extremity Compartment syndrome type: non-traumatic Laterality: left Qualified Code(s): M79.A22 - Nontraumatic compartment syndrome of left lower extremity (2) Hypertension Hypertension type: essential hypertension Qualified Code(s): I10 - Essential (primary) hypertension
[2020-09-19] MEDS: LACTATED RINGER'S 1,000 ML IV SCH ×2 (02:07→15:49)
[2020-09-19] MEDS: oxyCODONE HCL IR 5 MG TAB (IMMEDIATE RELEASE) PO PRN ×5 (02:07→23:34)
[2020-09-19] MEDS: ACETAMINOPHEN 500 MG TAB PO SCH ×3 (05:26→21:37)
[2020-09-19] MEDS: HYDROmorphone INJ 0.5 MG/0.5 ML SYR IV PRN ×3 (05:32→17:54)
[2020-09-19 07:10] LABS: Hematocrit (blood only) 36.1 % (42-52); Mean Corpuscular Hemoglobin 27.4 pg (25-34); Mean Corpuscular Hgb Conc 33.2 g/dL (32-36); Mean Corpuscular Volume 82.4 fL (80-100); Mean Platelet Volume 11.9 fL (7.4-10.4); Platelet Count 183 K/uL (130-400); RDW Standard Deviation 42.3 fL (36.4-46.3); Red Blood Count 4.38 M/uL (4.7-6.1); White Blood Count 5.69 K/uL (4.8-10.8)
[2020-09-19 07:41] LABS: BUN Creatinine Ratio 11.3 (10-20); Calcium 8.6 mg/dl (8.5-10.1); Creatinine Clr Calc Pharmacy 110.2 ml/min; Est GFR (African American) 79.1 ml/min; Est GFR (Non-African American) 68.2 ml/min; Potassium 4.4 mmol/L (3.5-5.1)
[2020-09-19] MEDS: SULFAMETHOXAZOLE/TRIMETHOPRIM DS 800/160MG TAB PO SCH ×2 (08:20→21:32)
[2020-09-19] MEDS: DOCUSATE SODIUM 100 MG CAP PO SCH ×2 (08:20→21:31)
[2020-09-19] MEDS: ASPIRIN 325 MG ECTAB PO SCH ×2 (08:20→21:30)
[2020-09-19] MEDS: lisinopril 40 MG TAB PO SCH (08:21)
[2020-09-19] MEDS: ASCORBIC ACID 500 MG TAB PO SCH ×2 (08:21→17:53)
[2020-09-19] MEDS: FERROUS GLUCONATE 324 MG TAB PO SCH ×2 (08:21→17:54)
[2020-09-19] MEDS: CIPROFLOXACIN 500 MG TAB PO SCH ×2 (08:22→21:30)
[2020-09-19] MEDS ORDERED: ENOXAPARIN INJ 40 MG/0.4 ML SYR SQ SCH (09:00)
[2020-09-19] MEDS ORDERED: lisinopril 10 MG TAB PO SCH (09:00)
[2020-09-19] MEDS: INSULIN ASPART 100 UNITS/ML 3 ML PEN SC SCH ×4 (09:19→21:32)
[2020-09-19] MEDS: ATENOLOL 50 MG TABLET PO SCH (12:45)
[2020-09-19] MEDS: methIMAzole 5 MG TABLET PO SCH (12:45)
[2020-09-19] MEDS: MULTIVITAMIN TAB PO SCH (12:45)
[2020-09-19] MEDS: GABAPENTIN 600 MG TAB PO SCH ×3 (12:45→21:31)
[2020-09-19] MEDS: FENOFIBRATE NANOCRYSTALLIZED 48 MG TABLET PO SCH (12:46)
[2020-09-19] MEDS: INSULIN GLARGINE SOLOSTAR 100 UNITS/ML 3 ML PEN SC SCH ×2 (12:46→21:33)
[2020-09-19] MEDS: ROSUVASTATIN CALCIUM 20 MG TAB PO SCH (12:46)
[2020-09-19] MEDS: HYDROmorphone INJ 1 MG/ML SYRINGE IV PRN (21:26)
[2020-09-19] MEDS: SENNA 8.6 MG TAB PO SCH (21:31)
--- NOTE | 2020-09-19 21:45 | Orthopedic Progress Note ---
Date of Service September 19, 2020 Assessment & Plan (1) H/O fasciotomy: Plan: Patient's wound VAC was left in place. Plans for discharge to [facility] for further debridement of his lower leg was discussed in detail. There currently no available beds at [facility]. Once a bed becomes available, he will be transported there. He will be n.p.o. after midnight in anticipation of surgery tomorrow. If he does not get transferred, wound VAC change will be done at bedside tomorrow. I have spoken with Kathia from wound care to make arrangements. Continue to monitor labs. Admission and Anticipated Discharge Date Admission Date: September 16, 2020 Subjective Patient is seen in his room this morning. He states his pain is improved. It is much less than when he was seen preoperatively. He denies any chest pain, shortness of breath, nausea, vomiting, or abdominal pain. He states he is waiting to find out whether he will stay here or go to [facility]. No other complaints. Review of Systems Review of Systems: Unchanged from yesterday. Physical Exam Physical Exam: Patient's left leg has an intact dressing. Wound VAC is in place. There is 200cc of bloody drainage in the wound VAC canister. Patient has intact motor function to his toes. He is able to lightly dorsiflex and plantarflex. He does have intact sensation to the toes. Ankle dorsiflexion remains absent. Results & Data ([facility]) Vital Signs (Past 12 Hours) Vital Signs Temp Pulse Resp BP Pulse Ox 09/19/20 14:00 36.7 C 77 20 100/57 L 94 Laboratory Results WBCs are 5.69. H&H are 12.0 and 36.1. Platelets 183. Sodium 135, potassium 4.4, BUN 14, creatinine 1.22. Glucose 150. He has been running consistently high. AST 113. Total CK 3866. Pathology specimen from surgery shows focal myocyte necrosis with moderate acute inflammation.
--- NOTE | 2020-09-19 23:06 | Hospitalist Progress Note ---
Date of Service September 19, 2020 Assessment & Plan (1) Compartment syndrome: Plan: LLE compartment syndrome - etiology uncertain. s/p Surgical Fasciotomy of anterior and lateral compartments - POD #3. s/p Left Leg Incision and Drainage, Irrigation, with Wound Vac Application - POD #1. Compartment syndrome with resulting rhabdomyolysis. CPK again improved today. cont IV fluids, pain control. Notified Dr Hussein of pt's pain complaints. Spoke with Dr Hussein - he plans to perform wound vac exchange tomorrow at bedside. Ultimately, however, pt needs transfer to [facility] for debridement of devitalized/necrotic tissue. no beds at [facility] at this time per report. cont antibiotics -- but cipro/bactrim is primarily for right foot wound. (2) Rhabdomyolysis: Plan: 2nd to #1. IMPROVED once again. cont LR. repeat CPK am. (3) Diabetes type 2, uncontrolled: Plan: Pharmacy glycemic team managing. Appreciate their assistance. Very good control. 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 Remains on PO cipro/bactrim. wound care team saw and continue dressings. (5) MARIA ANTONIA (acute kidney injury): Plan: Peak Cr 1.5 1.2 again today repeat BMP am cont IV fluids for rhabdo (6) Dyslipidemia: Plan: Continue Rosuvastatin 40 mg Daily (cautiously in light of elevated CPK) and fenofibrate (7) Hypertension: Plan: Resume lisinopril 40mg daily Cont atenolol 50mg daily (8) Obesity, morbid, BMI 40.0-49.9: Plan: BMI 40 (9) Graves disease: Plan: Continue methimazole TSH 04/2020 was wnl Plan: dispo - [facility], transfer there for LLE debridement Admission and Anticipated Discharge Date Admission Date: September 16, 2020 Subjective patient c/o LLE pain worse at night-time current pain meds working ok except for night-time eating well no new complaints Review of Systems Review of Systems: gen - no fever CV - no chest pain pulm - no cough or dyspnea GI - no nausea/emesis Physical Exam Physical Exam: gen- morbidly obese, NAD mouth- MMM neck- no JVD heart- RRR, s1s2, no murmur lungs- wheezes b/l - no change abd- soft NT ND BS+ ext- minimal edema left foot; left leg from knee to foot wrapped in dressings/WILLARD vasc - DP and pos tib pulses 2+ b/l including left foot; cap refill remains about 3 sec left foot; warm to touch b/l skin - dressings intact right foot (recent TMA in June 2020 at [place]) Results & Data Results & Data ([facility]) Vital Signs (Past 12 Hours) Vital Signs Temp Pulse Resp BP Pulse Ox 09/19/20 14:00 36.7 C 77 20 100/57 L 94 Laboratory Results Laboratory Results - last 24 hr 09/19/20 09/19/20 09/19/20 06:43 06:43 08:11 WBC 5.69 RBC 4.38 L Hgb 12.0 L Hct 36.1 L MCV 82.4 MCH 27.4 MCHC 33.2 RDW Std Deviation 42.3 RDW Coeff of Alondra 14.0 Plt Count 183 MPV 11.9 H Sodium 135 L Potassium 4.4 Chloride 104 Carbon Dioxide 28 Anion Gap 3.0 BUN 14 Creatinine 1.22 Est Cr Clr Drug Dosing 110.2 Est GFR ( Amer) 79.1 Est GFR (Non-Af Amer) 68.2 BUN/Creatinine Ratio 11.3 Glucose 150 H POC Glucose 163 H Calcium 8.6 AST 113 H Total Creatine Kinase 3866 H 09/19/20 09/19/20 09/19/20 12:05 17:20 20:42 WBC RBC Hgb Hct MCV MCH MCHC RDW Std Deviation RDW Coeff of Alondra Plt Count MPV Sodium Potassium Chloride Carbon Dioxide Anion Gap BUN Creatinine Est Cr Clr Drug Dosing Est GFR ( Amer) Est GFR (Non-Af Amer) BUN/Creatinine Ratio Glucose POC Glucose 190 H 125 H 105 H Calcium AST Total Creatine Kinase PG Care Time/CCT Total # of Minutes Spent Total Time Spent with Patient: Total time spent is greater than 50% in coordination of care (as documented) at patient's floor/unit and/or counseling patient: Coding Level of Care Code 58655 Subseq Hosp Care Lvl 1 Diagnoses Compartment syndrome M79.A22 Compartment syndrome location: lower extremity Compartment syndrome type: non-traumatic Laterality: left Rhabdomyolysis M62.82 Diabetes type 2, uncontrolled E11.65 Diabetic foot ulcer associated with type 2 diabetes mellitus E11.621; L97.509 MARIA ANTONIA (acute kidney injury) N17.9 Dyslipidemia E78.5 Hypertension I10 Hypertension type: essential hypertension Obesity, morbid, BMI 40.0-49.9 E66.01 Graves disease E05.00 (1) Compartment syndrome Compartment syndrome location: lower extremity Compartment syndrome type: non-traumatic Laterality: left Qualified Code(s): M79.A22 - Nontraumatic compartment syndrome of left lower extremity (2) Hypertension Hypertension type: essential hypertension Qualified Code(s): I10 - Essential (primary) hypertension
[2020-09-20] MEDS: HYDROmorphone INJ 1 MG/ML SYRINGE IV PRN ×4 (02:40→19:25)
[2020-09-20] MEDS: LACTATED RINGER'S 1,000 ML IV SCH ×2 (04:02→18:00)
[2020-09-20] MEDS: oxyCODONE HCL IR 5 MG TAB (IMMEDIATE RELEASE) PO PRN ×3 (04:02→21:20)
[2020-09-20] MEDS: ACETAMINOPHEN 500 MG TAB PO SCH ×3 (05:31→21:20)
[2020-09-20] MEDS: GABAPENTIN 600 MG TAB PO SCH ×3 (08:26→20:09)
[2020-09-20] MEDS: SULFAMETHOXAZOLE/TRIMETHOPRIM DS 800/160MG TAB PO SCH ×2 (08:26→20:11)
[2020-09-20] MEDS: DOCUSATE SODIUM 100 MG CAP PO SCH ×2 (08:27→20:10)
[2020-09-20] MEDS: ROSUVASTATIN CALCIUM 20 MG TAB PO SCH (08:27)
[2020-09-20] MEDS: ATENOLOL 50 MG TABLET PO SCH (08:28)
[2020-09-20] MEDS: methIMAzole 5 MG TABLET PO SCH (08:28)
[2020-09-20] MEDS: MULTIVITAMIN TAB PO SCH (08:28)
[2020-09-20] MEDS: FENOFIBRATE NANOCRYSTALLIZED 48 MG TABLET PO SCH (08:28)
[2020-09-20] MEDS: lisinopril 40 MG TAB PO SCH (08:29)
[2020-09-20] MEDS: FERROUS GLUCONATE 324 MG TAB PO SCH ×2 (08:29→18:02)
[2020-09-20] MEDS: CIPROFLOXACIN 500 MG TAB PO SCH ×2 (08:29→20:09)
[2020-09-20] MEDS: ASPIRIN 325 MG ECTAB PO SCH ×2 (08:29→20:08)
[2020-09-20] MEDS: ASCORBIC ACID 500 MG TAB PO SCH ×2 (08:29→18:02)
--- NOTE | 2020-09-20 08:58 | Progress Notes ---
DATE: 09/20/2020. SUBJECTIVE: Mr. Tidwell is resting comfortably in bed. The left leg is sore, but much, much improved compared to what it had been. He is anxious to get his Wound VAC changed. OBJECTIVE: VITAL SIGNS: Stable. He is afebrile. EXTREMITIES: On physical examination, the dressing is taken down. The splint is open, but the Wound VAC is left in place. He has what he is describing as improved sensation on the dorsum of the foot, but still numb. Improved sensation medially and normal all elsewhere including the plantar aspect. Dorsalis pedis and posterior tibial pulses are 1+. Foot is warm with capillary refill less than 2 s econds. He has 5/5 ankle plantarflexion and inversion strength. 0/5 eversion. Dorsiflexion of the ankle is 5-/5. Dorsiflexion of the big toe is 4-/5. The leg is not swollen. There is some bruising present. Wound VAC in place and properly functioning. Compartments are soft. LABORATORY DATA: There are no new labs or diagnostic studies. IMPRESSION: Lateral compartment, left leg muscle necrosis, status post idiopathic acute compartment syndrome of the lateral compartment, left leg. PLAN: I have been in discussion with Dr. Mckay at [facility]. He has accepted the patient in transfer . We are currently awaiting a bed. I think that it is appropriate to transfer him so that he gets t he appropriate aftercare for this condition, which the [facility] has more experien ce with managing, than I do here. He has some improvement in anterior compartment muscle function, bu t still nothing laterally. Plan is to hold his Lovenox in case he does get transferred. If he does get transferred, they would like to evaluate the wound surgically and change his Wound VAC. He will be kept n.p.o. this morning until we find out definitively if there is a bed available. Currently, [facility] do not have a bed for him. If he is not able to get transferred today, we will go ahead and let him eat, give him a dose of Lovenox and we will change his Wound VAC on the floor. I discussed this with him. I discussed with Palomo that I will be out next week, and his care will be assumed by one of my partners in my absence until he gets transferred. Job ID: [id number]
[2020-09-20] MEDS ORDERED: INSULIN GLARGINE SOLOSTAR 100 UNITS/ML 3 ML PEN SQ SCH (09:00)
[2020-09-20] MEDS: INSULIN ASPART 100 UNITS/ML 3 ML PEN SC SCH ×3 (10:00→18:03)
[2020-09-20 10:24] LABS: BUN Creatinine Ratio 12.9 (10-20); Creatinine Clr Calc Pharmacy 112.1 ml/min; Est GFR (African American) 80.7 ml/min; Est GFR (Non-African American) 69.6 ml/min; Potassium 4.2 mmol/L (3.5-5.1)
[2020-09-20 10:37] LABS: Alanine Aminotransferase 32 U/L (12-78); Albumin Level 2.9 gm/dl (3.4-5.0); Alkaline Phosphatase 47 U/L (45-117); Aspartate Aminotransferase 92 U/L (15-37); Bilirubin Direct < 0.1 mg/dl (0-0.2); Bilirubin,Total 0.4 mg/dl (0.2-1)
--- NOTE | 2020-09-20 11:49 | Hospitalist Progress Note ---
Date of Service September 20, 2020 Assessment & Plan (1) Compartment syndrome: Plan: LLE compartment syndrome - etiology uncertain. s/p Surgical Fasciotomy of anterior and lateral compartments - POD #4. s/p Left Leg Incision and Drainage, Irrigation, with Wound Vac Application - POD #2. Compartment syndrome with resulting rhabdomyolysis. CPK again improved today to 2525 from 9604 on admission--discussed holding his statin and fenofibrate at this time Continues on lactated Ringer at 90 cc an hour Wound VAC to be exchanged bedside today around noon if bed not available at [facility] however awaiting placement for debridement devitalized/necrotic tissue and creatinine at bedside this maranda He is currently continued on Cipro and Bactrim for his right foot foot wound infection, which could also be contributing to his elevated CK along with his overtreated thyroid possibly? Methimazole decreased milligrams daily recommend repeat thyroid function test needs for 6 weeks patient with his PCP (2) Rhabdomyolysis: Plan: 2nd to #1. IMPROVED once again. cont LR. Follow CPK (3) Diabetes type 2, uncontrolled: Plan: Pharmacy glycemic team managing. Appreciate their assistance. Very good control. (4) Diabetic foot ulcer associated with type 2 diabetes mellitus: Plan: S/p TMA amputation of all toes right foot in June 2020 at [facility] [place]. Remains on PO cipro/bactrim. wound care team saw and continue dressings. (5) MARIA ANTONIA (acute kidney injury): Plan: Peak Cr 1.5 1.2 again today repeat BMP am cont IV fluids for rhabdo (6) Dyslipidemia: Plan: Continue Rosuvastatin 40 mg Daily (cautiously in light of elevated CPK) and fenofibrate --placed on hold today, 09/20 and would hold until after resolved (7) Hypertension: Plan: Resumed lisinopril 40mg daily Cont atenolol 50mg daily Blood pressure stable 128/75 (8) Obesity, morbid, BMI 40.0-49.9: Plan: BMI 40 (9) Graves disease: Plan: On methimazole 10 mg prior to admissionpatient states he has been on this for approximately a year TSH 04/2020 was wnl however did repeat given her abdomen compartment syndrome was elevated to 18.6 and his methimazole was decreased 5 mg daily and recommended outpatient check thyroid function with further reduction if needed At discharge instructions to ensure this is followed up on and changed to med rec Plan: dispo [facility], transfer there for LLE debridement Admission and Anticipated Discharge Date Admission Date: September 16, 2020 Supervising Physician Co-Signing Physician Notes JESSY Supervision Note: I did not personally see or examine the patient today, but I verified all howard points of JESSY Ervin's assessment and plan with the following exceptions/additions: None Subjective Patient evaluated this morning. States that he is doing well. Pain is controlled with ordered medications. Has been eating and drinking today as he is waiting transfer. Seen by orthopedics and plans for wound VAC change Did not avoid [facility] at this time. Is currently 1145 and he does anticipate wound VAC to be changed but was to transfer when bed available. He does have i mproved sensation today to the bottom of his foot today as well as the medial aspect but nothing on the lateral side. Discussed his methimazole use for his hyperthyroidism. He notes that he has been taking 10 mg dose for approximately 1 year and given elevated TSH discussed this is overcorrected and will decrease to 5 mg daily and have his primary care check thyroid function testing in 4 weeks as an outpatient to see if further reduction needed. No fevers chills chest pain shortness of breath abdominal pain nausea vomiting at this time.. He is comfortable in bed he is thirsty and requesting water at this time. Review of Systems Review of Systems: All systems reviewed & are unremarkable except as noted in HPI & below Physical Exam Physical Exam: gen- morbidly obese, NAD mouth- MMM neck- no JVD heart- RRR, s1s2, no murmur lungs- wheezes b/l - no change abd- soft NT ND BS+ ext- minimal edema left foot; left leg from knee to foot wrapped in dressings/WILLARD vasc - DP and pos tib pulses 2+ b/l including left foot; cap refill remains about 3 sec left foot; warm to touch b/l . Compartments soft still with decreased sensation lateral compartment. Bruising present however erythema does appear to have decreased skin - dressings intact right foot (recent TMA in June 2020 at [facility]) Results & Data Results & Data ([facility]) Vital Signs (Past 12 Hours) Vital Signs Temp Pulse Resp BP Pulse Ox 09/20/20 07:03 36.5 C 68 18 128/75 95 Laboratory Results 09/20/20 09/20/20 09/20/20 Range/Units 11:05 11:05 09:06 Sodium (136-145) mmol/L Potassium (3.5-5.1) mmol/L Chloride (98-107) mmol/L Carbon Dioxide (21-32) mmol/L Anion Gap (3-11) BUN (7-18) mg/dl Creatinine (0.6-1.4) mg/dl Est Cr Clr Drug Dosing ml/min Est GFR ( Amer) ml/min Est GFR (Non-Af Amer) ml/min BUN/Creatinine Ratio (10-20) Glucose (70-99) mg/dl POC Glucose (70-99) mg/dl Calcium (8.5-10.1) mg/dl Total Bilirubin 0.4 (0.2-1) mg/dl Direct Bilirubin < 0.1 (0-0.2) mg/dl AST 92 H (15-37) U/L ALT 32 (12-78) U/L Alkaline Phosphatase 47 (45-117) U/L Total Creatine Kinase (39-308) U/L Total Protein 7.0 (6.4-8.2) gm/dl Albumin 2.9 L (3.4-5.0) gm/dl TSH 18.600 H (0.300-4.500) uIu/ml Free T4 Pending Free T3 Pending 09/20/20 09/20/20 09/19/20 Range/Units 09:06 08:08 20:42 Sodium 134 L (136-145) mmol/L Potassium 4.2 (3.5-5.1) mmol/L Chloride 103 (98-107) mmol/L Carbon Dioxide 26 (21-32) mmol/L Anion Gap 5.0 (3-11) BUN 15 (7-18) mg/dl Creatinine 1.20 (0.6-1.4) mg/dl Est Cr Clr Drug Dosing 112.1 ml/min Est GFR ( Amer) 80.7 ml/min Est GFR (Non-Af Amer) 69.6 ml/min BUN/Creatinine Ratio 12.9 (10-20) Glucose 138 H (70-99) mg/dl POC Glucose 136 H 105 H (70-99) mg/dl Calcium 9.0 (8.5-10.1) mg/dl Total Bilirubin (0.2-1) mg/dl Direct Bilirubin (0-0.2) mg/dl AST (15-37) U/L ALT (12-78) U/L Alkaline Phosphatase (45-117) U/L Total Creatine Kinase 2525 H (39-308) U/L Total Protein (6.4-8.2) gm/dl Albumin (3.4-5.0) gm/dl TSH (0.300-4.500) uIu/ml Free T4 Free T3 09/19/20 09/19/20 Range/Units 17:20 12:05 Sodium (136-145) mmol/L Potassium (3.5-5.1) mmol/L Chloride (98-107) mmol/L Carbon Dioxide (21-32) mmol/L Anion Gap (3-11) BUN (7-18) mg/dl Creatinine (0.6-1.4) mg/dl Est Cr Clr Drug Dosing ml/min Est GFR ( Amer) ml/min Est GFR (Non-Af Amer) ml/min BUN/Creatinine Ratio (10-20) Glucose (70-99) mg/dl POC Glucose 125 H 190 H (70-99) mg/dl Calcium (8.5-10.1) mg/dl Total Bilirubin (0.2-1) mg/dl Direct Bilirubin (0-0.2) mg/dl AST (15-37) U/L ALT (12-78) U/L Alkaline Phosphatase (45-117) U/L Total Creatine Kinase (39-308) U/L Total Protein (6.4-8.2) gm/dl Albumin (3.4-5.0) gm/dl TSH (0.300-4.500) uIu/ml Free T4 Free T3 PG Care Time/CCT Total # of Minutes Spent Total Time Spent with Patient: Total time spent is greater than 50% in coordination of care (as documented) at patient's floor/unit and/or counseling patient: Coding Level of Care Code 17056 Subseq Hosp Care Lvl 2 Diagnoses Compartment syndrome M79.A22 Compartment syndrome location: lower extremity Compartment syndrome type: non-traumatic Laterality: left Rhabdomyolysis M62.82 Diabetes type 2, uncontrolled E11.65 Diabetic foot ulcer associated with type 2 diabetes mellitus E11.621; L97.509 MARIA ANTONIA (acute kidney injury) N17.9 Dyslipidemia E78.5 Hypertension I10 Hypertension type: essential hypertension Obesity, morbid, BMI 40.0-49.9 E66.01 Graves disease E05.00 (1) Compartment syndrome Compartment syndrome location: lower extremity Compartment syndrome type: non-traumatic Laterality: left Qualified Code(s): M79.A22 - Nontraumatic compartment syndrome of left lower extremity (2) Hypertension Hypertension type: essential hypertension Qualified Code(s): I10 - Essential (primary) hypertension
[2020-09-20] MEDS ORDERED: HYDROmorphone INJ 0.5 MG/0.5 ML SYR IV STA (12:00)
[2020-09-20] MEDS ORDERED: ENOXAPARIN INJ 40 MG/0.4 ML SYR SQ ONE (12:00)
--- NOTE | 2020-09-20 14:25 | Pharmacy Report ---
Pharmacy Glycemic Short Note 2 - Date of Service September 20, 2020 - Glycemic Short BSG Results (Last 24 hours): 09/19/20 09/19/20 09/20/20 17:20 20:42 08:08 Glucose POC Glucose 125 H 105 H 136 H 09/20/20 09/20/20 09:06 11:52 Glucose 138 H POC Glucose 146 H OUTPATIENT ANTIDIABETIC REGIMEN: * Lantus 110 units HS * Novolog 40 units plus sliding scale? * Trulicity 1.5 mg SQ weekly ASSESSMENT: 09/19: * Palomo received 117 units of SQ insulin yesterday with good glycemic control * 70 units of basal * 47 units of bolus * BSGs ranged from 105 - 190 mg/dL * Fasting BSG of 136 mg/dL is near goal. * I will change basal insulin order to dose per scale since patient was NPO this morning and will again be NPO at midnight * Post prandial BSG are acceptable. No change to novolog. * Patient awaiting transfer [place] [facility] 09/18: * Palomo received 114 units of SQ insulin yesterday * 70 units of basal * 44 units of bolus * BSGs ranged from 133 - 196 mg/dL * He went to the OR today for L leg I&D with wound vac placement * Fasting BSG of 145 mg/dL this morning which is slightly elevated. Morning Lantus dose was decreased for NPO status, however dose was not administered until after procedure (~1400) * Post prandial BSGs were elevated yesterday, therefore novolog parameters were tightened 09/17: * Patient admitted post fasciotomy to left lower leg * Home Lantus dose was confirmed by pharmacist with patient last evening. BSGs adequate this morning after a reduced dose of lantus. Will continue a reduced BID dosing regimen (~35% reduction of home dose) and moderate stress novolog scale. Patient is ordered and is tolerating a diet. PLAN FOR INPATIENT GLYCEMIC CONTROL: * Hold outpatient oral diabetes medications * Basal insulin * Lantus 25-35 units SQ BID (25 units for BSG < 110) * Bolus insulin * NovoLog per scale ACHS or Q6hrs while NPO * Goal Range: Low 110 mg/dL - High 140 mg/dL * Correction Factor: 15 mg/dL/unit * Nutritional / Prandial insulin per carb ratio of 1 unit per 4 grams CHO consumed PLAN FOR DISCHARGE: * TBD
[2020-09-20] MEDS: SENNA 8.6 MG TAB PO SCH (20:10)
[2020-09-20] MEDS: INSULIN GLARGINE SOLOSTAR 100 UNITS/ML 3 ML PEN SQ SCH (20:12)
[2020-09-21] MEDS: INSULIN ASPART 100 UNITS/ML 3 ML PEN SC SCH ×4 (00:09→13:19)
[2020-09-21] MEDS: HYDROmorphone INJ 1 MG/ML SYRINGE IV PRN ×3 (00:18→11:04)
[2020-09-21] MEDS: oxyCODONE HCL IR 5 MG TAB (IMMEDIATE RELEASE) PO PRN ×3 (03:59→13:29)
[2020-09-21 05:40] VITALS: BP 130/75; PULSE 78; TEMP 98.2; O2SAT 95
[2020-09-21] MEDS: ACETAMINOPHEN 500 MG TAB PO SCH ×2 (05:42→13:20)
[2020-09-21] MEDS: LACTATED RINGER'S 1,000 ML IV SCH (05:43)
[2020-09-21 06:20] LABS: Basophils # (auto) 0.06 K/uL (0-0.2); Eosinophils # (auto) 0.32 K/uL (0-0.5); Eosinophils % (auto) 5.1 %; Hematocrit (blood only) 36.6 % (42-52); Hemoglobin 12.4 g/dL (14.0-18.0); Immature Granulocytes # (auto) 0.02 K/uL (0.00-0.02); Immature Granulocytes % (auto) 0.3 %; Lymphocytes # (auto) 1.78 K/uL (1.2-3.4); Lymphocytes % (auto) 28.4 %; Mean Corpuscular Hemoglobin 27.6 pg (25-34); Mean Corpuscular Hgb Conc 33.9 g/dL (32-36); Mean Corpuscular Volume 81.3 fL (80-100); Monocytes # (auto) 0.54 K/uL (0.11-0.59); Monocytes % (auto) 8.6 %; Neutrophils # (auto) 3.55 K/uL (1.4-6.5); Neutrophils % (auto) 56.6 %; Platelet Count 210 K/uL (130-400); White Blood Count 6.27 K/uL (4.8-10.8)
[2020-09-21 06:53] LABS: BUN Creatinine Ratio 13.1 (10-20); Calcium 9.3 mg/dl (8.5-10.1); Creatinine Clr Calc Pharmacy 97.4 ml/min; Est GFR (African American) 68.1 ml/min; Est GFR (Non-African American) 58.8 ml/min; Potassium 4.3 mmol/L (3.5-5.1)
[2020-09-21] MEDS: MULTIVITAMIN TAB PO SCH (07:42)
[2020-09-21] MEDS: ATENOLOL 50 MG TABLET PO SCH (07:42)
[2020-09-21] MEDS: lisinopril 40 MG TAB PO SCH ×2 (07:42→10:51)
[2020-09-21] MEDS: ASCORBIC ACID 500 MG TAB PO SCH (07:43)
[2020-09-21] MEDS: FERROUS GLUCONATE 324 MG TAB PO SCH (07:43)
[2020-09-21] MEDS: GABAPENTIN 600 MG TAB PO SCH ×2 (07:44→13:20)
[2020-09-21] MEDS: CIPROFLOXACIN 500 MG TAB PO SCH (07:44)
[2020-09-21] MEDS: ASPIRIN 325 MG ECTAB PO SCH (07:44)
[2020-09-21] MEDS: SULFAMETHOXAZOLE/TRIMETHOPRIM DS 800/160MG TAB PO SCH (07:44)
[2020-09-21] MEDS: DOCUSATE SODIUM 100 MG CAP PO SCH (07:44)
[2020-09-21] MEDS ORDERED: ENOXAPARIN INJ 40 MG/0.4 ML SYR SQ ONE (07:55)
--- NOTE | 2020-09-21 08:28 | Orthopedic Progress Note ---
Date of Service September 21, 2020 Assessment & Plan (1) H/O fasciotomy: Plan: Patient's wound VAC is functioning. He was n.p.o. over night. Due to his delay in transfer, new diabetic diet was ordered for him. He made today. I did order his one-time dose of Lovenox for today. Hopefully a bed will become available and he may be transferred to [facility] today. We will continue to follow him while he is admitted. Continue with elevation. I did remove his Brandon wraps, and they may be reapplied today, including the foot so that he does not sequester fluid distally. Continue with elevation of the leg. Admission and Anticipated Discharge Date Admission Date: September 16, 2020 Subjective Patient was seen in his room this morning. He has no complaints. Denies any significant discomfort. He feels his range of motion in the ankle is improving, as is his strength. Denies any numbness or tingling. He was supposed to be transferred to [facility] last night, as a bed was available. No BLS transport was available, and his bed was given away. We are now waiting to find a new bed. Review of Systems Review of Systems: Unchanged from yesterday. Physical Exam Physical Exam: General: Well-developed, well-nourished, middle-aged male, in no acute distress. Laying in bed. Conversive. Alert and oriented. Skin: Warm dry with good turgor. His foot is mildly edematous today. He does have an Brandon wrap present on just his calf. Upon removal, his wound VAC is in place and functioning. Musculoskeletal: Patient has intact motor function of his toes and ankle. He has good strength for dorsiflexion and plantarflexion as well as inversion. He can jonas to neutral. No appreciable ability to jonas his foot. He has no pain with palpation over his foot, ankle, or gastroc. Neurologic: Gross sensation is intact across the foot and ankle by soft touch. Results & Data ([facility]) Vital Signs (Past 12 Hours) Vital Signs Temp Pulse Pulse Resp BP BP Pulse Ox 09/21/20 05:32 36.8 C 78 16 130/75 95 09/21/20 04:28 36.7 C 76 69 18 133/77 108/67 96 09/20/20 22:32 36.7 C 69 18 133/77 96 Laboratory Results WBCs this morning are 6.2. H&H 12.4 and 36.6. PRP is unremarkable. Glucose this morning is 127. Total CK has fallen to 1910.
[2020-09-21] MEDS ORDERED: Nursing to Pharmacy Communication SCH (08:30)
[2020-09-21] MEDS: INSULIN GLARGINE SOLOSTAR 100 UNITS/ML 3 ML PEN SQ SCH (08:40)
[2020-09-21] MEDS ORDERED: methIMAzole 5 MG TABLET PO SCH (09:00)
--- NOTE | 2020-09-21 13:16 | Hospitalist Progress Note ---
Date of Service September 21, 2020 Assessment & Plan (1) Compartment syndrome: Plan: LLE compartment syndrome - etiology uncertain. s/p Surgical Fasciotomy of anterior and lateral compartments - POD #5. s/p Left Leg Incision and Drainage, Irrigation, with Wound Vac Application - POD #3. Compartment syndrome with resulting rhabdomyolysis. CPK again improved today to 1910 from 9604 on admission-- holding statin/fenofibrate while elevated at this time Continue LR @ 90cc/hr Wound vac changed at bedside 09/20 Cr wnl but 1.38 and will hold lisinopril this morning (BP acceptable 130/75) Got Lovenox x 1 yesterday and today in the meantime A[place] [facility] [place] devitalized/necrotic tissue (bed available 09/20 however BLS transport not able to be arranged and bed was given away). Ortho searching for new bed Continued on Cipro and Bactrim for his right foot foot wound infection, which could also be contributing to his elevated CK along with his overtreated thyroid possibly? Methimazole decreased milligrams daily recommend repeat thyroid function test needs for 4-6 weeks patient with his PCP (2) Rhabdomyolysis: Plan: 2nd to #1. IMPROVED once again. cont LR. Follow CPK (3) Diabetes type 2, uncontrolled: Plan: Pharmacy glycemic team managing. Appreciate their assistance. Very good control. (4) Diabetic foot ulcer associated with type 2 diabetes mellitus: Plan: S/p TMA amputation of all toes right foot in June 2020 at [facility]. Remains on PO cipro/bactrim. wound care team saw and continue dressings. (5) MARIA ANTONIA (acute kidney injury): Plan: Peak Cr 1.5 1.2 again today --> 1.38 today and holding lisinopril. Continue LR as above Follow BMP if remains inpatient (6) Dyslipidemia: Plan: Continue Rosuvastatin 40 mg Daily (cautiously in light of elevated CPK) and fenofibrate --placed on hold 09/20 and would hold until after rhabdo resolved (7) Hypertension: Plan: Continue atenolol 50mg daily Hold lisinopril 40mg for MARIA ANTONIA as above BP stable 130/75 - continue to monitor (8) Obesity, morbid, BMI 40.0-49.9: Plan: BMI 40 (9) Graves disease: Plan: On methimazole 10 mg prior to admissionpatient states he has been on this for approximately a year TSH 04/2020 was wnl however did repeat given her abdomen compartment syndrome was elevated to 18.6 and his methimazole was decreased 5 mg daily and recommended outpatient check thyroid function with further reduction if needed At discharge instructions to ensure this is followed up on and changed to med rec Plan: dispo - [facility], transfer there for LLE debridement when bed available and transportation set up Admission and Anticipated Discharge Date Admission Date: September 16, 2020 Supervising Physician Co-Signing Physician Notes JESSY Supervision Note: I did not personally see or examine the patient today, but I verified all howard points of JESSY Ervin's assessment and plan with the following exceptions/additions: None Subjective Patient evaluated this afternoon. Wound vac changed yesterday afternoon. Bed was available but transportation not able to be arranged and bed was given away. Currently awaiting new bed and then plans for transfer when available. Patient doing well. Had colin wrap to leg last night that caused increased swelling/pain but was removed this morning and feeling better. Pain well controlled. Eating lunch currently. No fever, chills, chest pain, shortness of breath, abdominal pain, nausea or vomiting. Review of Systems Review of Systems: All systems reviewed & are unremarkable except as noted in HPI & below Physical Exam Physical Exam: gen- morbidly obese, NAD, sitting up in chair eating lunch mouth- MMM neck- no JVD, heart- RRR, s1s2, no murmur lungs- decreased wheezes b/l , no crackles, rhonchi, on room air abd- soft NT ND BS+ ext- minimal edema left foot; left leg with wound vac in place, functioning, no further COLIN wrap vasc - DP and pos tib pulses 2+ b/l including left foot; cap refill remains ~ 3 sec to his left foot; warm to touch b/l . Compartments soft still with decreased sensation lateral compartment however appears some sensation returning. Bruising present however erythema does appear to have decreased skin - dressings intact right foot (recent TMA in June 2020 at [place]) Results & Data Results & Data ([facility]) Vital Signs (Past 12 Hours) Vital Signs Temp Pulse Pulse Resp BP BP Pulse Ox 09/21/20 05:32 36.8 C 78 16 130/75 95 09/21/20 04:28 36.7 C 76 69 18 133/77 108/67 96 Laboratory Results 09/21/20 09/21/20 09/21/20 Range/Units 11:58 08:08 05:51 WBC (4.8-10.8) K/uL RBC (4.7-6.1) M/uL Hgb (14.0-18.0) g/dL Hct (42-52) % MCV (80-100) fL MCH (25-34) pg MCHC (32-36) g/dL Plt Count (130-400) K/uL Immature Gran % (Auto) % Neut % (Auto) % Lymph % (Auto) % [place] % (Auto) % Eos % (Auto) % Baso % (Auto) % Neut # (Auto) (1.4-6.5) K/uL Lymph # (Auto) (1.2-3.4) K/uL [place] # (Auto) (0.11-0.59) K/uL Eos # (Auto) (0-0.5) K/uL Baso # (Auto) (0-0.2) K/uL Immature Gran # (Auto) (0.00-0.02) K/uL Sodium 136 (136-145) mmol/L Potassium 4.3 (3.5-5.1) mmol/L Chloride 104 (98-107) mmol/L Carbon Dioxide 28 (21-32) mmol/L Anion Gap 4.0 (3-11) BUN 18 (7-18) mg/dl Creatinine 1.38 (0.6-1.4) mg/dl Est Cr Clr Drug Dosing 97.4 ml/min Est GFR ( Amer) 68.1 ml/min Est GFR (Non-Af Amer) 58.8 ml/min BUN/Creatinine Ratio 13.1 (10-20) Glucose 127 H (70-99) mg/dl POC Glucose 136 H 156 H (70-99) mg/dl Calcium 9.3 (8.5-10.1) mg/dl AST 82 H (15-37) U/L Total Creatine Kinase 1910 H (39-308) U/L 09/21/20 09/21/20 09/21/20 Range/Units 05:51 05:36 00:03 WBC 6.27 (4.8-10.8) K/uL RBC 4.50 L (4.7-6.1) M/uL Hgb 12.4 L (14.0-18.0) g/dL Hct 36.6 L (42-52) % MCV 81.3 (80-100) fL MCH 27.6 (25-34) pg MCHC 33.9 (32-36) g/dL Plt Count 210 (130-400) K/uL Immature Gran % (Auto) 0.3 % Neut % (Auto) 56.6 % Lymph % (Auto) 28.4 % [place] % (Auto) 8.6 % Eos % (Auto) 5.1 % Baso % (Auto) 1.0 % Neut # (Auto) 3.55 (1.4-6.5) K/uL Lymph # (Auto) 1.78 (1.2-3.4) K/uL [place] # (Auto) 0.54 (0.11-0.59) K/uL Eos # (Auto) 0.32 (0-0.5) K/uL Baso # (Auto) 0.06 (0-0.2) K/uL Immature Gran # (Auto) 0.02 (0.00-0.02) K/uL Sodium (136-145) mmol/L Potassium (3.5-5.1) mmol/L Chloride (98-107) mmol/L Carbon Dioxide (21-32) mmol/L Anion Gap (3-11) BUN (7-18) mg/dl Creatinine (0.6-1.4) mg/dl Est Cr Clr Drug Dosing ml/min Est GFR ( Amer) ml/min Est GFR (Non-Af Amer) ml/min BUN/Creatinine Ratio (10-20) Glucose (70-99) mg/dl POC Glucose 128 H 119 H (70-99) mg/dl Calcium (8.5-10.1) mg/dl AST (15-37) U/L Total Creatine Kinase (39-308) U/L 09/20/20 Range/Units 17:01 WBC (4.8-10.8) K/uL RBC (4.7-6.1) M/uL Hgb (14.0-18.0) g/dL Hct (42-52) % MCV (80-100) fL MCH (25-34) pg MCHC (32-36) g/dL Plt Count (130-400) K/uL Immature Gran % (Auto) % Neut % (Auto) % Lymph % (Auto) % [place] % (Auto) % Eos % (Auto) % Baso % (Auto) % Neut # (Auto) (1.4-6.5) K/uL Lymph # (Auto) (1.2-3.4) K/uL [place] # (Auto) (0.11-0.59) K/uL Eos # (Auto) (0-0.5) K/uL Baso # (Auto) (0-0.2) K/uL Immature Gran # (Auto) (0.00-0.02) K/uL Sodium (136-145) mmol/L Potassium (3.5-5.1) mmol/L Chloride (98-107) mmol/L Carbon Dioxide (21-32) mmol/L Anion Gap (3-11) BUN (7-18) mg/dl Creatinine (0.6-1.4) mg/dl Est Cr Clr Drug Dosing ml/min Est GFR ( Amer) ml/min Est GFR (Non-Af Amer) ml/min BUN/Creatinine Ratio (10-20) Glucose (70-99) mg/dl POC Glucose 161 H (70-99) mg/dl Calcium (8.5-10.1) mg/dl AST (15-37) U/L Total Creatine Kinase (39-308) U/L PG Care Time/CCT Total # of Minutes Spent Total Time Spent with Patient: Total time spent is greater than 50% in coordination of care (as documented) at patient's floor/unit and/or counseling patient: Coding Level of Care Code 79211 Subseq Hosp Care Lvl 2 Diagnoses Compartment syndrome M79.A22 Compartment syndrome location: lower extremity Compartment syndrome type: non-traumatic Laterality: left Rhabdomyolysis M62.82 Diabetes type 2, uncontrolled E11.65 Diabetic foot ulcer associated with type 2 diabetes mellitus E11.621; L97.509 MARIA ANTONIA (acute kidney injury) N17.9 Dyslipidemia E78.5 Hypertension I10 Hypertension type: essential hypertension Obesity, morbid, BMI 40.0-49.9 E66.01 Graves disease E05.00 (1) Compartment syndrome Compartment syndrome location: lower extremity Compartment syndrome type: non-traumatic Laterality: left Qualified Code(s): M79.A22 - Nontraumatic compartment syndrome of left lower extremity (2) Hypertension Hypertension type: essential hypertension Qualified Code(s): I10 - Essential (primary) hypertension
[2020-09-21] MEDS ORDERED: INSULIN GLARGINE SOLOSTAR 100 UNITS/ML 3 ML PEN SQ SCH (21:00)
--- NOTE | 2020-09-28 10:06 | Discharge Summary (DS) ---
DATE OF ADMISSION: 09/16/2020 DATE OF DISCHARGE: 09/21/2020 ADMITTING PHYSICIAN: Dr. Hussein. CONSULTING PHYSICIAN: Dr. Madrid. ADMISSION DIAGNOSIS: Left lower leg compartment syndrome. DISCHARGE DIAGNOSIS: Left lower leg compartment syndrome. OPERATION: Left leg anterior and lateral compartment fasciotomies performed on 09/16/2020. HISTORY OF PRESENT ILLNESS: This 50-year-old male presented through the ED on 09/16/2020 for left lo wer extremity pain that had been present for 2 days. He described it as severe cramping. He denied any trauma or injury. He denies any use of anticoagulants or blood thinners. He did try some topica l agents, which seemed to make his pain worse and developed redness. The patient recently had a righ t foot transmetatarsal amputation following diabetic ulcer, performed at [facility]. He denies any prob lems in that leg. PAST MEDICAL HISTORY: Significant for type 2 diabetes - uncontrolled, diabetic foot ulcers, diabetic peripheral neuropathy, dyslipidemia, Graves' disease, hypertension, tobacco use. PAST SURGICAL HISTORY: History of transmetatarsal amputation of right foot. FAMILY HISTORY: Significant for diabetes. SOCIAL HISTORY: Current every day smoker. He uses a pack a day. No ETOH use. Unemployed. He is t rying to get disability. Lives with his girlfriend and his mother. HOSPITAL COURSE: The patient was initially seen in ED on 09/16/2020 by the ER staff. He was thought to have a compartment syndrome. Orthopedics was consulted. The patient was evaluated in the ED by Dr. Hussein. Left leg was significantly tense in the lateral compartment. The muscle was rock mariana d. Labs showed an elevated white count, elevated sed rate, and elevated C-reactive protein. He had 1+ dorsalis pedis and posterior tibial pulses. The left foot was slightly cooler than the right. Th e patient had normal ankle flexion and extension strength on the right, but could not actively flex o r extend the ankle and had no toe dorsiflexion. He did have toe plantar flexion. The patient had no ability to actively jonas his ankle. He was able to invert. Posterior compartments looked soft and nontender. There is an erythemic area over the anterolateral compartment that was reportedly due to Flexall 454 application. There was no pain with passive movement of the ankle or toes. Risk of com partment syndrome was discussed with the patient. He elected to proceed with surgical intervention. The patient was taken directly to the OR for anterior and lateral compartment fasciotomies. The veronica ent was COVID tested and was negative. Intraoperative findings showed that the muscle in the anterio r compartment was contractile with electrostimulation. The lateral compartment had significant bulgi ng of the muscle and it was bruised and not contractile with electrical stimulation. Concern for pot entially necrotic tissue was discussed with the patient after the procedure. He was splinted and ascencion tored for the evening. The patient was evaluated on 09/17 and he had continued diminished sensation on the top of the foot as well as over the medial aspect. He had normal sensation of the lateral and plantar aspects of the foot. Peripheral pulses continued to be 1+. He had no pain with passive mov ement. He continued to have intact plantar flexion and inversion, but no eversion. No function of t he EHL. Labs remained stable. His pain was significantly improved. The patient was taken back to the OR on 09/18 and his wound was reevaluated. Musculature had improved visually and there was capillary bleeding. The patient was placed in the wound VAC and splint. He continued to have a lack of lateral compartment function. Reevaluation later that day showed that he was comfortable. Consultation was made with Dr. Harshal Mckay at [facility] for transf er and further surgical intervention. They were in agreement and accepted the patient; however, no b eds were available. The patient remained at [facility] in stable condition that evening. On 09/19, patient's wound VAC was functioning. There continued to be no bed availability at [facility]. He was initially made n.p.o. prior evening, but due to lack of transfer, diet was changed and he wa s allowed to eat. He was made n.p.o. after midnight on this day pending transfer. He did have impro vement with slight dorsiflexion of the toes. Ankle dorsiflexion remained absent. Vitals remained st able. On 09/20, the patient was again evaluated. No bed at [facility] was available. He was again allowed to eat and made n.p.o. after midnight in anticipation of transfer and surgery the following day. Wound VAC was again in place. The patient had improved sensation on the dorsum of the foot, but still did not have normal sensation. Pulses remain 1+. He was unable to jonas the ankle, but had improvement of dorsiflexion of the great toe as well as dorsiflexion of the ankle. [facility] was again contacted and there were no beds available. They were hoping for transfer on the . The patient again marisela ined stable. On 09/21, the patient was again evaluated. No beds were available at [facility]. Diet was changed to a llow him to eat. The wound VAC remained functioning. The patient remained comfortable. On the afte of 09/21, a bed did become available at [facility] and transport was arranged. The patient depart ed for [facility] in anticipation of surgery on the . The patient did remain anticoagulated using L ovenox during his stay in the hospital. Wound VAC was changed once during this time. Vitals remaine d stable during his entire admission. The patient remained afebrile during his entire course of stay . Labs on the day of discharge showed WBCs of 6.2, hemoglobin 12.4, hematocrit 36.6, platelets 210,000. Sodium 136, potassium 4.3, chloride 104, BUN 18, creatinine 1.38, glucose 127, AST of 82 and total C K of 1910. This was reduced from a high of 9604. Max AST was 336. The patient may follow up in the office for further wound care after he returns from [facility]. Job ID: [id number]
== END 2020-09-21 14:10 | disposition short-term general hospital (02) | DRG 501 ==
LOC: ED 13:09 → 2E 19:54 → PACUINP 09-18 11:08 → 3W 09-18 12:59

== ENCOUNTER 2025-01-01 12:46 | Observation (INO) ==
--- NOTE | 2025-01-01 12:58 | Emergency Department Note ---
Impression & Plan Pain and swelling of right ankle, Charcot's joint of foot in type 2 diabetes mellitus, Erythema of joint ED Provider Note CHIEF COMPLAINT: Right ankle infection HISTORY OF PRESENTING ILLNESS: This 54-year-old male patient presents to the emergency department with his significant other for evaluation of an infection to the right ankle. The patient was seen in the ER on 12/29/2024 and given IV antibiotics as well as oral antibiotics. The patient saw the diabetic foot clinic today as an outpatient and was told to come to the ER if his symptoms worsened. The patient states that the pain and redness has worsened since his outpatient visit. He denies any open wound. He denies any fever or chills. The patient is a poorly controlled diabetic with Charcot joint. The patient has had an amputation of his toes of the right foot. Upon review of the ER visit, the patient was given Rocephin 2 g IV and was discharged home on Keflex and Bactrim. An x-ray of the right ankle showed postsurgical transmetatarsal amputation with chronic talar collapse and neuropathic changes of the ankle and hindfoot which are unchanged. Subtle cortical irregularity at the residual fifth metatarsal bone adjacent to the screw and osteomyelitis is not excluded. Interval improvement of the lateral stump ulceration. Otherwise no significant interval changes. The patient was offered admission, but wished to be discharged at that time. REVIEW OF SYSTEMS: See HPI for pertinent positives and pertinent negatives. ALLERGIES: NKDA MEDICATIONS: See below PAST MEDICAL HISTORY: See below PHYSICAL EXAM: VITALS: Vitals are noted on the nurse's note and reviewed by myself. GENERAL: Non toxic, in no acute distress, non-diaphoretic. SKIN/MUSCULOSKELETAL: The right lower extremity is status post amputation of the right toes. There is a mostly healed ulceration to the distal/lateral aspect of the right foot. The ulceration has no erythema, edema, warmth, fluctuance, or discharge from the area. The patient has erythema and edema as well as maximal tenderness to palpation over his right medial malleolus with tenderness to palpation into the right heel. No tenderness to palpation to the distal aspect of the right foot. No tenderness to palpation over the lateral malleolus of the right ankle. No tenderness to palpation of the right tib-fib. No tenderness to palpation of the right calf. No obvious erythema, edema, warmth, or cording of the right calf. Capillary refill <2 sec. EYES: PERRLA. EOMI. Conjunctivae without injection, sclerae without icterus. NOSE: Patent without discharge. MOUTH: Mucous membranes moist. Uvula midline. Airway patent. NECK: Supple without nuchal rigidity. HEART: Regular rate and rhythm without murmurs gallops or rubs. LUNGS: Clear to auscultation bilaterally without wheezes, rales or rhonchi. No retractions or accessory muscle use. NEURO: Patient was alert and oriented. DIFFERENTIAL DIAGNOSIS: Differential diagnosis includes cellulitis, abscess, MRSA infection, DVT, necrotizing fasciitis, dermatitis, drug eruption, allergic reaction, as well as other pathologies. ED COURSE AND MEDICAL DECISION MAKING: MEDICATIONS GIVEN: 500 mL normal saline solution bolus. Toradol 10 mg IV. Morphine 4 mg IV and Zofran 4 mg IV. MONITOR: Continuous monitoring coordinator: Order was placed for continuous monitoring coordinator. Patient was placed on the monitoring coordinator and continuous pulse ox. Patient was noted to be in normal sinus rhythm at an initial rate of 90 bpm per my interpretation. INTERPRETATION OF LABS: I interpreted the labs with full lab results as below in the lab section of this note. Laboratory results pertinent to the emergent complaint are discussed in the MDM section below. The patient was advised to follow up with their PCP and/or specialist(s) for further outpatient monitoring and management of any abnormal results. INTERPRETATION OF IMAGING: Imaging studies were interpreted by myself and read by radiology as per the imaging section of this note. The patient was advised to follow up with their PCP and/or specialist(s) for further outpatient management of any non-emergent abnormal findings. MRI of the right ankle without contrast was obtained and resulted after the patient had already been admitted. I made the admitting team and Dr. Alejo aware that the MRI results had been completed. It showed suspected acute osteomyelitis of the medial malleolus and lateral talus. Unchanged right foot amputation. Unchanged deformity and fragmentation of the distal tibia, talus, medial malleolus, and lateral malleolus and subluxation of the ankle joint that could be due to neuropathic joint, old injury, chronic osteomyelitis, and/or postsurgical change. Osteoarthritis. Subcutaneous edema that may be due to cellulitis. No clear soft tissue abscesses seen. Mild Achilles tendinopathy. Mild tendinopathy and tenosynovitis of the medial ankle tendons. EXTERNAL RECORDS REVIEWED: I reviewed the patient's diabetic foot clinic notes as well as the previous ER visit note as summarized above. CHRONIC MEDICAL/SOCIAL CONDITIONS AFFECTING CARE: Poorly controlled diabetic with chronic ulcer of the foot. Charcot joint of the right foot. CONSULTATIONS: Dr. Alejo of podiatry. On-call hospitalist MDM SUMMARY: I examined the patient. The patient has a history of poorly controlled diabetes, a chronic foot ulcer, and Charcot foot that presents for worsening redness, swelling, and pain of the right ankle. The patient was seen in the ER on 12/29/2024 and was given IV Rocephin as well as a prescription for Bactrim and Keflex. However, the patient has not been getting any better. He has not had any fevers or discharge from the foot. The patient was advised to come to the ER by the diabetic foot clinic. An IV lock was placed and labs were drawn. The patient was given 500 mL normal saline solution bolus, Toradol 10 mg IV, morphine 4 mg IV, and Zofran 4 mg IV with some improvement of his pain. White blood cell count normal 8.30. Hemoglobin normal at 14.4. Platelet count normal at 181. Lactate is normal at 1.3. Procalcitonin normal. ESR elevated at 55 and increased from 45 on 12/29/2024. CRP elevated at 7.56 and increased from 3.97 on 12/29/2024. Sodium 133 and glucose 240, but CMP otherwise normal. Magnesium normal. I spoke with Dr. Alejo of podiatry who knows the patient. He recommended an MRI of the ankle without contrast to evaluate whether the symptoms were secondary to a true infection/osteomyelitis or possible reactivation of Charcot. He stated that if there was concern for osteomyelitis or infection he may need to take the patient to the OR for bone biopsy. He recommended to hold on antibiotics in the ER until the results of the MRI were received to determine if his symptoms were truly infectious in nature. He stated that he would consult on the patient for further management. I had a meaningful discussion about this patient with Dr. Wilson who agrees with my assessment and the treatment plan. I spoke with the on-call hospitalist who agreed to admit the patient for further evaluation and treatment. Please refer to their dictation for further details. The patient's care was transferred in stable condition. After the patient was admitted, I received the results of the MRI. I messaged both the on-call hospitalist as well as Dr. Alejo via secure [employer] text to let them know the results of the MRI had been resulted. DIAGNOSIS: Right ankle redness, swelling, and pain likely secondary to infection versus osteomyelitis versus Charcot reactivation Past Med/Surg History Problem List (Updated 01/01/25 @ 18:35 by Filomena Burrell PA-C) Erythema of joint (Acute) Pain and swelling of right ankle (Acute) Diabetes (Acute) Cellulitis of right foot (Acute) Loss of protective sensation of skin of deformed foot Hypertension (Chronic) Tachycardia Poorly controlled type 2 diabetes mellitus Personal history of diabetic foot ulcer Charcot's joint of foot in type 2 diabetes mellitus (Acute) Abnormal ankle brachial index Hyperthyroidism (Chronic) Diabetic peripheral neuropathy associated with type 2 diabetes mellitus (Chronic) Status post partial amputation of foot (Chronic) Smoking (Chronic) Dyslipidemia (Chronic) Obesity, morbid, BMI 40.0-49.9 (Chronic) Vitamin D deficiency (Chronic) Medical History Hx of diabetes mellitus History of acute renal failure Graves disease Surgical History H/O fasciotomy H/O foot surgery Amputation- right toes Family History Mother Diabetes Social History Smoking Status: Former smoker Tobacco Type: Cigars packs per day: 1; Cigarettes Per Day: 20; Hx Alcohol Use: No Hx Substance Use: No Preferred Language: Azeri Communication Ability: Effective Visual Impairment: No Limitations Hearing Ability: Normal Senior Patrol Agent Required: No Beliefs That Will Affect Care: None marital status: / Current Living Situation: Family and Significant Other Current Living Situation Comment: LIVES WITH GIRLFRIEND AND PT'S MOTHER 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al status: unemployed and disabled 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: "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" How many Children do You have: 2 How many Children do You have Comment: Children are not involved with care much, girlfriend also able to assist as needed. Feels Safe at Home: Yes Diet: regular caffeine: Yes (Consumes on average 1 cup of regular coffee per day ) during the past year weight has: remained stable Physical Activity Frequency Comment: Rarely Assistive Devices: None Allergies Allergies Allergy/AdvReac Type Severity Reaction Status Date / Time No Known Allergies Allergy Verified 12/30/24 01:33 Home Meds Home Medications Medication Instructions Recorded Confirmed insulin aspart U-100 100 unit/mL 25 unit subcut TID 12/30/24 01/01/25 (3 mL) subcutaneous pen (Novolog FlexPen U-100 Insulin aspart) semaglutide 2 mg/dose (8 mg/3 mL) 2 mg subcut WK 12/30/24 01/01/25 subcutaneous pen injector Previous Rx's Medication Instructions Recorded lancets 30 gauge (Quick Hanguch Delica #300 ea 06/05/20 Lancets) blood sugar diagnostic #300 ea 08/26/21 flash glucose scanning reader #1 ea 09/08/22 (FreeStyle Alex 2 [place]) insulin glargine 100 unit/mL (3 50 unit (0.5 mL) subcut BID 90 01/04/24 mL) subcutaneous pen (Lantus days #90 mL Solostar U-100 Insulin) cholecalciferol (vitamin D3) 125 125 mcg PO Q OTHER DAY 90 days #45 04/26/24 mcg (5,000 unit) capsule caps ezetimibe 10 mg tablet 10 mg PO DAILY #30 tabs 07/05/24 flash glucose sensor (FreeStyle #6 ea 08/23/24 Alex 2 Sensor kit) lisinopril 40 mg tablet 40 mg PO DAILY #90 tabs 08/29/24 pen needle, diabetic 32 gauge x #400 ea 08/29/24" fenofibrate 54 mg tablet 54 mg PO DAILY #90 tabs 10/25/24 methimazole 5 mg tablet 5 mg PO DAILY #30 tabs 10/25/24 gabapentin 800 mg tablet 800 mg PO TID 90 days #270 tabs 11/06/24 rosuvastatin 40 mg tablet 40 mg PO DAILY #90 tabs 12/21/24 cephalexin 500 mg capsule 500 mg PO TID 10 days #30 caps 12/30/24 sulfamethoxazole 800 1 tab PO BID 10 days #20 tabs 12/30/24 mg-trimethoprim 160 mg tablet (Bactrim DS) Results & Data (ED) Vital Signs Vital Signs - 24 hr 01/01/25 12:49 01/01/25 13:11 01/01/25 14:42 Temperature 36.5 C Temperature Source Temporal Artery Scan Pulse Rate 102 H 99 H 82 Pulse Rate from SpO2 Sensor 83 Respiratory Rate 17 21 Respiratory Effort / Characteristics Non-Labored Spontaneous Respiratory Depth Normal Respiratory Pattern Regular Blood Pressure 108/71 Blood Pressure Mean 83 Pulse Oximetry 94 92 Oxygen Delivery Method Room Air Room Air Sepsis Recent Fever Within 48 Hours No Sepsis New/Unexplained Change in Mental Status No Sepsis Action Taken by Nursing No Action Required 01/01/25 14:53 Temperature Temperature Source Pulse Rate Pulse Rate from SpO2 Sensor Respiratory Rate Respiratory Effort / Characteristics Respiratory Depth Normal Respiratory Pattern Blood Pressure Blood Pressure Mean Pulse Oximetry Oxygen Delivery Method Sepsis Recent Fever Within 48 Hours Sepsis New/Unexplained Change in Mental Status Sepsis Action Taken by Nursing Laboratory Data 01/01/25 13:19 01/01/25 13:19 Lab Results 01/01/25 Range/Units 13:19 WBC 8.30 (4.8-10.8) K/ul RBC 5.54 (4.70-6.10) M/uL Hgb 14.4 (14.0-18.0) g/dL Hct 42.6 (42.0-52.0) % MCV 76.9 L (80.0-100.0) fL MCH 26.0 (25.0-34.0) pg MCHC 33.8 (32.0-36.0) g/dL RDW Std Deviation 37.3 (36.4-46.3) fL RDW Coeff of Alondra 13.4 (11.5-14.5) % Plt Count 181 (130-400) K/uL MPV 12.3 (9.4-12.4) fL Immature Gran % (Auto) 0.2 % Neut % (Auto) 73.7 % Lymph % (Auto) 15.5 % [place] % (Auto) 7.8 % Eos % (Auto) 1.8 % Baso % (Auto) 1.0 % Neut # (Auto) 6.11 (1.40-6.50) K/uL Lymph # (Auto) 1.29 (1.20-3.40) K/uL [place] # (Auto) 0.65 H (0.11-0.59) K/uL Eos # (Auto) 0.15 (0.00-0.50) K/uL Baso # (Auto) 0.08 (0.00-0.20) K/uL Immature Gran # (Auto) 0.02 (0.01-0.20) K/uL ESR 55 H (0-20) mm/hr Sodium 133 L (136-145) mmol/L Potassium 4.3 (3.5-5.1) mmol/L Chloride 103 (98-107) mmol/L Carbon Dioxide 24 (21-32) mmol/L Anion Gap 6 (3-11) BUN 16 (6-23) mg/dl Creatinine 1.09 (0.6-1.4) mg/dl Est Cr Clr Drug Dosing 115.0 ml/min eGFR 80.15 BUN/Creatinine Ratio 14.7 (10-20) Glucose 240 H (70-99(Fasting)) mg/dl Lactate 1.3 (0.4-2.0) mmol/L Calcium 8.7 (8.6-10.3) mg/dl Magnesium 1.8 (1.7-2.4) mg/dl Total Bilirubin 0.6 (0.2-1.0) mg/dl AST 15 (13-39) U/L ALT 12 (7-52) U/L Alkaline Phosphatase 54 (34-104) U/L C-Reactive Protein 7.56 H (0-0.5) mg/dl Total Protein 6.9 (6.0-8.3) gm/dl Albumin 3.7 (3.4-5.0) gm/dl Globulin 3.2 (2.5-4.0) gm/dl Albumin/Globulin Ratio 1.2 (0.9-2) Procalcitonin 0.07 (0-0.5) ng/ml Administered Medications Discontinued Medications Sodium Chloride (Nss) 500 mls @ 999 mls/hr IV .Q31M ONE Stop: 01/01/25 13:38 Last Infusion: 01/01/25 13:53 Dose: Infused Documented By: Admin: 01/01/25 13:20 Dose: 999 mls/hr Documented By: Ketorolac Tromethamine (Ketorolac Tromethamine 15 Mg/Ml Vial) 10 mg IV NOW ONE Stop: 01/01/25 13:09 Last Admin: 01/01/25 13:20 Dose: 10 mg Documented By: G Morphine Sulfate (Morphine Sulfate 4 Mg/Ml 1 Ml Carp\\Vial) 4 mg IV NOW STA Stop: 01/01/25 13:41 Last Admin: 01/01/25 13:45 Dose: 4 mg Documented By: Ondansetron HCl (Ondansetron Inj 2 Mg/Ml 2 Ml Vial) 4 mg IV NOW STA Stop: 01/01/25 13:41 Last Admin: 01/01/25 13:45 Dose: 4 mg Documented By: Imaging Data Radiologist's Impression: Ankle MRI 01/01/25 13:36 Clinical History: Redness and swelling Technique: Multiple T1 and T2 magnetic resonance images were obtained of the right ankle without gadolinium contrast. Comparison is made to the prior MRI dated 03/10/2023 and the radiographs dated 12/29/2024 Findings: Again seen is amputation of the foot at the level of the metatarsal bases. Again seen is a fixation screw within the cuboid, resulting in surrounding artifact. There is no definite change in deformity and fragmentation of the distal tibial metaphysis, the talus, the medial malleolus, and the lateral malleolus. Again seen is osteoarthritis of the ankle joint, the subtalar joint, and throughout the midfoot. Again seen is subluxation of the ankle joint. There is unchanged 2 cm lesion of low T1 and peripheral high T2 signal intensity in the posterior superior calcaneus. There is bone marrow edema and apparent cortical destruction involving the residual medial malleolus and the medial aspect of the talus. There is mild tendinopathy and tenosynovitis of the posterior tibialis, flexor digitorum longus, and flexor halluces longus. The lateral and anterior ankle tendons all appear intact without apparent tendinopathy, tenosynovitis, or tear. The anterior and posterior talofibular and tibiofibular ligaments appear to be intact. The deltoid ligament and calcaneofibular ligament appear intact also. There is mild Achilles tendinopathy without tear. There is diffuse subcutaneous edema that may be due to cellulitis. Impression: 1. Suspected acute osteomyelitis of the medial malleolus and lateral talus 2. Unchanged right foot amputation 3. Unchanged deformity and fragmentation of the distal tibia, talus, medial malleolus, and lateral malleolus and subluxation of the ankle joint that could be due to neuropathic joint, old injury, chronic osteomyelitis, and/or postsurgical change 4. Osteoarthritis 5. Subcutaneous edema that may be due to cellulitis. No clear soft tissue abscess is seen 6. Mild Achilles tendinopathy 7. Mild tendinopathy and tenosynovitis of the medial ankle tendons ACT 112: Positive. There are findings on this exam that require communication between the performing entity and the patient following Patient Test Result Information Act ([place] ACT 112) guidelines. Electronically signed by Lance Massey 01-01-2025 5:53 PM Discharge Plan Visit Data Chief Complaint: Ankle Pain Stated Complaint: RIGHT ANKLE ED Provider: Homer Wilson ED Midlevel Provider: Filomena Burrell Discharge Problem: Pain and swelling of right ankle, Charcot's joint of foot in type 2 diabetes mellitus, Erythema of joint Patient Disposition: Admitted As Inpatient Condition: Fair Discharge Instructions Interventions: ED Discharge Assessment Last Done: 01/01/25 17:27
[2025-01-01] MEDS: SODIUM CHLORIDE 0.9% 500 ML IV ONE (13:20)
[2025-01-01] MEDS: KETOROLAC TROMETHAMINE 15 MG/ML VIAL IV ONE (13:20)
[2025-01-01 13:31] LABS: Hematocrit (blood only) 42.6 % (42.0-52.0); Hemoglobin 14.4 g/dL (14.0-18.0); Immature Granulocytes # (auto) 0.02 K/uL (0.01-0.20); Immature Granulocytes % (auto) 0.2 %; Mean Corpuscular Hemoglobin 26.0 pg (25.0-34.0); Mean Corpuscular Volume 76.9 fL (80.0-100.0); Platelet Count 181 K/uL (130-400); RDW Standard Deviation 37.3 fL (36.4-46.3); Red Blood Count 5.54 M/uL (4.70-6.10); White Blood Count 8.30 K/ul (4.8-10.8)
[2025-01-01] MEDS: MoRPHine SULFATE 4 MG/ML 1 ML CARP\\VIAL IV STA (13:45)
[2025-01-01] MEDS: ONDANSETRON INJ 2 MG/ML 2 ML VIAL IV STA (13:45)
[2025-01-01 13:56] LABS: Alanine Aminotransferase 12.0 U/L (7-52); Albumin Globulin Ratio 1.2 (0.9-2); Albumin Level 3.7 gm/dl (3.4-5.0); Alkaline Phosphatase 54.0 U/L (34-104); Anion Gap 6.0 (3-11); Bilirubin,Total 0.6 mg/dl (0.2-1.0); Blood Urea Nitrogen 16.0 mg/dl (6-23); Calcium 8.7 mg/dl (8.6-10.3); Carbon Dioxide 24.0 mmol/L (21-32); Chloride 103.0 mmol/L (98-107); Creatinine Clr Calc Pharmacy 115.0 ml/min; Globulin 3.2 gm/dl (2.5-4.0); Glucose 240.0 mg/dl (70-99(Fasting)); Magnesium 1.8 mg/dl (1.7-2.4); Potassium 4.3 mmol/L (3.5-5.1); Sodium 133.0 mmol/L (136-145); Total Protein 6.9 gm/dl (6.0-8.3)
--- NOTE | 2025-01-01 13:58 | History & Physical Report ---
Date of Service January 01, 2025 Assessment & Plan (1) Pain and swelling of right ankle: (2) Diabetes: (3) Diabetic peripheral neuropathy associated with type 2 diabetes mellitus: (4) Charcot's joint of foot in type 2 diabetes mellitus: (5) Poorly controlled type 2 diabetes mellitus: Plan Pt is a 54 M with a PMHx significant for T2DM w/ peripheral neuropathy + Charcot's to R ankle + s/p amputation of R foot toes, HTN, Hyperthyroidism, Dyslipidemia, Vit D deficiency, and morbid obesity who presented to the ED c/o worsening Rt ankle erythema and Pain x4days #Rt ankle pain - R/O Charcot vs Joint Infection vs OM; Pain over medial ankle into R heel -Podiatry Consulted; following, plans to see pt 01/01 in afternoon, per ED provider; Dr Alejo notified of MRI results per nursing -Ice to affected area PRN -Tylenol prn mild/mod pain; Ibuprofen prn mild/mod pain; Oxycodone prn mod/severe pain -CBC, CMP, Procal, CRP, ESR in AM #T2DM | Peripheral Neuropathy | Charcot's Joint R ankle | S/P amputation of toes R foot - poorly controlled diabetic; Last A1C 8.2 06/30/2024 -HOLD Semaglutide -Glargine 50u BID -SSI w/ BSG range 100-150; CF 10; CR 5 -HbA1C in AM #HTN | HLD - no acute concerns -Lisinopril 40mg PO daily -Ezetimibe 10mg daily, fenofibrate 54mg po daily, Statin 40mg daily #Hyperthyroidism - no acute concerns -Methimazole 5mg PO daily #Vit D Deficiency - no acute concerns -Cholecalciferol 125mcg daily #Morbid Obesity | BMI >40 - no acute concerns -Encourage diet/weight management #Current Tobacco Use - Pt states that he smokes cigars occasionally; D/C cigarettes 5mos [employer], per pt -Pt states he is not interested in nicotine replacement therapy VTE Proph: Cesar Clements Dispo: Admit Med Surg Code Status: FULL CODE - discussed with pt History of Present Illness Chief Complaint: Worsening Rt ankle pain & Erythema Primary Care Provider: Lisandro Diaz Capp, Pt is a 54 M with a PMHx significant for T2DM w/ peripheral neuropathy + Charcot's to R ankle + s/p amputation of R foot toes, HTN, Hyperthyroidism, Dyslipidemia, Vit D deficiency, and morbid obesity who presented to the ED c/o worsening Rt ankle erythema and Pain. Pt states that he initially noticed pain 4 days [employer] in the evening. He notes that the pain continued to worsen over that night which resulted in him coming to [facility] ED on 12/29 where he was given IV abx; uric acid at that time was negative. Pt was offered inpatient stay but declined and was d/c home with a rx for [place], Bactrim and Keflex. Pt notes that his pain had improved significantly on 12/30 but then noticed worsening pain & erythema on 12/31. Pt notes that it became extremely painful to bear weight on the joint and notes that it is now painful for him to move the ankle. Pt attended his DM foot care appt this AM and states that it was recommended for him to come back to the ED with his worsening pain. Pt tried [place], Tylenol, and Ibuprofen w/ good relief. Pt states that he also would place ice on the joint with good relief of sx. Pt admits to difficulty sleeping secondary to pain and an episode of diarrhea after starting his home medications. Pt denies H/A, congestion, sore throat, cough, SOB, CP, palpitations, N/V, and changes in appetite. Pt was seen in ED 12/29 where a Uric Acid was negative. Pt was transported to the ED via . While in the ED, the patient received Toradol and IV Morphine. Pt is being admitted for further evaluation and care. Allergies Allergy/AdvReac Type Severity Reaction Status Date / Time No Known Allergies Allergy Verified 12/30/24 01:33 Home Medications Medication Instructions Recorded Confirmed Type lancets 30 gauge ([employer]Touch [employer] #300 ea 06/05/20 12/30/23 Rx Lancets) blood sugar diagnostic #300 ea 08/26/21 12/30/23 Rx flash glucose scanning reader #1 ea 09/08/22 12/30/23 Rx (FreeStyle Alex 2 [place]) insulin glargine 100 unit/mL (3 50 unit (0.5 mL) subcut BID 90 01/04/24 01/01/25 Rx mL) subcutaneous pen (Lantus days #90 mL Solostar U-100 Insulin) cholecalciferol (vitamin D3) 125 125 mcg PO Q OTHER DAY 90 days #45 04/26/24 01/01/25 Rx mcg (5,000 unit) capsule caps ezetimibe 10 mg tablet 10 mg PO DAILY #30 tabs 07/05/24 01/01/25 Rx flash glucose sensor (FreeStyle #6 ea 08/23/24 Rx Alex 2 Sensor kit) lisinopril 40 mg tablet 40 mg PO DAILY #90 tabs 08/29/24 01/01/25 Rx pen needle, diabetic 32 gauge x #400 ea 08/29/24 Rx 5/32" fenofibrate 54 mg tablet 54 mg PO DAILY #90 tabs 10/25/24 01/01/25 Rx methimazole 5 mg tablet 5 mg PO DAILY #30 tabs 10/25/24 01/01/25 Rx gabapentin 800 mg tablet 800 mg PO TID 90 days #270 tabs 11/06/24 01/01/25 Rx rosuvastatin 40 mg tablet 40 mg PO DAILY #90 tabs 12/21/24 01/01/25 Rx cephalexin 500 mg capsule 500 mg PO TID 10 days #30 caps 12/30/24 01/01/25 Rx insulin aspart U-100 100 unit/mL 25 unit subcut TID 12/30/24 01/01/25 History (3 mL) subcutaneous pen (Novolog FlexPen U-100 Insulin aspart) semaglutide 2 mg/dose (8 mg/3 mL) 2 mg subcut WK 12/30/24 01/01/25 History subcutaneous pen injector sulfamethoxazole 800 1 tab PO BID 10 days #20 tabs 12/30/24 01/01/25 Rx mg-trimethoprim 160 mg tablet (Bactrim DS) Past Med/Surg History Problem List (Updated 01/01/25 @ 18:35 by Filomena Burrell PA-C) Erythema of joint (Acute) Pain and swelling of right ankle (Acute) Diabetes (Acute) Cellulitis of right foot (Acute) Loss of protective sensation of skin of deformed foot Hypertension (Chronic) Tachycardia Poorly controlled type 2 diabetes mellitus Personal history of diabetic foot ulcer Charcot's joint of foot in type 2 diabetes mellitus (Acute) Abnormal ankle brachial index Hyperthyroidism (Chronic) Diabetic peripheral neuropathy associated with type 2 diabetes mellitus (Chronic) Status post partial amputation of foot (Chronic) Smoking (Chronic) Dyslipidemia (Chronic) Obesity, morbid, BMI 40.0-49.9 (Chronic) Vitamin D deficiency (Chronic) Medical History Hx of diabetes mellitus History of acute renal failure Graves disease Surgical History H/O fasciotomy H/O foot surgery Amputation- right toes Family History Mother Diabetes Social History Smoking Status: Former smoker Tobacco Type: Cigars packs per day: 1; Cigarettes Per Day: 20; Hx Alcohol Use: No Hx Substance Use: No Preferred Language: Yi Communication Ability: Effective Visual Impairment: No Limitations Hearing Ability: Normal 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 Feels Safe at Home: Yes Diet: regular caffeine: Yes (Consumes on average 1 cup of regular coffee per day ) during the past year weight has: remained stable Physical Activity Frequency Comment: Rarely Assistive Devices: None Review of Systems Review of Systems: All systems reviewed & are unremarkable except as noted in Subjective Physical Exam Physical Exam: General: Pt is a 54 y/o Morbidly Obese M in NAD in bed. VS: reviewed - remarkable for tachycardia Skin: Mostly healed ulceration seen on lateral aspect of distal/lateral R foot, wound is without erythema, drainage, or pain to palpation; Skin is otherwise warm, dry and intact. Respiratory: CTA bilat, no adventitious sounds noted. Chest expansion is full and symmetrical Cardio: RRR no murmurs Abdomen: Round, normoactive BS x4, nontender to palpation MSK: R foot is w/out any toes; pain to palpation/erythema noted over Rt Medial ankle, pain extends down into heel; pt denies pain at distal aspect of foot, no pain to palpation of ulceration; FROM of extremities othewise Extremities: no edema Neuro: A&Ox4, cooperative Results & Data Results & Data Vital Signs (Past 12 Hours) Vital Signs Temp Pulse Resp BP Pulse Ox O2 Del Method 01/01/25 13:11 99 H 01/01/25 12:49 97.7 F 102 H 17 108/71 94 Room Air Laboratory Results Reviewed: CBC, CMP, Calcium, Magnesium, CRP, Procalcitonin, Diagnostic Findings Reviewed: Xray R foot/ankle, MRI R ankle PG Care Time/CCT Total # of Minutes Spent Total Time Spent with Patient: Total time spent is greater than 50% in coordination of care (as documented) at patient's floor/unit and/or counseling patient: Coding Level of Care Code 62980 INT INP/OBS CARE 3/75MIN Diagnoses Pain and swelling of right ankle M25.571; M25.471 Diabetes E11.9 Diabetic peripheral neuropathy associated with type 2 diabetes mellitus E11.42 Charcot's joint of foot in type 2 diabetes mellitus E11.610 Poorly controlled type 2 diabetes mellitus E11.65
[2025-01-01] MEDS ORDERED: ACETAMINOPHEN 325 MG TAB PO PRN (17:27)
[2025-01-01] MEDS ORDERED: DEXTROSE 50% 50 ML SYRINGE IV PRN (17:27)
[2025-01-01] MEDS ORDERED: MELATONIN 3 MG TAB PO PRN (17:27)
[2025-01-01] MEDS ORDERED: GLUCOSE 40% GEL 15 GM TUBE PO PRN (17:27)
[2025-01-01] MEDS ORDERED: ONDANSETRON INJ 2 MG/ML 2 ML VIAL IV PRN (17:27)
[2025-01-01] MEDS ORDERED: GLUCAGON FOR INJ 1 MG VIAL SQ PRN (17:27)
[2025-01-01] MEDS ORDERED: IBUPROFEN 200 MG TAB PO PRN (17:27)
[2025-01-01] MEDS ORDERED: GLUCOSE 10 TAB/TUBE PO PRN (17:27)
[2025-01-01] MEDS ORDERED: POLYETHYLENE (MIRALAX) 17 GM PACK PO PRN (17:27)
[2025-01-01] MEDS ORDERED: CARBOHYDRATES FOR HYPOGLYCEMIA PO PRN (17:27)
--- NOTE | 2025-01-01 17:54 | Magnetic Resonance Report ---
Clinical History: Redness and swelling Technique: Multiple T1 and T2 magnetic resonance images were obtained of the right ankle without gadolinium contrast. Comparison is made to the prior MRI dated 03/10/2023 and the radiographs dated 12/29/2024 Findings: Again seen is amputation of the foot at the level of the metatarsal bases. Again seen is a fixation screw within the cuboid, resulting in surrounding artifact. There is no definite change in deformity and fragmentation of the distal tibial metaphysis, the talus, the medial malleolus, and the lateral malleolus. Again seen is osteoarthritis of the ankle joint, the subtalar joint, and throughout the midfoot. Again seen is subluxation of the ankle joint. There is unchanged 2 cm lesion of low T1 and peripheral high T2 signal intensity in the posterior superior calcaneus. There is bone marrow edema and apparent cortical destruction involving the residual medial malleolus and the medial aspect of the talus. There is mild tendinopathy and tenosynovitis of the posterior tibialis, flexor digitorum longus, and flexor halluces longus. The lateral and anterior ankle tendons all appear intact without apparent tendinopathy, tenosynovitis, or tear. The anterior and posterior talofibular and tibiofibular ligaments appear to be intact. The deltoid ligament and calcaneofibular ligament appear intact also. There is mild Achilles tendinopathy without tear. There is diffuse subcutaneous edema that may be due to cellulitis. Impression: 1. Suspected acute osteomyelitis of the medial malleolus and lateral talus 2. Unchanged right foot amputation 3. Unchanged deformity and fragmentation of the distal tibia, talus, medial malleolus, and lateral malleolus and subluxation of the ankle joint that could be due to neuropathic joint, old injury, chronic osteomyelitis, and/or postsurgical change 4. Osteoarthritis 5. Subcutaneous edema that may be due to cellulitis. No clear soft tissue abscess is seen 6. Mild Achilles tendinopathy 7. Mild tendinopathy and tenosynovitis of the medial ankle tendons ACT 112: Positive. There are findings on this exam that require communication between the performing entity and the patient following Patient Test Result Information Act ([place] ACT 112) guidelines. Electronically signed by Lance Massey 01-01-2025 5:53 PM
--- NOTE | 2025-01-01 18:33 | Emergency Department Note ---
ED Visit Note ED Physician Supervisory Note & Attestation: I was consulted by the Advanced Practice Provider, Filomena Burrell PA-C. I personally made/approved the management plan and take responsibility for the patient management. I performed a substantive portion of the visit. This includes the aspects of: MDM: right ankle swelling erythema with infection/surgical history on that lower extremity. Requires admission for further work-up and management along with evidence of osteomyelitis on MRI. Homer Wilson MD
[2025-01-01] MEDS: INSULIN ASPART PER UNIT CHARGE SC SCH (18:54)
[2025-01-01] MEDS: ENOXAPARIN INJ 40 MG/0.4 ML SYR SQ SCH (21:45)
[2025-01-01] MEDS: SULFAMETHOXAZOLE/TRIMETHOPRIM DS 800/160MG TAB PO SCH (21:46)
[2025-01-01] MEDS: GABAPENTIN 800 MG TAB PO SCH (21:46)
[2025-01-01] MEDS: LANTUS PER UNIT CHARGE SQ SCH (22:03)
[2025-01-02] MEDS: ACETAMINOPHEN 1,000 MG/100 ML VIAL IV STA (03:53)
[2025-01-02] MEDS: ACETAMINOPHEN 1000 MG/100 ML IV IV ONE (03:55)
[2025-01-02] MEDS: HYDROmorphone INJ 0.5 MG/0.5 ML SYR IV STA (04:14)
[2025-01-02] MEDS: ADVANCED PROBIOTIC 625 MG CAPSULE PO SCH (06:20)
--- NOTE | 2025-01-02 06:53 | Podiatry Consultation ---
Date of Consultation January 02, 2025 Assessment & Plan (1) Charcot joint of right ankle: (2) Pain and swelling of right ankle: (3) Erythema of joint: (4) Loss of protective sensation of skin of deformed foot: (5) Poorly controlled type 2 diabetes mellitus: (6) Charcot's joint of foot in type 2 diabetes mellitus: (7) Diabetic peripheral neuropathy associated with type 2 diabetes mellitus: (8) Status post partial amputation of foot: Laterality: right Qualified Code(s): Z89.431 - Acquired absence of right foot Plan Clinical evaluation, review of imaging and laboratory results favor a diagnosis of reactivated Charcot neuroarthropathy over septic ankle with adjacent osteomyelitis. - MRI results reviewed suggesting possible acute osteomyelitis of the medial malleolus and lateral talus. Clinically erythema and edema have reduced since time of admission with elevation without antibiotic therapy. There is no signs of abrasion or breakdown in the skin locally as a source of infection. - Laboratory results reviewed with white blood count within normal limits, ESR elevated at 55, CRP elevated 6.09, procalcitonin 0.04. Lab results are nonspecific but favor diagnosis of Charcot neuroarthropathy. Lengthy discussion with patient regarding management of recurrent Charcot neuroarthropathy of a deformed foot and ankle. Explained that conservative treatment would include returning to a total contact cast for likely several months followed by transition into [place] walker indefinitely at all times while weightbearing versus below the knee amputation which would likely be a more functional extremity for the patient. Following lengthy discussion regarding treatment options patient would like to resume total contact casting when possible to manage active Charcot neuroarthropathy process. Plan to continue to monitor patient's progress over the next 24 hours with reevaluation of lab work and clinical appearance. He has shown marked improvement with decreased erythema and edema as well as pain to the medial ankle over the past 24 hours. Should patient's condition continue to improve with rest and elevation of the limb to monitor closely as an outpatient as patient remains nonweightbearing to the right lower extremity or in total contact cast for weightbearing. History of Present Illness Reason for Consultation: Painful, red, hot, swollen right ankle Attending Physician: Steve Yusuf MD History of Present Illness 54-year-old male with past medical history significant for type 2 diabetes with diabetic peripheral neuropathy, Charcot neuroarthropathy of the right foot and ankle, history of transmetatarsal amputation for management of osteomyelitis, hypertension, hypothyroidism, hyperlipidemia, vitamin D deficiency, morbid obesity. Presents to the emergency department at [facility] with increased redness swelling and pain to the right ankle. Patient followed up with the diabetic foot clinic 12/13/2024 with superficial abrasion to the lateral right ankle and preulcerative lesion to the right foot subfifth metatarsal remnant. He continued use of his [place] walker for offloading at all times while ambulating. He reported to the emergency department on 12/10 with increased pain and swelling to the right ankle concern for possible infection. X-ray of the right ankle 12/30/2024 with no significant interval changes from previous plain film radiographs. He received IV Rocephin in the emergency department and was discharged to home on p.o. Bactrim and Keflex. Following discharge from the emergency room he reports some immediate relief of symptoms however pain is returned and redness and swelling persist to the right ankle. Patient followed up with diabetic foot team 01/01/2025 noting increased pain to the ankle. Encouraged to report to the emergency department for further evaluation. Presents to [facility] emergency department 11 06/01/2024. Plain film radiographs 12/29/2024 showing subtle cortical irregularity adjacent to broken hardware the residual fifth metatarsal base. MRI of the right ankle 01/01/2025 with concern for acute osteomyelitis to the medial talus and medial malleolus. ESR 55, CRP 7.5, procalcitonin 0.07, lactate 1.3, WBC 8.3. Patient denies nausea, vomiting, fever, chills, shortness of breath, chest pain. Allergies Allergy/AdvReac Type Severity Reaction Status Date / Time No Known Allergies Allergy Verified 12/30/24 01:33 Home Medications Medication Instructions Recorded Confirmed Type lancets 30 gauge ([facility] [place] #300 ea 06/05/20 12/30/23 Rx Lancets) blood sugar diagnostic #300 ea 08/26/21 12/30/23 Rx flash glucose scanning reader #1 ea 09/08/22 12/30/23 Rx (FreeStyle Alex 2 [place]) insulin glargine 100 unit/mL (3 50 unit (0.5 mL) subcut BID 90 01/04/24 01/01/25 Rx mL) subcutaneous pen (Lantus days #90 mL Solostar U-100 Insulin) cholecalciferol (vitamin D3) 125 125 mcg PO Q OTHER DAY 90 days #45 04/26/24 01/01/25 Rx mcg (5,000 unit) capsule caps ezetimibe 10 mg tablet 10 mg PO DAILY #30 tabs 07/05/24 01/01/25 Rx flash glucose sensor (FreeStyle #6 ea 08/23/24 Rx Alex 2 Sensor kit) lisinopril 40 mg tablet 40 mg PO DAILY #90 tabs 08/29/24 01/01/25 Rx pen needle, diabetic 32 gauge x #400 ea 08/29/24 Rx 5/32" fenofibrate 54 mg tablet 54 mg PO DAILY #90 tabs 10/25/24 01/01/25 Rx methimazole 5 mg tablet 5 mg PO DAILY #30 tabs 10/25/24 01/01/25 Rx gabapentin 800 mg tablet 800 mg PO TID 90 days #270 tabs 11/06/24 01/01/25 Rx rosuvastatin 40 mg tablet 40 mg PO DAILY #90 tabs 12/21/24 01/01/25 Rx cephalexin 500 mg capsule 500 mg PO TID 10 days #30 caps 12/30/24 01/01/25 Rx insulin aspart U-100 100 unit/mL 25 unit subcut TID 12/30/24 01/01/25 History (3 mL) subcutaneous pen (Novolog FlexPen U-100 Insulin aspart) semaglutide 2 mg/dose (8 mg/3 mL) 2 mg subcut WK 12/30/24 01/01/25 History subcutaneous pen injector sulfamethoxazole 800 1 tab PO BID 10 days #20 tabs 12/30/24 01/01/25 Rx mg-trimethoprim 160 mg tablet (Bactrim DS) Patient History Medical History Hx of diabetes mellitus History of acute renal failure Graves disease Surgical History H/O fasciotomy H/O foot surgery Amputation- right toes Family History Mother Diabetes Social History Smoking Status: Current some day smoker Tobacco Type: Cigarettes and Cigars packs per day: 1; Cigarettes Per Day: 20; Second Hand Exposure: Yes; Do You Dip or Chew Tobacco: No; Tobacco Cessation Education Requested by Patient: No Hx Alcohol Use: Yes Alcohol type: beer Hx Substance Use: Yes (medical marijuana card) Last Used Substance: Days (ago) Preferred Language: Bulgarian Communication Ability: Effective Visual Impairment: No Limitations Hearing Ability: Normal Senior Advisory Required: No Beliefs That Will Affect Care: None marital status: / Current Living Situation: Significant Other Current Living Situation Comment: LIVES WITH GIRLFRIEND AND PT'S MOTHER 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al status: unemployed and disabled 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: "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" How many Children do You have: 2 How many Children do You have Comment: Children are not involved with care much, girlfriend also able to assist as needed. Other Information That Helps Us Care for You: No Feels Safe at Home: Yes Safety Concerns: Feels Safe At This Time Diet: regular caffeine: Yes (Consumes on average 1 cup of regular coffee per day ) during the past year weight has: remained stable Physical Activity Frequency Comment: Rarely Assistive Devices: Scooter/Electric Scooter Review of Systems Review of Systems: Denies nausea, vomiting, fever, chills, shortness of breath, chest pain. Physical Exam Physical Exam: Const: General: 54-year-old male with a history of transmetatarsal amputation on the right foot. Appears well and in no acute distress.Appears well developed and well nourished. CV: Extremities: Capillary refill time is less than 2 seconds all digits of the bilateral foot. Posterior tibial and dorsalis pedis pulses are palpable bilateral. Lymph: No palpable or visible regional lymphadenopathy. Skin: Well-healed cicatrix from transmetatarsal amputation. Preulcerative lesion lateral aspect of the fifth metatarsal remnant right foot. Neuro: Loss of protective sensation bilateral foot status with [place] Deb 5.0 7 monofilament. Psych: Mood/Affect: Mood is normal. Affect is normal. Cognition: Orientation is intact to person, place and time. Focused lower extremity musculoskeletal exam: Leg: No pain with compression of the calf muscle. Ankles: Normal to inspection and palpation. No swelling bilaterally. No tenderness bilaterally.Motor strength is intact. Feet: - Integumentary: Blood-tinged hyperkerat otic lesion and location of previous ulceration at the lateral aspect of the right foot overlying the fifth metatarsal remnant and site of fractured hardware. No signs of local soft tissue infection in this location. Hyperkeratotic lesion is reduced with no underlying wound. - Musculoskeletal: - Gait: Ambulates with [place] walker on the right foot and diabetic shoe with molded insert on the left foot. 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 Status post transmetatarsal amputation well-healed no signs of local soft tissue infection. Erythema and edema surrounding the medial aspect of the right ankle. Mild discomfort to palpation right medial ankle. Results & Data Vital Signs (Past 12 Hours) Vital Signs Temp Pulse Resp BP Pulse Ox O2 Del Method 01/01/25 22:55 36.3 C L 80 18 168/89 H 99 Room Air PG Care Time/CCT Total # of Minutes Spent Total Time Spent with Patient: Total time spent is greater than 50% in coordination of care (as documented) at patient's floor/unit and/or counseling patient: Coding Level of Care Code 45116 INT INP/OBS CARE 3/75MIN Diagnoses Charcot joint of right ankle M14.671 Pain and swelling of right ankle M25.571; M25.471 Erythema of joint L53.9 Loss of protective sensation of skin of deformed foot M21.969; R20.8 Poorly controlled type 2 diabetes mellitus E11.65 Charcot's joint of foot in type 2 diabetes mellitus E11.610 Diabetic peripheral neuropathy associated with type 2 diabetes mellitus E11.42 Status post partial amputation of foot Z89.431 Laterality: right
[2025-01-02 07:28] LABS: Hematocrit (blood only) 40.4 % (42.0-52.0); Hemoglobin 13.5 g/dL (14.0-18.0); Immature Granulocytes # (auto) 0.02 K/uL (0.01-0.20); Immature Granulocytes % (auto) 0.3 %; Mean Corpuscular Hemoglobin 26.1 pg (25.0-34.0); Mean Corpuscular Volume 78.0 fL (80.0-100.0); Platelet Count 165 K/uL (130-400); RDW Standard Deviation 38.3 fL (36.4-46.3); Red Blood Count 5.18 M/uL (4.70-6.10); White Blood Count 6.17 K/ul (4.8-10.8)
[2025-01-02 07:41] VITALS: O2SAT 96
[2025-01-02 07:42] LABS: Hemoglobin A1C 8.9 % (4.5-5.6)
[2025-01-02 07:52] LABS: Anion Gap 5.0 (3-11); Blood Urea Nitrogen 17.0 mg/dl (6-23); Calcium 8.6 mg/dl (8.6-10.3); Carbon Dioxide 26.0 mmol/L (21-32); Chloride 103.0 mmol/L (98-107); Creatinine Clr Calc Pharmacy 116.4 ml/min; Glucose 227.0 mg/dl (70-99(Fasting)); Potassium 4.5 mmol/L (3.5-5.1); Sodium 134.0 mmol/L (136-145)
[2025-01-02] MEDS: CHOLECALCIFEROL 125 MCG (5,000 UNITS) TAB PO SCH (08:06)
[2025-01-02] MEDS: FENOFIBRATE NANOCRYSTALLIZED 48 MG TABLET PO SCH (08:07)
[2025-01-02] MEDS: ROSUVASTATIN CALCIUM 20 MG TAB PO SCH (08:07)
[2025-01-02] MEDS: EZETIMIBE 10 MG TAB PO SCH (08:07)
--- NOTE | 2025-01-02 08:29 | Hospitalist Progress Note ---
"Date of Service January 02, 2025 Assessment & Plan (1) Pain and swelling of right ankle: (2) Diabetes: (3) Diabetic peripheral neuropathy associated with type 2 diabetes mellitus: (4) Charcot's joint of foot in type 2 diabetes mellitus: (5) Poorly controlled type 2 diabetes mellitus: Plan Pt is a 54 M with a PMHx significant for T2DM w/ peripheral neuropathy + Charcot's to R ankle + s/p amputation of R foot toes, HTN, Hyperthyroidism, Dyslipidemia, Vit D deficiency, and morbid obesity who presented to the ED c/o worsening Rt ankle erythema and Pain x4days #Rt ankle pain - R/O Charcot vs Joint Infection vs OM; Ankle Xray 12/29 w/ subtle cortical irregularity at residual 5th metatarsal base adjacent to screw, can't r/o OM; Ankle MRI 01/01 w/ suspected acute OM of medial malleolus and lateral talus w/ lateral subluxation of ankle, subcutaneous edema that could be cellulitis -01/02 Labs not supportive of infection: WBC WBL, Procal WNL, CRP down-trending -Podiatry Consulted; w/ consideration to notable improvement, will observe for additional day and reconsider infectious cause vs acute worsening of Charcot's -Ice to affected area PRN -Tylenol prn mild/mod pain; Ibuprofen prn mild/mod pain; Oxycodone prn mod/severe pain -CBC, BMP, Procal, CRP, ESR in AM #T2DM | Peripheral Neuropathy | Charcot's Joint R ankle | S/P amputation of toes R foot - poorly controlled diabetic; 01/02 A1C 8.9 -HOLD Semaglutide -Glargine 50u BID -SSI w/ BSG range 100-150; CF 10; CR 5 #HTN | HLD - no acute concerns -Lisinopril 40mg PO daily -Ezetimibe 10mg daily, fenofibrate 54mg po daily, Statin 40mg daily #Hyperthyroidism - no acute concerns -Methimazole 5mg PO daily #Vit D Deficiency - no acute concerns -Cholecalciferol 125mcg daily #Morbid Obesity | BMI >40 - no acute concerns -Encourage diet/weight management #Current Tobacco Use - Pt states that he smokes cigars occasionally; D/C cigarettes 5mos [employer], per pt -Pt states he is not interested in nicotine replacement therapy VTE Proph: Starr, SCDs Dispo: Admit Med Surg; awaiting OT evaluation; PT is without concerns Admission and Anticipated Discharge Date Admission Date: January 01, 2025 Subjective Patient was sitting in bed today in NAD. Pt notes that his foot is feeling much better today and comments that he feels the redness has decreased significantly. Pt denies any cough, congestion, sore throat, SOB, CP, palpitations, abd pain/discomfort, N/V/D. Discussed Carb consistent diet with patient and what SSI is. Review of Systems Review of Systems: All systems reviewed & are unremarkable except as noted in Subjective Physical Exam Physical Exam: General: Pt is a 54 y/o Morbidly Obese M in NAD in bed. VS: reviewed - remarkable for tachycardia Skin: Mostly healed ulceration seen on lateral aspect of distal/lateral R foot, wound is without erythema, drainage, or pain to palpation; Erythema surrounding medial ankle is improved significantly from admission; Skin is otherwise warm, dry and intact. Respiratory: CTA bilat, no adventitious sounds noted. Chest expansion is full and symmetrical Cardio: RRR no murmurs Abdomen: Round, normoactive BS x4, nontender to palpation MSK: R foot is w/out any toes; pain to palpation/erythema noted over Rt Medial ankle which is greatly improved from yesterday, pain no longer extends down into heel; pt denies pain at distal aspect of foot, no pain to palpation of ulceration; FROM of extremities othewise Extremities: no edema Neuro: A&Ox4, cooperative Results & Data Results & Data Vital Signs (Past 12 Hours) Vital Signs Temp Pulse Resp BP BP Pulse Ox O2 Del Method 01/02/25 07:39 97.9 F 69 22 148/83 H 96 Room Air 01/01/25 22:55 97.3 F L 80 18 168/89 H 99 Room Air Laboratory Results Reviewed: CBC, CMP, Procal, CRP, ESR, HbA1c PG Care Time/CCT Total # of Minutes Spent Total Time Spent with Patient: Total time spent is greater than 50% in coordination of care (as documented) at patient's floor/unit and/or counseling patient: Coding Level of Care Code 99820 SUB INP/OBS CARE 3/50MIN Diagnoses Pain and swelling of right ankle M25.571; M25.471 Diabetes E11.9 Diabetic peripheral neuropathy associated with type 2 diabetes mellitus E11.42 Charcot's joint of foot in type 2 diabetes mellitus E11.610 Poorly controlled type 2 diabetes mellitus E11.65"
[2025-01-03 07:10] VITALS: RESP 16
[2025-01-03 08:17] LABS: Hematocrit (blood only) 42.9 % (42.0-52.0); Hemoglobin 14.3 g/dL (14.0-18.0); Immature Granulocytes # (auto) 0.02 K/uL (0.01-0.20); Immature Granulocytes % (auto) 0.3 %; Mean Corpuscular Hemoglobin 26.0 pg (25.0-34.0); Mean Corpuscular Volume 78.0 fL (80.0-100.0); Platelet Count 174 K/uL (130-400); RDW Standard Deviation 37.3 fL (36.4-46.3); Red Blood Count 5.50 M/uL (4.70-6.10); White Blood Count 6.16 K/ul (4.8-10.8)
[2025-01-03 08:48] LABS: Anion Gap 5.0 (3-11); Blood Urea Nitrogen 15.0 mg/dl (6-23); Calcium 8.9 mg/dl (8.6-10.3); Carbon Dioxide 31.0 mmol/L (21-32); Chloride 100.0 mmol/L (98-107); Creatinine Clr Calc Pharmacy 111.2 ml/min; Glucose 182.0 mg/dl (70-99(Fasting)); Potassium 4.7 mmol/L (3.5-5.1); Sodium 136.0 mmol/L (136-145)
--- NOTE | 2025-01-03 12:33 | Discharge Summary ---
Discharge Summary Date of Service January 03, 2025 Principal Dx & Hospital Course #1 = Principal Diagnosis (1) Pain and swelling of right ankle: (2) Diabetes: (3) Diabetic peripheral neuropathy associated with type 2 diabetes mellitus: (4) Charcot's joint of foot in type 2 diabetes mellitus: (5) Poorly controlled type 2 diabetes mellitus: Plan #Rt ankle pain - R/O Charcot vs Joint Infection vs OM - Pt is a 54 M with a PMHx significant for T2DM w/ peripheral neuropathy + Charcot's to R ankle + s/p amputation of R foot toes, HTN, Hyperthyroidism, Dyslipidemia, Vit D deficiency, and morbid obesity who presented to the ED c/o worsening Rt ankle erythema and Pain x4days. While pt was in the hospital, he received an Ankle Xray on 12/29 that revealed a subtle cortical irregularity at the 5th metatarsal base adjacent to screw and OM could not be r/o. A follow up MRI of the Ankle on 01/01 suspected acute OM of medial malleolus and lateral talus w/ lateral subluxation of ankle in addition to subcutaneous edema that could be related to possible cellulitis. Despite the aforementioned imaging, pt's WBC cound remained at baseline, Procalcitonin was negative, ESR remained stable, and CRP down-trended during inpatient stay. Podiatry was consulted and believes that this is most likely flare of pts Charcot Joint which is supported by clinical improvement of sx despite holding abx initially rx during pts initial ED visit on 12/29. Pt should continue to apply Ice to affected area during episodes of increased pain and can continue to take Tylenol prn as described on OTC medication bottle. Pt should follow-up closely with diabetic foot clinic to receive total contact casting. Pt should additionally follow-up with Podiatry w/ in one week of d/c. Pt should finish course of Cephalexin and Bactrim as previously described at home. #T2DM | Peripheral Neuropathy | Charcot's Joint R ankle | S/P amputation of toes R foot - Pt had an A1C 8.9 on 01/02. Pt should resume home insulin regimen and continue Semaglutide. #HTN | HLD - Continue home Lisinopril, Ezetimibe, Fenofibrate, and Statin as prescribed. #Hyperthyroidism - Continue Methimazole at home as prescribed. #Vit D Deficiency - Continue home Cholecalciferol 125mcg daily. #Morbid Obesity | BMI >40 - Pt should continue to work on improving diet and strive for better weight management. #Current Tobacco Use - Encourage d/c use of cigars. Dispo: Home, self-care; close follow-up with diabetic foot clinic and podiatry Admission HPI Per Admitting Provider Pt is a 54 M with a PMHx significant for T2DM w/ peripheral neuropathy + Charcot's to R ankle + s/p amputation of R foot toes, HTN, Hyperthyroidism, Dyslipidemia, Vit D deficiency, and morbid obesity who presented to the ED c/o worsening Rt ankle erythema and Pain. 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 He notes that the pain continued to worsen over that night which resulted in him coming to [facility] ED on 12/29 where he was given IV abx; uric acid at that time was negative. Pt was offered inpatient stay but declined and was d/c home with a rx for [place], Bactrim and Keflex. Pt notes that his pain had improved significantly on 12/30 but then noticed worsening pain & erythema on 12/31. Pt notes that it became extremely painful to bear weight on the joint and notes that it is now painful for him to move the ankle. Pt attended his DM foot care appt this AM and states that it was recommended for him to come back to the ED with his worsening pain. Pt tried [place], Tylenol, and Ibuprofen w/ good relief. Pt states that he also would place ice on the joint with good relief of sx. Pt admits to difficulty sleeping secondary to pain and an episode of diarrhea after starting his home medications. Pt denies H/A, congestion, sore throat, cough, SOB, CP, palpitations, N/V, and changes in appetite. Pt was seen in ED 12/29 where a Uric Acid was negative. Pt was transported to the ED via . While in the ED, the patient received Toradol and IV Morphine. Pt is being admitted for further evaluation and care. Discharge Exam General: Pt is a 54 y/o Morbidly Obese M in NAD in bed. VS: reviewed - remarkable for tachycardia Skin: Mostly healed ulceration seen on lateral aspect of distal/lateral R foot, wound is without erythema, drainage, or pain to palpation; Erythema surrounding medial ankle is improved significantly from admission; Skin is otherwise warm, dry and intact. Respiratory: CTA bilat, no adventitious sounds noted. Chest expansion is full and symmetrical Cardio: RRR no murmurs Abdomen: Round, normoactive BS x4, nontender to palpation MSK: R foot is w/out any toes; pain to palpation noted over Rt Medial ankle w/ mild improved area of erythema; pt denies pain at distal aspect of foot, no pain to palpation of ulceration; FROM of extremities othewise Extremities: no edema Neuro: A&Ox4, cooperative Discharge Plan Discharge Items Patient Disposition: Home - Self-Care Reason For Visit: RT ANKLE PAIN, R/O INFECTION, CHARCOTS Discharge Diagnosis: Rt Ankle Pain Condition on Discharge: Fair Activity: Resume your previous activity Non-emergency contact: Primary Care Provider Call non-emergency contact if: you have any medication questions, your symptoms worsen, your pain is not controlled, your pain is worsening and your pain is concerning for you Follow-up/Referrals: Raudel Alejo DPM [Surgeon] - (Follow-up within 1 week ) Lisandro Garza DO [Primary Care Provider] - Diet: Carb Consistent or DM2 Addtl Attending Provider Instructions: Hospital Course: You were admitted to the hospital for worsening redness, pain and swelling of your R ankle. While you were in the ED, an Xray revealed an irregularity at the base of the bone where your pinkie toe was removed that may have been suggestive of osteomyelitis (bone infection). As a result, an MRI of the ankle was done on 01/01 that was suspicious for acute onset of osteomyelitis of your ankle bone and heel bone. The same MRI also revealed swelling that could have been indicative of cellulitis. However, despite having no antibiotics while you were in the hospital, your symptoms began to improve and your blood work did not indicate the presence of an infectious process. Podiatry was consulted an believes that this was most likely a flare of your Charcot Joint. With consideration to your improved clinical course and lab work not indicating an infectious process, you are able to be discharged home. Discharge Plan: -You should follow-up within one week of discharge with your Bible Reader, Dr Alejo. It's incredibly important that you follow-up for management and close observation of your current condition. -It's additionally important that you follow-up with the diabetic foot clinic to receive total contact casting for your right foot. -Monitor closely for increased pain, redness, or swelling - if you become concerned with your pain, please return to the ED -Please continue to elevate your leg at home and apply Ice to the affected area as needed -Minimize the amount of weight bearing on your leg much as possible and use crew walker for short distances and transfers -Please continue the abx prescribed to you on 12/29: Cephalexin, Bactrim - these will be included on your d/c medication list -You can continue to take Tylenol PRN for pain, please take the medication as d irected on the bottle and do not exceed maximum dosing. -Please follow-up with your primary care provider within one week of discharge. Medications: Your medication list has been reviewed and reconciled upon discharge to ensure accuracy and continuity of care. An updated list of all your medications is included with your hospital discharge paperwork. Please review this list closely, and make note of any changes. Take your medications as instructed; do not skip a dose of your medicines. Make sure all of your doctors know every medicine you are taking (including ove [id number] medicines, vitamins, and supplements). Call your primary care provider before taking any new medicines (including over- the-counter medicines, vitamins, and supplements), because some of these may interact with your current medications, or may make your symptoms worse. Tell your primary care provider if you cannot afford your medications. Activity: You can do normal everyday activities as your body allows. Take rest breaks if you feel tired. Do not overexert. Stop activity if you have pain, shortness of breath or feel dizzy. CONTACT YOUR PRIMARY CARE PROVIDER if you experience any of the following: Shortness of breath or difficulty breathing Fevers or chills Feeling tired with normal activity or experiencing dizziness or fainting Difficulty following your treatment plan, or difficulty taking medications CALL 911 OR GO TO THE EMERGENCY DEPARTMENT if you experience any of the following: Sudden worsening pain in your foot Severe chest pain, or chest pain that radiates (moves) to your jaw or arm Sudden, severe shortness of breath or difficulty breathing Thank you for choosing [facility], were happy to assist in your care. Pending Studies at Discharge: No Stand-Alone Forms: My [facility], Smoking Cessation Medications and DC Order Prescriptions: Continued (DME) blood sugar diagnostic Strip See Rx Instructions .ROUTE .MEDSUPPLY Qty: 300 4RF Rx Instructions: test 3 times daily (DME) FreeStyle Alex 2 [place] Misc See Rx Instructions .Route Qty: 1 0RF Rx Instructions: use to monitor blood sugars insulin glargine [Lantus Solostar U-100 Insulin] 100 unit/mL (3 mL) insulin pen 50 unit SQ BID 90 Days Qty: 90 3RF cholecalciferol (vitamin D3) 125 mcg (5,000 unit) capsule 125 mcg PO Q OTHER DAY 90 Days Qty: 45 3RF ezetimibe 10 mg tablet 10 mg PO DAILY Qty: 30 5RF (DME) FreeStyle Alex 2 Sensor Kit See Rx Instructions .Route Qty: 6 3RF Rx Instructions: change Q14D lisinopril 40 mg tablet 40 mg PO DAILY Qty: 90 3RF (DME) pen needle, diabetic 32 gauge x 5/32" needle See Rx Instructions .ROUTE .MEDSUPPLY Qty: 400 3RF Rx Instructions: use with insulin 4 times daily methimazole 5 mg tablet 5 mg PO DAILY Qty: 30 3RF fenofibrate 54 mg tablet 54 mg PO DAILY Qty: 90 3RF gabapentin 800 mg tablet 800 mg PO TID 90 Days Qty: 270 0RF rosuvastatin 40 mg tablet 40 mg PO DAILY Qty: 90 3RF (DME) lancets [OneTouch Delica Lancets] 30 gauge misc See Rx Instructions .ROUTE .MEDSUPPLY Qty: 300 3RF Rx Instructions: 3 times daily insulin aspart U-100 [Novolog FlexPen U-100 Insulin] 100 unit/mL (3 mL) insulin pen 25 unit subcut TID MDD 150 units Rx Instructions: Inject 25 units three times a day plus sliding scale semaglutide 2 mg/dose (8 mg/3 mL) pen injector 2 mg subcut WK Rx Instructions: FRIDAYS sulfamethoxazole-trimethoprim [Bactrim DS] 800-160 mg tablet 1 tab PO BID 10 Days Qty: 20 0RF cephalexin 500 mg capsule 500 mg PO TID 10 Days Qty: 30 0RF Discharge Orders: Discharge Order (Routine); Ordered 01/03/25 Ordered By: Briseida Mireles Admission Data Admit Date/Time: 01/01/25 15:10 Attending Provider: Steve Yusuf Admit Provider: Steve Yusuf Primary Care Provider: Lisandro Garza Other Providers: Steve Yusuf Hospital Stay Data Consultations 01/01/25 13:54 ED Decision to Admit Stat Diagnostic Imagining Performed 01/01/25 13:36 MRI Ankle [MR ankle RT wo con] Stat Discharge Instructions Given to Patient (Per Discharging Provider) Hospital Course: You were admitted to the hospital for worsening redness, pain and swelling of your R ankle. While you were in the ED, an Xray revealed an irregularity at the base of the bone where your pinkie toe was removed that may have been suggestive of osteomyelitis (bone infection). As a result, an MRI of the ankle was done on 01/01 that was suspicious for acute onset of osteomyelitis of your ankle bone and heel bone. The same MRI also revealed swelling that could have been indicative of cellulitis. However, despite having no antibiotics while you were in the hospital, your symptoms began to improve and your blood work did not indicate the presence of an infectious process. Podiatry was consulted an believes that this was most likely a flare of your Charcot Joint. With consideration to your improved clinical course and lab work not indicating an infectious process, you are able to be discharged home. Discharge Plan: -You should follow-up within one week of discharge with your Bible Reader, Dr Aljeo. It's incredibly important that you follow-up for management and close observation of your current condition. -It's additionally important that you follow-up with the diabetic foot clinic to receive total contact casting for your right foot. -Monitor closely for increased pain, redness, or swelling - if you become con cerned with your pain, please return to the ED -Please continue to elevate your leg at home and apply Ice to the affected area as needed -Minimize the amount of weight bearing on your leg much as possible and use crew walker for short distances and transfers -Please continue the abx prescribed to you on 12/29: Cephalexin, Bactrim - these will be included on your d/c medication list -You can continue to take Tylenol PRN for pain, please take the medication as directed on the bottle and do not exceed maximum dosing. -Please follow-up with your primary care provider within one week of discharge. Medications: Your medication list has been reviewed and reconciled upon discharge to ensure accuracy and continuity of care. An updated list of all your medications is included with your hospital discharge paperwork. Please review this list closely, and make note of any changes. Take your medications as instructed; do not skip a dose of your medicines. Make sure all of your doctors know every medicine you are taking (including tyfc-cle-kllosgm medicines, vitamins, and supplements). Call your primary care provider before taking any new medicines (including over- the-counter medicines, vitamins, and supplements), because some of these may interact with your current medications, or may make your symptoms worse. Tell your primary care provider if you cannot afford your medications. Activity: You can do normal everyday activities as your body allows. Take rest breaks if you feel tired. Do not overexert. Stop activity if you have pain, shortness of breath or feel dizzy. CONTACT YOUR PRIMARY CARE PROVIDER if you experience any of the following: Shortness of breath or difficulty breathing Fevers or chills Feeling tired with normal activity or experiencing dizziness or fainting Difficulty following your treatment plan, or difficulty taking medications CALL 911 OR GO TO THE EMERGENCY DEPARTMENT if you experience any of the following: Sudden worsening pain in your foot Severe chest pain, or chest pain that radiates (moves) to your jaw or arm Sudden, severe shortness of breath or difficulty breathing Thank you for choosing [facility], were happy to assist in your care. Total Time Total Time Spent Total Time Spent (In Minutes): Time spent day of discharge 50 minutes including direct patient care, medication reconciliation, documentation, review of labs and images, and coordination of care. Coding Level of Care Code 66980 INP/OBS DISCH >30 MIN Diagnoses Pain and swelling of right ankle M25.571; M25.471 Diabetes E11.9 Diabetic peripheral neuropathy associated with type 2 diabetes mellitus E11.42 Charcot's joint of foot in type 2 diabetes mellitus E11.610 Poorly controlled type 2 diabetes mellitus E11.65
[2025-01-03 14:33] VITALS: BP 157/93; PULSE 80; TEMP 98.1
--- NOTE | 2025-01-03 15:21 | Podiatry Progress Note ---
Date of Service January 03, 2025 Assessment & Plan (1) Pain and swelling of right ankle: (2) Diabetic peripheral neuropathy associated with type 2 diabetes mellitus: (3) Charcot's joint of foot in type 2 diabetes mellitus: Plan Patient's right foot reevaluated today with persistent erythema and edema centered over the medial malleolus. Patient reports decreased pain overall and has been ambulating in [place] boot to use the restroom with minimal discomfort compared to preadmission. - At this point despite extensive review of imaging findings, MRI and x-ray images themselves and patient's labs in conjunction with the clinical picture and it is impossible to rule out osteomyelitis in the medial aspect of the ankle. I do recommend core needle biopsy with a Jamshidi needle of the medial talus and medial malleolus for definitive diagnosis. Patient refusing bone biopsy at this time and would like to continue with conservative care and close monitoring of his condition. - Patient is okay for discharge from podiatry standpoint. He is encouraged to minimize weightbearing to the right lower extremity whenever possible. Rest with the right lower extremity elevated throughout the day. For short distance and use the restroom will wear his [place] boot. -Encouraged to monitor redness swelling and pain in the right ankle closely and return to the emergency department with any declining symptoms including increased redness, swelling, drainage, pain. In addition should patient develop any nausea, vomiting, fever, chills, shortness of breath or chest pain he is encouraged to report to emergency department for further evaluation. - Recommend patient resume p.o. antibiotic therapy including p.o. Bactrim and Keflex until complete taking as written. - Patient will follow-up in the diabetic foot clinic following discharge. Assuming stable condition would recommend initiation of total contact casting and recommend continued casting with weekly cast changes until condition has resolved. At this time we will likely resume [place] boot at all times when ambulating. Lengthy discussion with patient regarding management of his right lower extremity moving forward. We reviewed the fact that he has pain in the right lower extremity at all times while ambulating despite the use of a [place] walker and this is unlikely to be at the best possible functional outcome for him. Continuing conservative management and bracing with a [place] walker is considered a palliative measure and not a curative measure for his current condition. Discussed potential benefits of below the knee amputation as a more definitive treatment option which is likely to be a much more functional limb for the patient with a decreased risk of recurrent ulceration and infection. Admission and Anticipated Discharge Date Admission Date: January 01, 2025 Subjective Patient seen resting comfortably in hospital bed. He reports ambulating a few times this morning with his [place] walker in place to the right lower extremity with mild pain to the right ankle which he reports is close to baseline. Denies nausea, vomiting, fever, chills. We discussed recommendation for bone biopsy to definitively rule out osteomyelitis in the right ankle however patient respectfully declines and would prefer to "leave well enough alone." I do not believe this is an unreasonable approach however will require close monitoring of symptoms with prompt medical care should symptoms decline. Discussed the risk of developing severe infection of the right lower extremity, sepsis, . Patient voices understanding of risks and prefers close outpatient follow-up. Review of Systems Review of Systems: Denies nausea, vomiting, fever, chills, shortness of breath, chest pain. Physical Exam Physical Exam: Const: General: 54-year-old male with a history of transmetatarsal amputation on the right foot. Appears well and in no acute distress.Appears well developed and well nourished. CV: Extremities: Capillary refill time is less than 2 seconds all digits of the bilateral foot. Posterior tibial and dorsalis pedis pulses are palpable bilateral. Lymph: No palpable or visible regional lymphadenopathy. Skin: Well-healed cicatrix from transmetatarsal amputation. Preulcerative lesion lateral aspect of the fifth metatarsal remnant right foot. Neuro: Loss of protective sensation bilateral foot status with [place] Deb 5.0 7 monofilament. Psych: Mood/Affect: Mood is normal. Affect is normal. Cognition: Orientation is intact to person, place and time. Focused lower extremity musculoskeletal exam: Leg: No pain with compression of the calf muscle. Ankles: Normal to inspection and palpation. No swelling bilaterally. No tenderness bilaterally.Motor strength is intact. Feet: - Integumentary: Blood-tinged hyperkerat otic lesion and location of previous ulceration at the lateral aspect of the right foot overlying the fifth metatarsal remnant and site of fractured hardware. No signs of local soft tissue infection in this location. Hyperkeratotic lesion is reduced with no underlying wound. - Musculoskeletal: - Gait: Ambulates with [place] walker on the right foot and diabetic shoe with molded insert on the left foot. 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 Status post transmetatarsal amputation well-healed no signs of local soft tissue infection. Stable erythema and edema surrounding the medial aspect of the right ankle. Mild discomfort to palpation right medial ankle. Results & Data Results & Data Vital Signs (Past 12 Hours) Vital Signs Temp Pulse Resp BP BP Pulse Ox O2 Del Method 01/03/25 14:33 36.7 C 80 16 157/93 H 96 Room Air 01/03/25 07:08 36.6 C 72 16 166/88 H 96 Room Air Laboratory Results WBC 6.16 ESR stable at 56 Decrease CRP from 6.09 to 3.13 Procalcitonin 0.04 Coding Level of Care Code 08935 SUB INP/OBS CARE 2/35MIN Diagnoses Pain and swelling of right ankle M25.571; M25.471 Diabetic peripheral neuropathy associated with type 2 diabetes mellitus E11.42 Charcot's joint of foot in type 2 diabetes mellitus E11.610
== END 2025-01-03 17:30 | disposition home or self-care (01) | DRG 74 ==
LOC: ED 12:46 → INTOOBSV 15:10 → EDINP 15:10 → 3N 17:27